=== PATIENT | male | born 1945 | race Caucasian/White ===

== ENCOUNTER → 2019-06-03 08:24 | Outpatient (CLI) | payer MEDICARE, SELFPAY ==
--- NOTE | 2019-06-03 08:29 | NM_ITS ---
CLINICAL: 76-year-old male with reported history of painful left knee arthroplasty operated approximately 12 years previous. LIMITED 99m Tc MDP THREE PHASE BONE SCINTIGRAPHY COMPARISON: None available FINDINGS: Following the intravenous administration of 21.3 mCi of 99m Tc MDP, three-phase bone acquisitions of the knee articulations reveal: 1. The flow and immediate static blood pool acquisitions demonstrate normal-symmetric arterial phase distribution of the radiopharmaceutical. Venous hyperemia appears evident in the region of the left patella. 2. Delayed images depict persistent increased radiopharmaceutical concentration visualized in the left knee-patella corresponding to the blood pool changes. 3. Facilitated uptake is noted in the medial-lateral tibial and distal tibial components of both the painful left and asymptomatic right knee prostheses. 4. Mild increased tracer distribution is noted in the patellofemoral compartment of the right knee. The remaining limited skeletal structures are scintigraphically unremarkable. NM/Bone Scan Three Phase IMPRESSION: 1. The increase in radiopharmaceutical concentration identified in the left patella likely represents trauma-fracture. 2. Enhanced tracer distribution noted in the tibial components of the painful left knee prosthesis may represent minimal loosening. If an infectious etiology is a diagnostic consideration, correlation with labeled leukocyte imaging is recommended. 3. Increased radiotracer uptake noted in the tibial components of the asymptomatic right knee prosthesis is most consistent with normal postsurgical change. Patellofemoral compartment uptake noted in the right knee is commensurate with degenerative arthritis in the absence of patellar hardware placement. Electronically Signed: Néstor Hodge DO at 23:39 EDT Tel , Service support ,
== END ==
PROVIDERS: Family Provider Internal Medicine; PCP Internal Medicine; Referring Provider Physician Assistant; Visit Provider Physician Assistant
DX: Z96.652 Presence of left artificial knee joint (principal)
CPT/HCPCS: 78315

== ENCOUNTER → 2019-06-18 13:24 | Outpatient (CLI) | payer MEDICARE, SELFPAY ==
--- NOTE | 2019-06-18 13:26 | CT_ITS ---
STUDY: CT LEFT KNEE WITHOUT CONTRAST REASON FOR EXAM: Male, 74 years old. Pain after getting out of car, total knee replacement 12 years ago RADIATION DOSAGE (If Supplied By Facility): CTDIvol = ( 15.35 ) mGy, DLP = ( 416.39 ) mGycm TECHNIQUE: Transaxial CT imaging of the knee was performed. Coronal and sagittal images were reformatted. Individualized dose optimization techniques were used for this CT. COMPARISON: None. FINDINGS: Status post total left knee replacement changes are seen. The study is limited secondary to excessive scanning artifact. There is a small suprapatellar effusion. There is no evidence of fracture, dislocation, or implant loosening. CT/Extremity Lower without Contra IMPRESSION: Limited study secondary to excessive scanning artifact. Status post total left knee replacement changes noted with implants appearing in good position. There is no evidence of implant loosening or new associated fracture or dislocation. Plain film correlation may be helpful. Electronically Signed: Kavon Jerome MD at 20:07 EDT , Service support ,
== END ==
PROVIDERS: Family Provider Internal Medicine; PCP Internal Medicine; Referring Provider Specialist; Visit Provider Specialist
DX: M25.562 Pain in left knee (principal); Z96.652 Presence of left artificial knee joint
CPT/HCPCS: 73700

== ENCOUNTER 2019-07-10 09:02 | Inpatient (IN) | payer MEDICARE, SELFPAY ==
--- NOTE | 2019-06-24 08:04 | PCM.HP.BLA ---
History and Physical Patient Name: Nixon Byrd : 1945 From: JOHN VENEGAS PA-C DATE OF SURGERY: 07/10/2019 SCHEDULED PROCEDURE: Left knee polyethylene exchange and possible revision patella component HISTORY OF PRESENT ILLNESS: Preoperative history and physical exam was performed on June 20, 2019. This is a 74-year-old male who has presence of bilateral total knees with his left knee done on September 21, 2007 followed by the right knee on September 01, [address] Nadeem Figueroa. Patient has had pain in bilateral knees over the past 1-2 months. Patient's pain has been increased with going up and down stairs, walking, and standing. Pain is been intermittent and dull. Pain is located over the patella on the left. Patient has had difficult time with leisure activities such as playing softball with his granddaughters. He feels unsafe doing yard work due to the knee pain. He gets clunk sensation in the left knee. Problems after working on his knees in a trench initially. Patient did feel a small pop at that time in front of the knee. The left knee pain has been very disabling. He has been using 2 canes for ambulatory assistance. Pain is primarily over the patella. Patient did have a workup for lab work for infection which was negative. Patient currently denies any chest pain, shortness of breath, fevers chills, recent infections. He has medical history pertinent for fibromyalgia and hypertension. After failure of conservative measures and discussing treatment options of Dr. Richy Christine, the patient does wish to proceed with a revision left knee with polyethylene exchange and possible revision patella component. REVIEW OF SYSTEMS: ROS: Const: Denies anorexia, anxiety, change in appetite, fever and weight change,hard of hearing, and vision problems. CV: Denies chest pain, heart murmur, irregular heartbeat and peripheral vascular disease. Resp: Reports asthma and cough, but denies pneumonia, sleep apnea, shortness of breath, tuberculosis and wheezing. GI: Reports heartburn, but denies constipation, diarrhea, nausea, bloody stools and vomiting, and difficulty swallowing. : Denies incontinence. Musculo: Denies leg swelling, trouble walking and weakness and limp. Skin: Reports history of shingles, but denies Raynaud's and tattoo. Neuro: Denies ambulatory dysfunction, dizziness, numbness/tingling and tremor. Psych: Denies anxiety, depression, insomnia, mental illness and stress. Sánchez/Lymph: Denies anemia, bleeding/bruising tendency and past transfusion. Reviewed and updated. PAST MEDICAL HISTORY: Advance Care Plan: No Advance Directives Effective Date: 05/28/2019 PMH: Medical Problems: Arthritis, High Blood Pressure, Fibromyalgia Accidents: None Surgical Hx: Tonsillectomy - (1949) Knee Replacement - LT KNEE [facility] MSK 09/21/07 RT TKR - (09/01/2008) KNAPIC @ [facility] Hip Replacement LT - (2015) [facility] Anesthesia Complications: None Assistive Devices: Glasses, Cane Reviewed and updated. 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 Personal Habits: Cigarette Use: Former - 28 years 1 pack/day for 20 years.Smokeless Tobacco: Never Used Smokeless Tobacco.E-Cigarette Use: Never used.Alcohol: Occasionally.Drug Use: Denies Use.Enjoy Exercising: Exercises 1-3 X/Week. Reviewed and updated. VITALS: Ht: 61.5 Wt: 258lb Wt k.029 BMI: 48.0 BP: 145/90 Pulse: 91 Resp: 12 T: 98.2 T: 36.8C ALLERGIES: No Known Drug Allergy MEDICATIONS: Celebrex 200 mg I PO Q Day With Food, Hydrochlorothiazide 25 mg 1 PO daily, Nexium 40 mg 1 po daily, Diltiazem XR 240 mg 1 po daily, Centrum Silver 1 PO qd, Fish Oil 1200mg 2 po daily, Metamucil Original Texture 48.57 % daily, Lipitor 20 mg 1 po q hs, Aspir-81 81 mg 1 po qd, Flonase Allergy Relief 50 mcg/Act 1 spray in each nostril AT bedtime, Breo Ellipta 100-25 mcg/Inh 1 inhalation daily, Singulair 10 mg 1po daily @ bed, Ultram 50 mg 1-2 by mouth q6 hour as needed pain, Losartan Potassium 50 mg 1po bid, Magnesium Oxide 400 mg 1po qday PRE-OP EXAM: General appearance:NORMAL Other: Eyes: Conjunctivae and lids: NORMAL Pupils: ERR Ears, Nose, Mouth, and Throat: NORMAL Other: Inspection of lips, teeth and gums: NORMAL Other: Neck: Examination of neck: no masses noted. Respiratory: Assessment of respiratory effort: NORMAL Other: Auscultation of lungs: clear to auscultation no wheezes, rhonchi or rales. Cardiovascular: Auscultation of heart: regular rate and rhythm, no murmurs, gallops or rubs. Gastrointestinal: Exam of abdomen: soft, nontender, nondistended bowel sounds present. PHYSICAL EXAMINATION: Impression does walk with an antalgic gait requiring 2 canes. Previous left knee incision is well-healed without erythema or signs of infection. Patient does have tenderness to palpation along the left patella with a clunk with flexion to extension. Sensation intact to light touch. Neurovascularly intact. IMAGING STUDIES: X-rays of the left knee show well fixed femoral and tibial implants bilaterally. Patellas are not definitively viewable but on the left there does appear to be a lucency consistent with a vertical patella fracture. Bone scan also revealed postsurgical changes in the right tibia and possible loosening on the left. There are patella changes on the left side consistent with trauma or fracture. IMPRESSION: 1. Painful left total knee arthroplasty with concern for loosening of the patellar component 2. Hypertension 3. Fibromyalgia PLAN: Dr. Richy Christine did discuss and review with the patient all treatment options including surgical versus nonsurgical options. Patient does wish to proceed with the above-stated procedure. Potential risks, benefits, and complications of the procedure were discussed in detail including but not limited to , infection, nerve and blood vessel damage, persistent pain, numbness, tingling, paresthesias, blood clot, pulmonary embolism, and requirement for possible further surgery. The patient expressed full understanding and has no further questions for the doctor. Patient does agree to proceed with the above-stated procedure and has signed the surgery consent form. This dictation was created using voice recognition software. Phonetic and/or grammatical errors may exist.. ___ I have re-examined the patient. There are no clinical changes since date of exam. ___ See progress notes for changes. ___ Dictated on admission Date: Time: Signature:
[2019-06-27 14:33] VITALS: BP 144/87; PULSE 78; RESP 18; TEMP 36.8; O2SAT 93; BMI 39.9
--- NOTE | 2019-06-27 15:05 | SDCEKG_ITS ---
Test Reason : Blood Pressure : / mmHG Vent. Rate : 069 BPM Atrial Rate : 069 BPM P-R Int : 170 ms QRS Dur : 134 ms QT Int : 450 ms P-R-T Axes : 053 018 003 degrees QTc Int : 482 ms Normal sinus rhythm Right bundle branch block Abnormal ECG Confirmed by ZOYA MOJICA ([id number]), order editor QUENTIN DA SILVA ([id number]) on 07/02/2019 1:03:32 PM Referred By: Richy Christine Confirmed By:ZOYA MOJICA
[2019-06-27 16:32] LABS: Anion Gap 4 (5-15); BUN 21 mg/dL (7-18); BUN/Creat Ratio 19.8 RATIO (10-20); Calcium,Total 9.1 mg/dL (8.5-10.1); Chloride 106 mmol/L (98-107); Creatinine, Serum 1.06 mg/dL (0.70-1.30); EST Glomerular Filtration Rate 72 mL/min (>60); Est Glom Filt Rate - Afr Amer 87 mL/min (>60); Estimated Creatinine Clearance 55.43 ml/min; Glucose 98 mg/dL (74-106); Potassium 3.7 mmol/L (3.5-5.1); Sodium Level 139 mmol/L (136-145)
[2019-07-10] VITALS (15 sets, daily range): BP systolic 125–165; BP diastolic 70–105; PULSE 80–95; RESP 18; TEMP 36.4–37.5; O2SAT 88–98; BMI 40.6
[2019-07-10] MEDS: Scopolamine 1mg/72hr Patch 1 PATCH TRANSDERM. (09:55)
[2019-07-10] MEDS: Gabapentin 600 MG Tablet PO (09:56)
[2019-07-10] MEDS: Acetaminophen 500 MG Tablet 1000 MG PO ×2 (09:56→18:11)
[2019-07-10] MEDS: Magnesium Sulfate 4gm/100mL 4 GM/100 ML IV.SOLN. IV (10:09)
[2019-07-10] MEDS: Lactated Ringers 1,000 ML 999 ML IV ×2 (10:11→14:13)
[2019-07-10 10:31] LABS: Bedside Glucose 96 mg/dL (70-110)
[2019-07-10] MEDS: Cefazolin 2 GM in 0.9% Normal Saline 100 ML IV (12:16)
--- NOTE | 2019-07-10 13:05 | OP.PCM_ITS ---
Report of Operation Date of Procedure: 07/10/19 Pre-Operative Diagnosis: Painful left total knee replacement, instability Post-Operative Diagnosis: Painful left total knee replacement, fractured polyethylene Surgery/Procedure Performed:: Revision total knee replacement 1 component, tibia Description of Surgical Findings:: 12 mm polyethylene was removed with fractured PS post and associated polyethylene wear. Patella and femoral and tibial components were stably effects. 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 Patient continued to have pain. Bone scan was not convincing for loosening. However he did have instability on examination. We attributed this to polyethylene wear and elected to proceed with polyethylene exchange. He also had some increased signal in the patella CT scan was done to rule out a fracture. We did discuss possibility of patella loosening to be determined intraoperatively and possible polyethylene exchange with a patella revision. Risks and benefits of the procedure were discussed with the patient including but not limited to blood loss, DVTs, PEs, neurovascular damage, infection, general risk of anesthesia including loss of life. Demonstrated understanding and was able to sign informed consent. On the date of procedure patient's L lower extremity was marked in the preopera tive area. The patient was then taken back to the operating room where the patient was placed on the table in the supine position. All bony prominences were identified a well-padded. Anesthesia assumed control of the C-spine and airway and remained controlled throughout the remainder of the procedure. A tourniquet was placed on the operative thigh and the leg was prepped in a sterile fashion. The surgeon then scrubbed at this time .Upon reentering the room left lower extremity was draped in a standard orthopedic fashion. A timeout was then called and everyone agreed upon the side, the site, the procedure to be performed, patient's identity and antibiotics given. A midline skin incision was made and sharp dissection was taken down through skin subcutaneous tissue and fat. Appropriate flaps were elevated medially and laterally. His arthrotomy was identified and the standard medial parapatellar incision was made and the patella was subluxed laterally. Upon opening the joint a small polyethylene tube fell out of the joint. This was the polyethylene post for the PS implant. The standard deep MCL release was done. At this point an aggressive synovectomy commenced. Our attention was first turned towards the subpatellar pouch and all suspicious synovium and tissues were debrided. We then directed our attention towards medial lateral gutters were these tissues were aggressively debrided. Knee was then flexed up the polyethylene was removed. Once polyethylene was removed we did the remainder of the synovium in the medial and lateral gutters and along the lateral structures and MCL. We then debrided the posterior knee. Knee was flexed up and culture was taken from the femoral notch. And also there was a membrane beneath the tibial baseplate that was removed and sent for culture. He had completed our synovectomy and were happy with the joint, the wound implants were examined. All implants appear to be well fixed even the patella. 6 L of normal saline were then irrigated throughout the wound with low-pressure lavage and the wound was once again explored. All remaining tissue that was suspicious was seen in the wound was once again irrigated with normal saline. 12 mm polyethylene was trialed and gave the knee stability. The 12 mm polyethylene was then opened and put back into place after appropriate trialing. Tourniquet was let down and hemostasis was obtained as well as possible. Once the final components were placed the wound was copiously irrigated with normal saline solution. The wound was closed in a layer solorzano fashion using #1 vicryl interrupted sutures for the arthrotomy, 2-0 interrupted Vicryl for the subcuticular layer and jaqui for final skin closure. A sterile compressive dressing was then placed. The patient was then awakened from anesthesia, transferred to the [place] and transferred to the PACU for recovery. Post op plan Patient will be weightbearing as tolerated. Baby aspirin twice daily for DVT prophylaxis. Range of motion and activity as tolerated. My physician nursing home assistant was a vital part of this case. He was important in appropriate retraction during the case, and protection of soft tissues during bony cuts. His intimate knowledge of the case and my steps aided in safe and expedient completion of the procedure as well as appropriate position of the leg during the case. He was also vital in assisting with closure under my direct supervision. Grafts/Implants Used: Natalia NexGen EF 12 mm posterior stabilized highly cross- linked polyethylen - Complications No intraoperative complications - Admit VTE Documentation VTE Present on Admission: No VTE Mechan Device Prophylaxis: SCD's, Thigh High EDMUNDO Hose VTE Pharm Prophylaxis ordered?: Yes
--- NOTE | 2019-07-10 13:14 | RAD_ITS ---
STUDY: X-RAY - LEFT KNEE REASON FOR EXAM: Male, 74 years old. Status post knee arthroplasty TECHNIQUE: 2 view(s) of the knee. COMPARISON: None. FINDINGS: Normal visualized distal femur. Normal visualized proximal tibia and fibula. Normal proximal tibiofibular articulation. Status post recent total knee arthroplasty with skin jaqui and subcutaneous emphysema.. The soft tissue structures are unremarkable. RAD/Knee 1 or 2 Views IMPRESSION: Status post recent total knee arthroplasty. Electronically Signed: Néstor Ash MD at 14:03 EDT Tel , Service support ,
[2019-07-10] MEDS: Lactated Ringers 1,000 ML 125 ML IV ×2 (14:14→17:07)
[2019-07-10] MEDS: Aspirin 81 MG TAB.CHEW PO (17:05)
--- NOTE | 2019-07-10 19:54 | PCM.PN.HOSP ---
Subjective: Post-op medical management note: 74-year-old male with past medical history of arthritis, high blood pressure, tonic back pain who comes in for elective left knee polyethylene exchange and revision of his patella. We have been consulted for medical management. Patient has been having worsening pain in his bilateral knees ongoing for 1 to 2 months, was with going up and down the staircase. At the time of being seen, patient denied any fever or chills or chest pain or dizziness or palpitations. Vitals showed temperature 97.5 F, heart rate 93, blood pressure 127/85, respiratory 18, SPO2 was 94% on room air. His BMP was unremarkable. Vitals/I&O's: Vital Signs Temp Pulse Resp BP Pulse Ox 98.4 F 91 18 128/72 H 93 07/10/19 19:40 07/10/19 19:40 07/10/19 19:40 07/10/19 19:40 07/10/19 19:50 Oxygen Flow Rate (L/min) 2 Oxygen Delivery Method Nasal Cannula Weight: 117.5 kg Body Mass Index (BMI) 40.6 Intake and Output for Last 24 Hours 07/08/19 07/09/19 07/10/19 23:59 23:59 23:59 Intake Total 3105.41 / 3105.41 Balance 3105.41 / 3105.41 General: Alert, Oriented x3, Cooperative, No apparent distress, - - Morbidly obese HEENT: Atraumatic, PERRLA, EOMI, Normocephalic Oral: Moist Mucosa Neck: Supple Lungs: Clear to auscultation, Normal air movement Cardiovascular: Regular rate, Regular Rhythm, Normal S1, Normal S2, No murmurs Abdomen: Bowel Sounds Present, Soft, Non Tender, Non-Distended, No Hepato-splenomegaly Extremities: No edema Skin: No rashes, No breakdown Musculoskeletal: No Tenderness to Palpation of Joints or Extremities Lymphatic: No Cervical, Supraclavicular, or Inguinal Adenopathy Neurological: Cranial nerves II-XII grossly intact, Neuro grossly intact Psych/Mental Status: Normal Affect, Appropriate Microbiology Past 72 Hours 07/10/19 Unknown Tissue - Knee Gram Stain - Final 07/10/19 Unknown Tissue - Knee Gram Stain - Final 07/10/19 Unknown Tissue - Knee Gram Stain - Final Laboratory Results 07/10/19 09:54: POC Glucose 96 Current Medications Acetaminophen (Tylenol) 1,000 mg PO Q8 [facility] Last Admin: 07/10/19 18:11 Dose: 1,000 mg Documented by: Albuterol Sulfate (Ventolin Aerosols) 2.5 mg INHALATION Q4H PRN PRN Reason: ASTHMA [facility]ir[facility] ([facility], Baby) [facility] Last Admin: 07/10/19 17:05 Dose: 81 mg Documented by: Atorvastatin Calcium (Lipitor) 20 mg PO QHS [facility] Celecoxib (Celebrex) 200 mg PO DAILY [facility] Diltiazem HCl (Cardizem Cd) 240 mg PO DAILY [facility] Famotidine (Pepcid) 20 mg PO DAILY [facility] Hydrochlorothiazide (Hctz) 25 mg PO DAILY [facility] Lactated Ringer's () 1,000 mls @ 125 mls/hr IV .Q8H [facility] Last Admin: 07/10/19 17:07 Dose: 125 mls/hr Documented by: Cefazolin Sodium () 1 gm in 50 mls @ 150 mls/hr IV Q8H [facility] Stop: 07/11/19 04:19 Influenza Virus Vaccine Quadrival (Flucelvax /Fluzone ) 0.5 ml IM .ONCE ONE Stop: 07/11/19 10:01 Insulin Human Lispro (Humalog Kwikpen (Bkc)) 1 - 6 unit SC Q4H PRN PRN; Protocol PRN Reason: BG>/= 180, SEE PROTOCOL Ketorolac Tromethamine (Toradol) 15 mg IV Q6H PRN PRN PRN Reason: Pain Score 1-5/10 Losartan Potassium (Cozaar) 50 mg PO BID [facility] Magnesium Oxide (Mag-Ox 400) 400 mg PO DAILY [facility] Meloxicam (Mobic) 7.5 mg PO BID [facility] Morphine Sulfate () 2 - 4 mg IV Q2H PRN PRN PRN Reason: Pain Score 6-10/10 Nutritional Formula (Lactose Free) (Ensure Enlive) 120 ml PO TIDCM [facility] Last Admin: 07/10/19 17:04 Dose: 120 ml Documented by: Ondansetron HCl (Zofran) 4 mg IV Q8H PRN PRN PRN Reason: NAUSEA Oxycodone HCl (Oxyir) 5 - 10 mg PO Q4H PRN PRN PRN Reason: Pain Score 4-10/10 Pantoprazole Sodium (Protonix) 40 mg PO DAILY [facility] Promethazine HCl (Phenergan) 12.5 mg IM Q6H PRN PRN; Protocol PRN Reason: NAUSEA/VOMITING Psyllium Hydrophilic Mucilloid (Metamucil) 1 packet PO DAILY [facility] Senna/Docusate Sodium (Senokot-S, Alicia-Colace) 2 tablet PO BID [facility] Vital Signs/Narrative: Vital Signs Temp Pulse Resp BP Pulse Ox 07/10/19 19:50 93 07/10/19 19:40 98.4 F 91 18 128/72 H 98 07/10/19 17:24 18 07/10/19 17:10 97.5 F L 93 18 127/85 H 94 Medical Necessity - Tobacco Use Smoking Status: Former smoker Tobacco Use: Non-smoker Assessment/Plan 1. Postop day #2 status post revision total knee replacement, pain is fairly controlled On scheduled Tylenol, celecoxib, meloxicam and as needed morphine Would recommend the patient be on one NSAID or not to NSAIDs at once We will hold meloxicam for now 2. Hypertension, will continue on diltiazem, hydrochlorothiazide 3. Hyperlipidemia, on statin 4. Morbid obesity, BMI 40.6, diet and exercise is recommended 5. DVT prophylaxis per primary team Code Visit Inpatient E&M: 85384 Subs Hosp L2
[2019-07-10] MEDS: Cefazolin 1 GM/50 ML BAG IV (20:01)
[2019-07-10] MEDS: Atorvastatin Calcium 20 MG Tablet PO (21:50)
[2019-07-10] MEDS: Losartan Potassium 50 MG Tablet PO (21:50)
[2019-07-10] MEDS: Senna/Docusate Sodium 1 Tablet 2 TABLET PO (21:50)
[2019-07-11] VITALS (7 sets, daily range): BP systolic 132–155; BP diastolic 64–89; PULSE 67–90; RESP 18; TEMP 36.4–37.2; O2SAT 89–96; BMI 40.6
[2019-07-11] MEDS: Cefazolin 1 GM/50 ML BAG IV (03:03)
[2019-07-11] MEDS: 0.9% Saline Lock 10 ML Syringe IV (05:16)
[2019-07-11] MEDS: Acetaminophen 500 MG Tablet 1000 MG PO ×2 (05:20→15:17)
[2019-07-11 05:53] LABS: Hemoglobin 14.6 g/dL (13.0-16.5); Mean Corp Hgb Conc 32.4 g/dL (32-36); Mean Corpuscular Hgb 29.1 pg (27.0-32.0); Mean Corpuscular Volume 89.8 fL (80-94); Mean Platelet Vol. 11.2 fl (6.2-12.0); Platelet Count 180 K/mm3 (150-450); RBC Distribution Width CV 13.3 % (11.6-14.6); RBC Distribution Width SD 43.8 fl (35.1-43.9); Red Blood Count 5.01 M/mm3 (4.6-6.2); White Blood Count 14.8 K/mm3 (4.4-11.0)
[2019-07-11 06:14] LABS: Anion Gap 11 (5-15); BUN 22 mg/dL (7-18); BUN/Creat Ratio 17.2 RATIO (10-20); Calcium,Total 8.5 mg/dL (8.5-10.1); Chloride 101 mmol/L (98-107); Creatinine, Serum 1.28 mg/dL (0.70-1.30); EST Glomerular Filtration Rate 58 mL/min (>60); Est Glom Filt Rate - Afr Amer 70 mL/min (>60); Glucose 136 mg/dL (74-106); Potassium 4.3 mmol/L (3.5-5.1); Sodium Level 137 mmol/L (136-145)
--- NOTE | 2019-07-11 08:26 | PCM.PN.ORT ---
Subjective: The patient was sitting in bed upon examination. Patient denies any chest pain, shortness of breath, dizziness, lightheadedness, nausea or vomiting, or calf pain. Pain is controlled on medications. No adverse overnight events. Patient's pain is been well controlled. Patient did require nasal oxygen due to drop in O2 saturation. He denies any chest pain or shortness of breath. Patient does have history of asthma at home in which he takes an inhaler. Overall patient is doing well postoperatively. Objective: Vital signs stable and afebrile. Patient is currently on nasal oxygen due to drop in O2 saturation. Patient is able to plantarflex and dorsiflex actively. Sensation is intact to light touch to saphenous, sural, superficial and deep peroneal, and tibial distribution. Dressing is clean dry and intact. Negative Homans bilaterally, negative signs and symptoms of DVT. - Physical Exam General: Alert, Oriented x3, Cooperative, No apparent distress Vital Signs Temp Pulse Resp BP Pulse Ox 97.6 F L 67 18 146/64 H 94 07/11/19 02:54 07/11/19 05:33 07/11/19 02:54 07/11/19 05:33 07/11/19 06:15 Oxygen Flow Rate (L/min) 1 Oxygen Delivery Method Nasal Cannula Weight: 117.5 kg Body Mass Index (BMI) 40.6 Intake and Output for Last 24 Hours 07/09/19 07/10/19 07/11/19 23:59 23:59 23:59 Intake Total 3517.91 / 3517.91 625.67 / 625.67 Output Total 800 / 800 850 / 850 Balance 2717.91 / 2717.91 -224.33 / -224.33 Microbiology Past 72 Hours 07/10/19 Unknown Gram Stain - Final Tissue - Knee 07/10/19 Unknown Gram Stain - Final Tissue - Knee 07/10/19 Unknown Gram Stain - Final Tissue - Knee Laboratory Tests Past 24 Hrs 07/11/19 07/11/19 05:22 05:22 WBC 14.8 H RBC 5.01 Hgb 14.6 Hct 45.0 MCV 89.8 MCH 29.1 MCHC 32.4 RDW Std Deviation 43.8 RDW Coeff of Bijan 13.3 Plt Count 180 MPV 11.2 Sodium 137 Potassium 4.3 Chloride 101 Carbon Dioxide 25.0 Anion Gap 11 BUN 22 H Creatinine 1.28 Estim Creat Clear Calc 45.90 Est GFR (MDRD) Af Amer 70 Est GFR (MDRD) Non-Af 58 L BUN/Creatinine Ratio 17.2 Glucose 136 H Calcium 8.5 POC Glucose 07/10/19 09:54 POC Glucose 96 Medical Necessity - Tobacco Use Smoking Status: Former smoker Tobacco Use: Non-smoker Assessment/Plan 1. S/P revision left total knee arthroplasty with polyethylene exchange POD #1 2. Continue Pain Medications: Tylenol and OxyIR 3. DVT Prophylaxis: Aspirin 81 mg twice daily for DVT prophylaxis 4. PT/OT: Weightbearing as tolerated 5. H & H: 14.6/45.0, asymptomatic 6. Reactive leukocytosis: Currently 14.8, afebrile. Patient did receive Decadron intraoperatively 7. Continue postoperative medical management per medicine: At this time patient is overall doing well and I would like to see how he does weaning off of oxygen today. If patient is doing well plan will be for possible discharge home today. Case was discussed with medicine 8. Encouraged Incentive Spirometry 9. Continue antibiotics while following cultures: Currently on doxycycline 10. Disposition: Plan will be for possible discharge home today. Prescriptions will be attached to chart. Patient will follow-up per postop instructions. Outpatient physical therapy has been established..
--- NOTE | 2019-07-11 08:39 | PCM.DC.TKR ---
Discharge Diet: No Restrictions Discharge Activity: May Not Drive May shower in (days): 1 - Turn dressing away from water Ice area for (Minutes): 20 - Every 1-2 hours while awake Weight Bearing Status: Weight bearing as tolerated Elevate: Operative Extremity Additional Activity Instructions:: Wear elastic stockings for 2 weeks after your surgery. Call your doctor if your incision/area has: Continuous Slow Oozing, Sudden Increased Bleeding, Increased Pain/ Swelling, Increased Redness, Foul Smelling Discharge Call your doctor if you observe: Fever of 101 or Higher, Coldness, Increased Pain, Numbness or Tingling, Change in Color, Calf discomfort, Uncontrolled pain Remove Dressing in (days):: 4 - Okay to remove dressing on July 15, 2019 Additional Instructions: Follow orthopedic postop instructions Continue with incentive spirometry Allergies/Adverse Reactions: Allergies No Known Allergies Allergy (Verified 07/10/19 09:39) Medications to take at Discharge Albuterol Inhaler [Ventolin Hfa] 2 puff INHALATION Q4H PRN PRN 06/27/19 Atorvastatin Calcium [Lipitor] 20 mg PO QHS 06/27/19 Celecoxib [Celebrex] 200 mg PO DAILY 06/27/19 Diltiazem HCl [Cartia Xt] 240 mg PO DAILY 06/27/19 Esomeprazole Mag Trihydrate [Nexium] 40 mg PO DAILY 06/27/19 Hydrochlorothiazide [Hctz] 25 mg PO DAILY 06/27/19 Losartan Potassium [Cozaar] 50 mg PO BID 06/27/19 Magnesium Oxide 400 mg PO DAILY 06/27/19 Multivit-Min/FA/Lycopen/Lutein [Centrum Silver Men Tablet] 1 ea PO DAILY 06/27/19 Psyllium [Metamucil] 1 packet PO DAILY 06/27/19 Acetaminophen [Tylenol] 1,000 mg PO Q8 #100 tab 07/11/19 Aspirin [Aspirin, Baby] 81 mg PO BIDCM #60 tab 07/11/19 Doxycycline 100 mg PO BID #12 cap 07/11/19 Oxycodone [Oxyir] 5 - 10 mg PO Q4H PRN PRN 4 Days #48 tablet 07/11/19 Senna/Docusate Sodium [Senokot-S] 2 tab PO BID #10 tab 07/11/19 The following prescriptions were given: Aspirin [Aspirin, Baby] 81 mg PO BIDCM #60 tab Transmission Status: Pending to [email or web address] Doxycycline 100 mg PO BID #12 cap Transmission Status: Pending to [facility] Oxycodone [Oxyir] 5 - 10 mg PO Q4H PRN PRN 4 Days #48 tablet PRN Reason: Pain Score 4-10/10 Transmission Status: Received by [facility] Senna/Docusate Sodium [Senokot-S] 2 tab PO BID #10 tab Transmission Status: Pending to [facility] Acetaminophen [Tylenol] 1,000 mg PO Q8 #100 tab Transmission Status: Pending to [facility] Primary Care Physician: Juancarlos Daley MD [Primary Care Provider] - Test Results: Test results from this visit will be discussed in further detail at your follow-up appointment, if applicable. Please Follow Up With: [facility] When: 07/15/19 @ 2:30 pm Please Follow Up With: Mehdi Rinaldi PA-C When: 07/24/19 @ 10:00 am
[2019-07-11] MEDS: Psyllium 1 PACKET PO (09:58)
[2019-07-11] MEDS: Senna/Docusate Sodium 1 Tablet 2 TABLET PO (09:59)
[2019-07-11] MEDS: Pantoprazole Sodium 40 MG Tablet PO (10:00)
[2019-07-11] MEDS: Magnesium Oxide 400 MG Tablet PO (10:00)
[2019-07-11] MEDS: Losartan Potassium 50 MG Tablet PO (10:00)
[2019-07-11] MEDS: dilTIAZem CD 240 MG Capsule PO (10:00)
[2019-07-11] MEDS: hydroCHLOROthiazide 25 MG Tablet PO (10:01)
[2019-07-11] MEDS: Famotidine 20 MG Tablet PO (10:01)
[2019-07-11] MEDS: Celecoxib 200 MG Capsule PO (10:01)
[2019-07-11] MEDS: Aspirin 81 MG TAB.CHEW PO (10:01)
[2019-07-11] MEDS: Doxycycline 100 MG CAPSULE PO (10:11)
--- NOTE | 2019-07-11 10:55 | CASEMGMT ---
ALINA AHN Face to Face with patient for initial transition planning/care coordination assessment. RN ANABELLE introduced self and role at [facility]. Patient sitting in chair, alert and oriented. Patient willing to participate in assessment and is able to answer all questions appropriately. Care providers, pharmacy, and demographics verified. Patient wishes to discharge home and is setup with [facility] for outpatient therapy. Patient states he has no further needs or concerns at this time. CM to follow for discharge planning needs that may arise. PCP: Edi Specialists: Nanci, ortho; Grimes, pain; Obrych, measurer machine Preferred Pharmacy: [facility] Insurance: [employer] Prescription Benefit: yes Living Will/HPOA: yes, Brina Byrd LNOK: Living Arrangements: patient lives with in house with bed and bath on the first floor, 4 steps to enter the home. Patient independent at home prior to surgery Transportation: DME/HHC: Patient states he has shower chair, raised toilet, cane, walker, grab bars, and nebulizer at home. Patient states he has had HHC in past through [facility]. Patient states he is scheduled for outpatient therapy on Monday. Disposition Plan: Patient to discharge home with outpatient therapy, family support, and follow-up plans in place. Jany PATEL, RN, CM
--- NOTE | 2019-07-11 11:32 | CASEMGMT ---
LW/POA forms scanned into echart. SW printed and will place in paper chart to be scanned into summary tab of echart at discharge. Pt has Brina Byrd listed as Healthcare POA. NOHELIA Handy
[2019-07-11] MEDS: oxyCODONE 5 MG Tablet PO (12:58)
--- NOTE | 2019-07-11 14:09 | PCM.PROGNOTE ---
<Daren Witt - Last Filed: 07/11/19 14:09> Subjective: Patient resting comfortably in bed. Tolerated PT OT well this morning. Minimal pain. No fevers or chills. Denies shortness of breath. Had mild hypoxia overnight. He was not using his incentive spirometer. No cough. No nausea or vomiting. He otherwise feels well and is anticipating discharge. - Physical Exam General: Alert, Oriented x3, Cooperative HEENT: Atraumatic, PERRLA, EOMI, Normocephalic Neck: Supple, No JVD, Negative Carotid Bruits Lungs: Clear to auscultation, Normal air movement Cardiovascular: Regular rate, No murmurs Abdomen: Bowel Sounds Present, Soft, Non Tender Extremities: No edema, Capillary Refill Less than 3 Seconds Skin: No rashes, No breakdown Musculoskeletal: No Tenderness to Palpation of Joints or Extremities Neurological: Cranial nerves II-XII grossly intact Psych/Mental Status: Normal Affect, Appropriate, Alert and oriented to time, place, person, mood and affect Vital Signs Temp Pulse Resp BP Pulse Ox 98.0 F 90 18 155/84 H 95 07/11/19 09:55 07/11/19 09:55 07/11/19 09:55 07/11/19 09:55 07/11/19 09:55 Oxygen Flow Rate (L/min) 1 Oxygen Delivery Method Room Air Weight: 259 lb 0.69 oz Body Mass Index (BMI) 40.6 Intake and Output for Last 24 Hours 07/09/19 07/10/19 07/11/19 23:59 23:59 23:59 Intake Total 3517.91 / 3517.91 625.67 / 625.67 Output Total 800 / 800 850 / 850 Balance 2717.91 / 2717.91 -224.33 / -224.33 Microbiology Past 72 Hours 07/10/19 Unknown Gram Stain - Final Tissue - Knee Wound Culture - Preliminary No growth-Final to follow 07/10/19 Unknown Gram Stain - Final Tissue - Knee Wound Culture - Preliminary No growth-Final to follow 07/10/19 Unknown Gram Stain - Final Tissue - Knee Wound Culture - Preliminary No growth-Final to follow Laboratory Tests Past 24 Hrs 07/11/19 07/11/19 05:22 05:22 WBC 14.8 H RBC 5.01 Hgb 14.6 Hct 45.0 MCV 89.8 MCH 29.1 MCHC 32.4 RDW Std Deviation 43.8 RDW Coeff of Bijan 13.3 Plt Count 180 MPV 11.2 Sodium 137 Potassium 4.3 Chloride 101 Carbon Dioxide 25.0 Anion Gap 11 BUN 22 H Creatinine 1.28 Estim Creat Clear Calc 45.90 Est GFR (MDRD) Af Amer 70 Est GFR (MDRD) Non-Af 58 L BUN/Creatinine Ratio 17.2 Glucose 136 H Calcium 8.5 Medical Necessity - Tobacco Use Smoking Status: Former smoker Tobacco Use: Non-smoker Assessment/Plan 1. Left knee revision postop day #2-doing well. Care as per Ortho. Pain controlled. Doing well with PT OT. 2. Transient hypoxia-continue incentive spirometer at least 10 times per hour. This is already resolved and the patient is doing well off oxygen. 3. Hypertension-continue home meds. Mildly elevated, defer altering his regimen with his acute orthopedic issue, will need follow-up with his PCP as an outpatient. 4. Hyperlipidemia-continue statin. 5. Morbid obesity-with his ongoing orthopedic issues he would benefit from aggressive weight loss. DVT prophylaxis-Per Ortho Thank you for the opportunity to participate in the care of this patient. This patient was seen by Daren Witt PA-C under the supervision of Doctor Joe. <Sony Diaz F - Last Filed: 07/11/19 14:24> - Physical Exam Vital Signs Temp Pulse Resp BP Pulse Ox 98.0 F 90 18 155/84 H 95 07/11/19 09:55 07/11/19 09:55 07/11/19 09:55 07/11/19 09:55 07/11/19 09:55 Oxygen Flow Rate (L/min) 1 Oxygen Delivery Method Room Air Weight: 259 lb 0.69 oz Body Mass Index (BMI) 40.6 Intake and Output for Last 24 Hours 07/09/19 07/10/19 07/11/19 23:59 23:59 23:59 Intake Total 3517.91 / 3517.91 625.67 / 625.67 Output Total 800 / 800 850 / 850 Balance 2717.91 / 2717.91 -224.33 / -224.33 Microbiology Past 72 Hours 07/10/19 Unknown Gram Stain - Final Tissue - Knee Wound Culture - Preliminary No growth-Final to follow 07/10/19 Unknown Gram Stain - Final Tissue - Knee Wound Culture - Preliminary No growth-Final to follow 07/10/19 Unknown Gram Stain - Final Tissue - Knee Wound Culture - Preliminary No growth-Final to follow Laboratory Tests Past 24 Hrs 07/11/19 07/11/19 05:22 05:22 WBC 14.8 H RBC 5.01 Hgb 14.6 Hct 45.0 MCV 89.8 MCH 29.1 MCHC 32.4 RDW Std Deviation 43.8 RDW Coeff of Bijan 13.3 Plt Count 180 MPV 11.2 Sodium 137 Potassium 4.3 Chloride 101 Carbon Dioxide 25.0 Anion Gap 11 BUN 22 H Creatinine 1.28 Estim Creat Clear Calc 45.90 Est GFR (MDRD) Af Amer 70 Est GFR (MDRD) Non-Af 58 L BUN/Creatinine Ratio 17.2 Glucose 136 H Calcium 8.5 Code Visit Addendum: Dr. Diaz I personally examined the patient and reviewed the chart. I agree with the above. 74-year-old male postop day 1 from a left postop total knee revision. He had both knees done in 2006 2007, and he has had to have revision of his left yesterday. He is feeling great from a knee standpoint, and we are consulted for medical management. His medical conditions prior to surgery were stable and he had some postoperative hypoxia necessitating oxygen via nasal cannula. However today with ambulation and physical therapy he was examined on the side of the bed eating breakfast without any oxygen and tolerating it very well. He is cleared for discharge from a medical standpoint with outpatient follow-up with his PCP in 3 to 5 days. Inpatient E&M: 69228 Subs Hosp L2
== END 2019-07-11 15:33 | disposition home or self-care (01) | DRG 467 ==
LOC: MS3 07-11 07:37 → ACINP 07-11 10:12 → MS3 07-11 10:13
PROVIDERS: Anesthesiology; Admitting Provider Specialist; Family Provider Internal Medicine; PCP Internal Medicine; Referring Provider Specialist; Visit Provider Family Medicine
PROC: 0SPW0JZ Removal of Synthetic Substitute from Left Knee Joint, Tibial Surface, Open Approach (ICD-10-PCS; CPT 27487; principal; 2019-07-10 10:55)
DX: T84.063A Wear of articular bearing surface of internal prosthetic left knee joint, initial encounter (principal); Z68.41 Body mass index [BMI] 40.0-44.9, adult; T84.033A Mechanical loosening of internal left knee prosthetic joint, initial encounter; T84.84XA Pain due to internal orthopedic prosthetic devices, implants and grafts, initial encounter; I10 Essential (primary) hypertension; M19.90 Unspecified osteoarthritis, unspecified site; M79.7 Fibromyalgia; K21.9 Gastro-esophageal reflux disease without esophagitis; J45.909 Unspecified asthma, uncomplicated; E66.01 Morbid (severe) obesity due to excess calories; E78.5 Hyperlipidemia, unspecified; R09.02 Hypoxemia; D72.828 Other elevated white blood cell count; Z96.653 Presence of artificial knee joint, bilateral; Z96.642 Presence of left artificial hip joint; Z79.82 Long term (current) use of aspirin; Z79.899 Other long term (current) drug therapy; Z87.891 Personal history of nicotine dependence
CPT/HCPCS: 36415; 73560; 80048; 82962; 85027; 87015; 87070; 87075; 87081; 87102; 87116; 87176; 87205; 87206; 93005; 97110; 97162; 97166; 97530; 99251; C1776; J7120; 90686; A4216; G0463; J2405

== ENCOUNTER → 2019-08-21 12:39 | Outpatient (CLI) | payer MEDICARE, SELFPAY ==
[2019-07-10 15:53] VITALS: BMI 40.6
--- NOTE | 2019-08-21 12:50 | VDLE_ITS ---
Reason For Study: LLE pain RIGHT LEFT CFV is compressible, spontaneous, phasic, GSV is normal. competent and demonstrates normal CFV is compressible, spontaneous, phasic, augmentation. competent, and demonstrates normal Procedure augmentation. Exam performed in department. FV is compressible, spontaneous, phasic, The exam was diagnostic. competent and demonstrates normal A preliminary report was called and/or faxed augmentation. to Dr. Richy Christine @ [phone] @ 1:30 POP V is compressible, spontaneous, phasic, pm. competent and demonstrates normal augmentation. T/P Trunk is compressible. PTV is compressible. LT PerV is compressible. Interpretation Summary Deep veins of the left lower extremity are patent and compressible segmentally. There is no evidence of left lower extremity deep vein thrombosis. Valvular competence appears intact within the proximal deep venous system on the left . The left great saphenous vein appears patent and compressible segmentally. Ordering Physician: Richy Christine Referring Physician: Juancarlos Daley Performed By: Brina Lala, NARINDER, RVT
== END ==
PROVIDERS: Family Provider Internal Medicine; PCP Internal Medicine; Referring Provider Specialist; Visit Provider Specialist
DX: M79.662 Pain in left lower leg (principal)
CPT/HCPCS: 93971

== ENCOUNTER 2021-06-08 19:57 | Inpatient (IN) | payer MEDICARE, SELFPAY ==
[2021-06-08 19:58] VITALS: BP 141/66; PULSE 78; RESP 22; TEMP 37.4; O2SAT 93; BMI 36.8
[2021-06-08 21:22] LABS: Absolute Lymphocyte Count 0.53 X10^3/uL (0.83-4.51); Absolute Neutrophil Count 5.2 X10^3/uL (2.0-7.7); Basophil# 0.01 X10^3/uL; Basophil% 0.2 % (0-1); Hematocrit 49.4 % (40-54); Hemoglobin 16.7 g/dL (13.0-16.5); Lymphocyte # 0.53 X10^3/ul (0.83-4.51); Lymphocyte % 8.7 % (19-41); Mean Corp Hgb Conc 33.8 g/dL (32-36); Mean Corpuscular Hgb 29.2 pg (27.0-32.0); Mean Corpuscular Volume 86.5 fL (80-94); Mean Platelet Vol. 11.4 fl (6.2-12.0); Monocyte# 0.34 X10^3/uL; Monocyte% 5.6 % (0-10); NRBC Flagged by Analyzer 0 % (0-5); Neutrophil # 5.21 X10^3/uL (2.7-7.7); Neutrophil % 85.2 % (47-70); POSITIVE DIFFERENTIAL YES; Platelet Count 110 K/mm3 (150-450); RBC Distribution Width CV 13.6 % (11.6-14.6); Red Blood Count 5.71 M/mm3 (4.6-6.2); White Blood Count 6.1 K/mm3 (4.4-11.0)
--- NOTE | 2021-06-08 21:27 | RAD_ITS ---
STUDY: X-RAY CHEST REASON FOR EXAM: Male, 76 years old. COUGH. COVID POSITIVE TECHNIQUE: Single frontal view of the chest. COMPARISON: None. FINDINGS: There are bilateral patchy opacities within the mid and lower lungs. Normal size heart. Normal mediastinum and samira. Normal visualized pulmonary arteries. Normal visualized aortic arch and descending thoracic aorta. Normal visualized thoracic spine. Normal visualized ribs, clavicles, and shoulders. There is no demonstrated abnormality of the visualized soft tissue structures of the upper abdomen. RAD/Chest 1 View (Portable) IMPRESSION: Bilateral patchy opacities concerning for multifocal pneumonia. Electronically Signed: Amy Lopez MD at 22:26 EDT Tel , Service support ,
[2021-06-08 21:30] VITALS: O2SAT 90
[2021-06-08 21:39] VITALS: O2SAT 96
[2021-06-08 21:45] LABS: Differential Indicated SCAN CRITERIA MET
[2021-06-08 21:47] LABS: Anion Gap 11 (5-15); BUN 43 mg/dL (7-18); BUN/Creat Ratio 25.3 RATIO (10-20); Calcium,Total 8.7 mg/dL (8.5-10.1); Chloride 96 mmol/L (98-107); EST Glomerular Filtration Rate 42 mL/min (>60); Est Glom Filt Rate - Afr Amer 50 mL/min (>60); Estimated Creatinine Clearance 33.48 ml/min; Glucose 141 mg/dL (74-106); Platelet Estimate MOD DEC (ADEQ); Potassium 3.9 mmol/L (3.5-5.1); Sodium Level 131 mmol/L (136-145)
[2021-06-08 21:48] LABS: Anisocytosis RARE; Red Cell Morphology N CHROM NORMAL (NORM C&C)
[2021-06-08 21:52] LABS: Procalcitonin 0.27 ng/mL (0.00-0.09)
[2021-06-08] MEDS: dexAMETHasone 4 MG/ML Vial 6 MG IV (22:15)
[2021-06-08] MEDS: 0.9% Normal Saline 1,000 ML 150 ML IV (22:16)
[2021-06-08] MEDS: 0.9% Normal Saline 1,000 ML 1000 ML IV (22:17)
[2021-06-08 23:19] LABS: D-Dimer Quantitative (DVT/PE) 0.78 FEU/ug/m (0.27-0.49)
--- NOTE | 2021-06-08 23:19 | ED.VIS.DYS ---
HPI History of Present Illness Chief Complaint: Cough Narrative Narrative: Patient presenting secondary to complications of coronavirus. Patient is on day #8 of symptoms. Patient states that he is having significant worsening of shortness of breath. He feels that he is dehydrated had decreased p.o. intake. Not had any nausea vomiting or diarrhea associated with it. Patient states that he does have an underlying history of asthma, he is a past smoker 30 years ago. Patient denies any chest pain. Patient still reports that he is getting chills and low-grade fevers as well as body aches and myalgias. Review of systems otherwise negative. PFSH PFSH Home Medications albuterol sulfate 2 puff INHALATION Q4H PRN PRN 06/27/19 [History Last Taken Unknown] atorvastatin 20 mg PO QHS 06/27/19 [History Last Taken Unknown] celecoxib 200 mg PO DAILY 06/27/19 [History Last Taken Unknown] diltiazem HCl 240 mg PO DAILY 06/27/19 [History Last Taken Unknown] esomeprazole magnesium 40 mg PO DAILY 06/27/19 [History Last Taken Unknown] hydrochlorothiazide 25 mg PO DAILY 06/27/19 [History Last Taken Unknown] losartan 50 mg PO BID 06/27/19 [History Last Taken 07/10/19] magnesium oxide 400 mg PO DAILY 06/27/19 [History Last Taken Unknown] usgpglsm-rao-KG-lycopen-lutein 1 ea PO DAILY 06/27/19 [History Last Taken Unknown] psyllium husk (aspartame) 1 packet PO DAILY 06/27/19 [History Last Taken Unknown] acetaminophen 1,000 mg PO Q8 #100 tab 07/11/19 [Rx Last Taken Unknown] aspirin 81 mg PO BIDCM #60 tab 07/11/19 [Rx Last Taken Unknown] doxycycline monohydrate 100 mg PO BID #12 cap 07/11/19 [Rx Last Taken Unknown] sennosides-docusate sodium 2 tab PO BID #10 tab 07/11/19 [Rx Last Taken Unknown] Allergy/AdvReac Type Severity Reaction Status Date / Time No Known Allergies Allergy Verified 06/08/21 19:58 Social History Smoking Status: Former smoker ROS ROS ED Constitutional Constitutional ED: Reports chills ENT ENT ED: Denies rhinorrhea Cardiovascular Cardiovascular: Denies chest pain Respiratory/Chest Respiratory/Chest: Reports cough and dyspnea Gastrointestinal Gastrointestinal: Reports other Details: Decreased p.o. intake Genitourinary Genitourinary ED: Denies dysuria or hematuria Musculoskeletal Musculoskeletal: Reports myalgias Integumentary Denies rash Neurologic Neurologic: Denies paresthesias or weakness Psychiatric Psychiatric: Denies depression Endocrine Endocrinology: Denies fatigue Allergic/Immunologic Allergic/Immunologic ED: Denies urticaria EXAM Physical Exam Const Vital Signs: 06/08/21 19:58 06/08/21 21:30 06/08/21 21:39 Temperature 99.3 F H Temperature Source Temporal Pulse Rate 78 Respiratory Rate 22 H Blood Pressure 141/66 H Blood Pressure Mean 91 Pulse Ox 93 90 96 Oxygen Delivery Method Room Air Room Air Nasal Cannula Oxygen Flow Rate (L/min) 2 Positive well nourished and well developed Constitutional Narrative: Patient is dyspneic, speaking in 3-5 word sentences General Appearance ED: well developed HEENT Reports dry mucous membranes Negative for trauma or tenderness Mouth ED: Yes dry mucous membranes Mouth: dry mucous membranes Eyes EOMs intact bilaterally Neck no lymphadenopathy, supple and no JVD Chest Wall inspection of chest normal Resp Resp Narrative: Lung sounds are clear. Patient has dyspnea with tachypnea respirations are in the mid to high 20s Cardio regular rhythm, no murmurs and peripheral pulses 2+ throughout Rate: tachycardic GI normal to inspection, nondistended, normoactive bowel sounds, non-tender and no masses Palpation: soft Back/Spine normal to inspection Extremity normal to inspection General Extremety ED: Negative for tenderness Neuro oriented x3 and no sensory deficits noted Sensorium / Orientation: alert Motor Exam: strength 5/5 throughout Psych mental status grossly normal Skin no rashes or lesions noted MDM MDM MDM Narrative Medical decision making narrative: Patient presenting secondary to complications of coronavirus. Patient's room air pulse ox was at 90% at rest and he was significantly tachypneic in the mid to high 20s he was placed on supplemental oxygen. CBC demonstrates hemoglobin at 16.7 with characteristic lymphocyte suppression. Chemistry shows the patient to be dehydrated with a creatinine of 1.7 BUN at 43 no significant electrolyte derangements were noted. Procalcitonin modestly elevated at 0.27. CRP elevated at 60. Chest x-ray by my personal review demonstrates bilateral infiltrates. Patient was given IV fluids given his clinical and laboratory dehydration. He was given Decadron. I do believe that the patient requires admission. I did obtain a D-dimer on the patient's that is pending at this time. Should it be positive then will be taken into account, but I do not feel that the patient can receive CT angiogram until he is adequately fluid resuscitated as he does have acute kidney injury. Patient will be admitted for further treatment of coronavirus. Lab Data Labs: Laboratory Results - last 24 hr 06/08/21 06/08/21 06/08/21 21:07 21:07 21:07 WBC 6.1 RBC 5.71 Hgb 16.7 H Hct 49.4 MCV 86.5 MCH 29.2 MCHC 33.8 RDW Std Deviation 43.0 RDW Coeff of Bijan 13.6 Plt Count 110 L MPV 11.4 Immature Gran % (Auto) 0.300 Neut % (Auto) 85.2 H Lymph % (Auto) 8.7 L Teller % (Auto) 5.6 Eos % (Auto) 0.0 Baso % (Auto) 0.2 Absolute Neuts (auto) 5.2 Absolute Lymphs (auto) 0.53 L Nucleated RBC % 0 Differential Comment SEE COMMENT Platelet Estimate MOD DEC RBC Morphology N CHROM Anisocytosis RARE D-Dimer Quant (PE/DVT) Sodium 131 L Potassium 3.9 Chloride 96 L Carbon Dioxide 24.0 Anion Gap 11 BUN 43 H Creatinine 1.70 H Estim Creat Clear Calc 33.48 Est GFR (MDRD) Af Amer 50 L Est GFR (MDRD) Non-Af 42 L BUN/Creatinine Ratio 25.3 H Glucose 141 H Calcium 8.7 C-React Prot Ext Range Procalcitonin 0.27 H 06/08/21 06/08/21 21:07 21:07 WBC RBC Hgb Hct MCV MCH MCHC RDW Std Deviation RDW Coeff of Bijan Plt Count MPV Immature Gran % (Auto) Neut % (Auto) Lymph % (Auto) Teller % (Auto) Eos % (Auto) Baso % (Auto) Absolute Neuts (auto) Absolute Lymphs (auto) Nucleated RBC % Differential Comment Platelet Estimate RBC Morphology Anisocytosis D-Dimer Quant (PE/DVT) Cancelled Sodium Potassium Chloride Carbon Dioxide Anion Gap BUN Creatinine Estim Creat Clear Calc Est GFR (MDRD) Af Amer Est GFR (MDRD) Non-Af BUN/Creatinine Ratio Glucose Calcium C-React Prot Ext Range 60.50 H Procalcitonin Radiography Chest X-Ray - ED: 1 View, Read by ED Physician, Right Infiltrate and Left Infiltrate Diagnostic Testing: Radiology Impression Chest X-Ray 06/08/21 21:27 IMPRESSION: Bilateral patchy opacities concerning for multifocal pneumonia. Electronically Signed: Amy Lopez MD at 22:26 EDT Tel , Service support , Discharge Plan Triage Chief Complaint: Cough Other Complaint: Weakness ED Provider: Nadeem Blackman Dx/Rx/DC Orders Clinical Impression: COVID-19, Dehydration, Hypoxia Prescriptions: No Action losartan 50 MG tablet 50 mg PO BID RF: 0 celecoxib 200 MG capsule 200 mg PO DAILY RF: 0 atorvastatin 20 MG tablet 20 mg PO QHS RF: 0 diltiazem HCl 240 MG capsule,extended release 24hr 240 mg PO DAILY RF: 0 magnesium oxide 400 MG tablet 400 mg PO DAILY RF: 0 esomeprazole magnesium 40 MG capsule 40 mg PO DAILY RF: 0 hydrochlorothiazide 25 MG tablet 25 mg PO DAILY RF: 0 albuterol sulfate 1 INHALER inhaler 2 puff inhalation Q4H PRN PRN (Reason: Asthma) RF: 0 psyllium husk (aspartame) 1 PACKET packet 1 packet PO DAILY RF: 0 mrddjsrl-rhj-XA-lycopen-lutein 1 EACH tablet 1 ea PO DAILY RF: 0 sennosides-docusate sodium 1 TABLET tablet 2 tab PO BID Qty: 10 RF: 0 acetaminophen 500 MG tablet 1,000 mg PO Q8 Qty: 100 RF: 0 doxycycline monohydrate 100 MG capsule 100 mg PO BID Qty: 12 RF: 0 aspirin 81 MG tablet,chewable 81 mg PO BIDCM Qty: 60 RF: 0 Primary Care Provider: Juancarlos Daley Referrals: Juancarlos Daley MD [Primary Care Provider] - Disposition Disposition: Acute Care [facility]
--- NOTE | 2021-06-08 23:36 | HP.PCM.HOS_ITS ---
HPI - General General Date of Admission: 06/08/21 HPI Narrative CECILIA HOLDER, is a 76 M with a significant history of hypertension; former smoker and asthma who presents to emergency department with a 4-day history of progressively worsening shortness of breath. Patient tested positive for vigil virus about 4 days ago. Associated with his symptom is some diarrhea; productive cough of clear sputum; fatigue; myalgias severe fever. Further he reports anorexia. He denies any dysgeusia or anosmia PFSH Home Medications albuterol sulfate 2 puff INHALATION Q4H PRN PRN 06/27/19 [History Last Taken Unknown] atorvastatin 20 mg PO QHS 06/27/19 [History Last Taken Unknown] celecoxib 200 mg PO DAILY 06/27/19 [History Last Taken Unknown] diltiazem HCl 240 mg PO DAILY 06/27/19 [History Last Taken Unknown] esomeprazole magnesium 40 mg PO DAILY 06/27/19 [History Last Taken Unknown] hydrochlorothiazide 25 mg PO DAILY 06/27/19 [History Last Taken Unknown] losartan 50 mg PO BID 06/27/19 [History Last Taken 07/10/19] magnesium oxide 400 mg PO DAILY 06/27/19 [History Last Taken Unknown] klunapjn-ahy-QJ-lycopen-lutein 1 ea PO DAILY 06/27/19 [History Last Taken Unknown] psyllium husk (aspartame) 1 packet PO DAILY 06/27/19 [History Last Taken Unknown] acetaminophen 1,000 mg PO Q8 #100 tab 07/11/19 [Rx Last Taken Unknown] aspirin 81 mg PO BIDCM #60 tab 07/11/19 [Rx Last Taken Unknown] sennosides-docusate sodium 2 tab PO BID #10 tab 07/11/19 [Rx Last Taken Unknown] Allergy/AdvReac Type Severity Reaction Status Date / Time No Known Allergies Allergy Verified 06/08/21 19:58 Family History (Updated 06/08/21 @ 23:[address] Peña Walters MD) Other Cancer Christel Gehrig's disease Surgical History H/O knee surgery History of back surgery History of hip surgery Social History Smoking Status: Former smoker ROS ROS Narrative Constitutional: Reports anorexia. Denies change in weight Eyes: Denies blurry vision, change in eye color, change in vision, discharge from eye(s), double vision, erythema, eye pain, loss of vision or other HEENT: Denies abnormal hearing, dysphagia, ear pain, epistaxis, headache(s), hearing loss, nasal congestion, nasal discharge, post nasal drip, sinus pressure, sore throat or other Cardiovascular: Denies chest pain or palpitations. Respiratory/Chest: Reports productive cough. Reports shortness of breath. Denies wheezes. Gastrointestinal: Reports diarrhea. Denies abdominal pain, coffee ground emesis, constipation, dyspepsia, hematemesis, hematochezia, loose stools, melena, nausea, vomiting or other Genitourinary: Denies burning urination, difficulty urinating, dysuria, hematuria, nocturia, urinary frequency, urinary hesitancy, urinary incontinence, urinary urgency or other Musculoskeletal: Denies arthralgias. Reports back pain. Neurologic: Denies abnormal gait, abnormal speech, confusion, disequilibrium, dizziness, focal weakness, headache(s), numbness, paresthesias, seizure-like activity, seizures, syncope, tingling, tremor(s) or other Psychiatric: Denies anxiety, depression, homicidal ideation, suicidal ideation or other Endocrinology: Denies change in body appearance, cold intolerance, excessive sweating, heat intolerance, polydipsia, polyuria or other Hematologic/Lymphatic: Denies anemia, easy bleeding, easy bruising, lymphadenopathy or other Integumentary: Denies rashes Allergic/Immunologic: Denies rhinitis, hives, eczema, or other Vital Signs Vital Signs Vital Signs: 06/08/21 19:58 06/08/21 21:30 06/08/21 21:39 Temperature 99.3 F H Temperature Source Temporal Pulse Rate 78 Respiratory Rate 22 H Blood Pressure 141/66 H Blood Pressure Mean 91 Pulse Ox 93 90 96 Oxygen Delivery Method Room Air Room Air Nasal Cannula Oxygen Flow Rate (L/min) 2 Weight Weight: 106.594 kg Body Mass Index (BMI) 36.8 Physical Exam Narrative Physical exam: General: Well-nourished, well-developed. Head: Normocephalic, atraumatic, no tenderness Eyes: PERRLA, EOMI ENT, no trauma, moist mucous membranes, no rhinorrhea Neck: Nontender, full range of motion, no spinal tenderness, deformities, step- off CVS: Tachycardia. S1-S2 present. No murmur, gallop or rub. Respiratory : Rales. chest wall nontender, no wheezing Abdomen: Soft, nontender, nondistended, normal bowel sounds, no masses : Deferred Back: Nontender, no CVA tenderness, no midline spinal tenderness, deformities, step-offs Extremities: Nontender full range of motion, no trauma Skin: Normal color, no trauma, abrasions Neuro: Alert, oriented, cranial nerves II through XII grossly intact. Psychiatry: Normal mood. Normal affect. Not depressed. Not anxious. Results Lab / Micro Data Result Diagrams: 06/08/21 21:07 06/08/21 21:07 Labs: Laboratory Results - last 24 hr 06/08/21 21:07: WBC 6.1, RBC 5.71, Hgb 16.7 H, Hct 49.4, MCV 86.5, MCH 29.2, MCHC 33.8, RDW Std Deviation 43.0, RDW Coeff of Bijan 13.6, Plt Count 110 L, MPV 11.4, Immature Gran % (Auto) 0.300, Neut % (Auto) 85.2 H, Lymph % (Auto) 8.7 L, [place] % (Auto) 5.6, Eos % (Auto) 0.0, Baso % (Auto) 0.2, Absolute Neuts (auto) 5.2, Absolute Lymphs (auto) 0.53 L, Nucleated RBC % 0, Differential Comment SEE COMMENT, Platelet Estimate MOD DEC, RBC Morphology N CHROM, Anisocytosis RARE 06/08/21 21:07: Sodium 131 L, Potassium 3.9, Chloride 96 L, Carbon Dioxide 24.0, Anion Gap 11, BUN 43 H, Creatinine 1.70 H, Estim Creat Clear Calc 33.48, Est GFR (MDRD) Af Amer 50 L, Est GFR (MDRD) Non-Af 42 L, BUN/Creatinine Ratio 25.3 H, G lucose 141 H, Calcium 8.7 06/08/21 21:07: Procalcitonin 0.27 H 06/08/21 21:07: D-Dimer Quant (PE/DVT) Cancelled 06/08/21 21:07: C-React Prot Ext Range 60.50 H 06/08/21 22:35: D-Dimer Quant (PE/DVT) 0.78 H* Radiology Impression Chest X-Ray 06/08/21 21:27 IMPRESSION: Bilateral patchy opacities concerning for multifocal pneumonia. Electronically Signed: Amy Lopez MD at 22:26 EDT Tel , Service support , Assessment & Plan Assessment/Plan (1) COVID-19: (2) Severe acute respiratory syndrome: (3) Dehydration: (4) TRANG (acute kidney injury): PLAN: Acute hypoxemic respiratory failure secondary to SARS- COV 2 Review of community records shows that on 06/04/2021 patient had a Covid PCR test with the [facility] which was positive. Patient required supplemental oxygen at the emergency department his and even with that 93%. Patient with oxygen saturation was respiratory rate; and using accessory muscles of respiration.her oxygen saturation was []% on room air at the emergency department. Oxygen supplementation continued. Impression of chest x-ray by radiologist: Bilateral patchy opacities concerning for multifocal pneumonia. Actual chest x-ray image was independently interpreted. I agree with radiologist interpretation. Dimer was elevated compensated for age is just normal. Procalcitonin is insignificant. Received dexamethasone IV at emergency department. Decadron 6 mg p.o. daily ordered while inpatient. Liver enzymes is elevated but is no more than 10% upper limit. Will initiate remdesivir. If liver enzymes continue to rise consider discontinuing remdesivir. Tylenol for fever and pain. Tessalon Perles as needed ordered. TRANG on chronic kidney disease stage IIIa/dehydration CKD like secondary to hypertensive nephrosclerosis. Baseline creatinine of 1.2. Creatinine on admission was 1.7. BUN is 43. BUN/creatinine is 25.3. Likely prerenal. Started on normal saline 150 mL's per hour limiting department. Because of likely risk of the decompensation with IV fluids normal saline the escalated to 60 mL's per hour. Trend CMP. Avoid nephrotoxins. Hypertension Blood pressure is stable in regard to his age Continue home blood pressure medications. Trend blood pressure and adjust blood pressure medications. DVT prophylaxis: Subcutaneous Lovenox twice daily per Covid protocol ordered. Charges/Coding Visit Charges Inpatient E&M: 25320 Init Hosp L3
[2021-06-08 23:54] VITALS: BP 138/74; PULSE 112; RESP 34; TEMP 36.6; O2SAT 93
[2021-06-08 23:59] LABS: AST(SGOT) 237 U/L (15-37); Alanine Aminotransfer ALT/SGPT 124 U/L (16-61); Albumin, Serum 3.2 g/dL (3.2-5.0); Alkaline Phosphatase 58 U/L (45-117); Bilirubin, Direct 0.13 mg/dL (0.00-0.30); Globulin 4.3 g/dL (2.2-4.2); Protein, Total 7.5 g/dL (6.4-8.2)
[2021-06-09] VITALS (8 sets, daily range): BP systolic 124–167; BP diastolic 63–90; PULSE 62–106; RESP 17–28; TEMP 36.7–38.7; O2SAT 90–95; BMI 37.8
--- NOTE | 2021-06-09 00:26 | PCS.PANDOC ---
PANDEMIC DOCUMENTATION INITIATED: Date: 05/10/2021 Time: 190
[2021-06-09] MEDS: 0.9% Normal Saline 1,000 ML 60 ML IV ×2 (01:16→19:39)
[2021-06-09] MEDS: 0.9% Saline Lock 10 ML Syringe IV (01:17)
[2021-06-09] MEDS: Acetaminophen 325 MG Tablet 650 MG PO ×2 (01:21→21:21)
[2021-06-09] MEDS: MELATONIN 3 MG TABLET PO ×2 (01:21→21:21)
[2021-06-09 06:52] LABS: Absolute Lymphocyte Count 0.47 X10^3/uL (0.83-4.51); Absolute Neutrophil Count 3.2 X10^3/uL (2.0-7.7); Hematocrit 48.2 % (40-54); Hemoglobin 16.1 g/dL (13.0-16.5); Lymphocyte # 0.47 X10^3/ul (0.83-4.51); Lymphocyte % 12.3 % (19-41); Mean Corp Hgb Conc 33.4 g/dL (32-36); Mean Corpuscular Hgb 29.2 pg (27.0-32.0); Mean Corpuscular Volume 87.3 fL (80-94); Monocyte# 0.17 X10^3/uL; Monocyte% 4.5 % (0-10); NRBC Flagged by Analyzer 0 % (0-5); Neutrophil # 3.17 X10^3/uL (2.7-7.7); Neutrophil % 82.9 % (47-70); POSITIVE COUNT YES; POSITIVE DIFFERENTIAL YES; Platelet Count 98 K/mm3 (150-450); RBC Distribution Width CV 13.7 % (11.6-14.6); RBC Distribution Width SD 44.2 fl (35.1-43.9); Red Blood Count 5.52 M/mm3 (4.6-6.2); White Blood Count 3.8 K/mm3 (4.4-11.0)
[2021-06-09 06:55] LABS: Differential Indicated SCAN CRITERIA MET
[2021-06-09 07:16] LABS: Differential Comment SCANNED; Platelet Estimate SLT DEC (ADEQ)
[2021-06-09 07:24] LABS: ALB/GLOB Ratio 0.7 RATIO (0.9-2.4); AST(SGOT) 211 U/L (15-37); Alanine Aminotransfer ALT/SGPT 119 U/L (16-61); Albumin, Serum 2.7 g/dL (3.2-5.0); Alkaline Phosphatase 53 U/L (45-117); Anion Gap 7 (5-15); BUN 34 mg/dL (7-18); BUN/Creat Ratio 24.1 RATIO (10-20); Calcium,Total 8.5 mg/dL (8.5-10.1); Chloride 102 mmol/L (98-107); Creatinine, Serum 1.41 mg/dL (0.70-1.30); EST Glomerular Filtration Rate 52 mL/min (>60); Est Glom Filt Rate - Afr Amer 63 mL/min (>60); Estimated Creatinine Clearance 40.37 ml/min; Globulin 3.9 g/dL (2.2-4.2); Glucose 169 mg/dL (74-106); Potassium 3.4 mmol/L (3.5-5.1); Protein, Total 6.6 g/dL (6.4-8.2); Sodium Level 137 mmol/L (136-145)
[2021-06-09] MEDS: dexAMETHasone 2 MG TABLET 6 MG PO (08:09)
[2021-06-09] MEDS: Enoxaparin 30 MG/0.3 ML Syringe SC ×2 (10:20→19:48)
--- NOTE | 2021-06-09 11:23 | CASEMGMT ---
ALINA AHN Assessment: Face to Face with pt for initial transition planning/care coordination assessment. ALINA AHN introduced self and role at [facility], pt voices understanding and consents to assessment. Pt is A/O x4 and answers all questions appropriately at this time. Pt lying in bed with O2 on in no distress. Care providers, pharmacy, and demographics verified/updated. Admitting Dx: SARS COV-2 PCP:Edi Specialists:Pt denies. Preferred Pharmacy: [facility] Insurance: Erick EWING Prescription Benefit: yes LW/HPOA: Pt has a LW/DPOA on file at [facility]. DPOA is Brina Carson. LNOK: Brina Byrd, ; Shavonne Cano, dtr Living Arrangements: Pt lives with in a story and a half house with 4 steps to enter without rail. Pt reports being I in ADL's and denies concerns at home. Transportation: Pt drives self and denies concerns with transportation. DME/HHC/SNF: Pt has a tub bench, walker and cane. Pt uses the cane all of the time. Pt denies previous HHC or SNF stays. Pt was tested at [facility] urgent care. He states his is also positive. Provided pt with a verbal list of local in network DME companies, pt chose [employer] should he need O2 upon dc. Pt states he has family who can provide him and his with groceries and supplies. Pt states no concerns with going home at time of dc. Pt states no further concerns/needs. CM to follow. Advised pt to ask CM if any further question/concerns/needs arise, voices understanding. Pt Goal: Home Plan: Home
--- NOTE | 2021-06-09 12:06 | CASEMGMT ---
Social Work Note Per resolution agent questions, pt has completed LW and provided document to [facility]. SW reviewed chart, LW is on file at [facility]. SW printed off document and placed on pt's chart. Pt stated that he has completed HCPOA but hasn't provided copy to [facility] and pt unable to bring in copy. Jany Ly DIRECTOR OF ENTERPRISE [employer]CHIT[employer]URE, CONTENT DIRECTOR
[2021-06-09 13:45] LABS: Pathologist Review Reviewed
--- NOTE | 2021-06-09 14:33 | PCM.PN.HOSP ---
Subjective Subjective Breathing better. Did not get vaccinated, because his daughter, who works for [employer], told him there was a better vaccine in the pipeline. Objective Data Objective Data Vital Signs: Vital Signs Temp Pulse Resp BP Pulse Ox 37.8 C H 84 18 124/63 H 94 06/09/21 11:55 06/09/21 11:55 06/09/21 11:55 06/09/21 11:55 06/09/21 11:55 Oxygen Flow Rate (L/min) 3.5 Oxygen Delivery Method Nasal Cannula Weight: 109.5 kg Body Mass Index (BMI) 37.8 Intake & Output: Intake and Output for Last 24 Hours 06/07/21 06/08/21 06/09/21 23:59 23:59 23:59 Intake Total 1000 / 1000 959 / 959 Balance 1000 / 1000 959 / 959 Medical Nutrition Assessment Dietitian: Malnutrition Criteria Met Start: 06/09/21 11:16 Freq: Status: Active Protocol: Document 06/09/21 11:16 RMA (Rec: 06/09/21 11:16 RMA [id number]) Nutrition Malnutrition Evidence of Malnutrition Exists Yes Malnutrition (severe): Acute Illness/Injury Evidenced By Suboptimal Energy Intake ( Severe),Weight Loss (Severe) Clinical Problem Acute Disease or Injury Related Malnutrition Etiology Severe pro/dakota malnutrition in the context of acute illness/ infection related to poor appetite and inability to take adequate PO nutrition Signs/Symptoms as evidenced by ~2% wt loss x past 5 days and PO meeting less than 50% estimated nutrition needs. Status Active Problem Recommendation Dietitian Recommendations/Changes Continue regular diet as ordered. Will add 120ml ensure enlive TID w/ meals. Adjust ONS as needed to optimize oral intake and prevent further wt loss. Lab / Micro Data Result Diagrams: 06/09/21 06:24 06/09/21 06:24 Labs: Laboratory Results - last 24 hr 06/08/21 21:07: WBC 6.1, RBC 5.71, Hgb 16.7 H, Hct 49.4, MCV 86.5, MCH 29.2, MCHC 33.8, RDW Std Deviation 43.0, RDW Coeff of Bijan 13.6, Plt Count 110 L, MPV 11.4, Immature Gran % (Auto) 0.300, Neut % (Auto) 85.2 H, Lymph % (Auto) 8.7 L, [place] % (Auto) 5.6, Eos % (Auto) 0.0, Baso % (Auto) 0.2, Absolute Neuts (auto) 5.2, Absolute Lymphs (auto) 0.53 L, Nucleated RBC % 0, Differential Comment SEE COMMENT, Platelet Estimate MOD DEC, RBC Morphology N CHROM, Anisocytosis RARE 06/08/21 21:07: Sodium 131 L, Potassium 3.9, Chloride 96 L, Carbon Dioxide 24.0, Anion Gap 11, BUN 43 H, Creatinine 1.70 H, Estim Creat Clear Calc 33.48, Est GFR (MDRD) Af Amer 50 L, Est GFR (MDRD) Non-Af 42 L, BUN/Creatinine Ratio 25.3 H, Glucose 141 H, Calcium 8.7 06/08/21 21:07: Procalcitonin 0.27 H 06/08/21 21:07: D-Dimer Quant (PE/DVT) Cancelled 06/08/21 21:07: C-React Prot Ext Range 60.50 H 06/08/21 21:07: Total Bilirubin 0.60, Direct Bilirubin 0.13, AST 237 H, ALT 124 H, Alkaline Phosphatase 58, Total Protein 7.5, Albumin 3.2, Globulin 4.3 H 06/08/21 22:35: D-Dimer Quant (PE/DVT) 0.78 H* 06/09/21 06:24: WBC 3.8 L, RBC 5.52, Hgb 16.1, Hct 48.2, MCV 87.3, MCH 29.2, MCHC 33.4, RDW Std Deviation 44.2 H, RDW Coeff of Bijan 13.7, Plt Count 98 L, MPV 11.0, Immature Gran % (Auto) 0.300, Neut % (Auto) 82.9 H, Lymph % (Auto) 12.3 L, [place] % (Auto) 4.5, Eos % (Auto) 0.0, Baso % (Auto) 0.0, Absolute Neuts (auto) 3.2, Absolute Lymphs (auto) 0.47 L, Nucleated RBC % 0, Differential Comment SCANNED, Diff Path Review Reviewed, Platelet Estimate SLT 06/09/21 06:24: Sodium 137, Potassium 3.4 L, Chloride 102, Carbon Dioxide 28.0, Anion Gap 7, BUN 34 H, Creatinine 1.41 H, Estim Creat Clear Calc 40.37, Est GFR (MDRD) Af Amer 63, Est GFR (MDRD) Non-Af 52 L, BUN/Creatinine Ratio 24.1 H, Glucose 169 H, Calcium 8.5, Total Bilirubin 0.30, AST 211 H, ALT 119 H, Alkaline Phosphatase 53, Total Protein 6.6, Albumin 2.7 L, Globulin 3.9, Albumin/Globulin Ratio 0.7 L Radiography Diagnostic Testing: Radiology Impression Chest X-Ray 06/08/21 21:27 IMPRESSION: Bilateral patchy opacities concerning for multifocal pneumonia. Electronically Signed: Amy Lopez MD at 22:26 EDT Tel , Service support , Physical Exam Const alert Resp normal respiratory effort, no retractions, no use of accessory muscles and clear to auscultation bilaterally Cardio regular rate, regular rhythm, S1 normal heart sound and S2 normal heart sound GI normal to inspection, nondistended, normoactive bowel sounds, soft to palpation, non-tender and non-distended Extremity normal to inspection Assessment & Plan Assessment/Plan (1) COVID-19: (2) Severe acute respiratory syndrome: PLAN: 1. Acute COVID-19 pneumonia Onset was 06/01/2021 On dexamethasone and remdesivir Unvaccinated claiming that he was waiting on a more ideal vaccine. Advised patient that he may overall do well but unclear as to the overall trajectory at this point 2. Elevated creatinine Admission creatinine was 1.7. Last available creatinine was from 2019 was 1.28 at that time. I cannot qualify this is acute kidney injury. Patient did receive IV fluids. Given the acute COVID-19 and 3. Acute hypoxic respiratory failure: No hypoxia was documented He did require up to 5 L nasal cannula. Currently down to 3.5. We will continue to monitor. Patient is demonstrating ongoing improvement could consider potential discharge in the near future. 4. VTE prophylaxis with enoxaparin 30 mg twice daily Charges/Coding Visit Charges Inpatient E&M: 12313 Subs Hosp L2
--- NOTE | 2021-06-09 19:36 | CON.PCM.ID_ITS ---
Assessment & Plan Assessment/Plan (1) COVID-19: PLAN: Sx started 05/31. Unvaccinated. On dex and remdesivir. Quarantine until 06/20, recommend vaccine after that point. Mildly elevated ALT. Will follow, thank you (2) Hypoxia: HPI Consult Data Date of Consult: 06/09/21 HPI Narrative HPI Narrative: CECILIA HOLDER, is a 76 M who presented 06/08 with sx starting 05/31. Him and sick at same time. Neither with vaccine. C/o headache, cough, aches, fever, chills. No change in taste and smell. Came to ED, admitted on dex/remdesivir. Not feeling much better yet. Full ROS performed and neg except as noted above. [facility] Medical History Asthma Former smoker Hypertension Sleep apnea Home Medications albuterol sulfate 2 puff INHALATION Q4H PRN PRN 06/27/19 [History Last Taken Unknown] atorvastatin 20 mg PO QHS 06/27/19 [History Last Taken Unknown] celecoxib 200 mg PO DAILY 06/27/19 [History Last Taken Unknown] diltiazem HCl 240 mg PO DAILY 06/27/19 [History Last Taken Unknown] esomeprazole magnesium 40 mg PO DAILY 06/27/19 [History Last Taken Unknown] hydrochlorothiazide 25 mg PO DAILY 06/27/19 [History Last Taken Unknown] losartan 50 mg PO BID 06/27/19 [History Last Taken 07/10/19] magnesium oxide 400 mg PO DAILY 06/27/19 [History Last Taken Unknown] tfkyuoqr-zdt-PV-lycopen-lutein 1 ea PO DAILY 06/27/19 [History Last Taken Unknown] psyllium husk (aspartame) 1 packet PO DAILY 06/27/19 [History Last Taken Unknown] aspirin 81 mg PO QHS 06/09/21 [History Last Taken Unknown] azelastine 1 spray INTRANASAL BID 06/09/21 [History Last Taken Unknown] tramadol 50 mg PO Q6H PRN PRN 06/09/21 [History Last Taken Unknown] Allergy/AdvReac Type Severity Reaction Status Date / Time No Known Allergies Allergy Verified 06/08/21 19:58 Family History (Updated 06/08/21 @ 23:[address] Peña Walters MD) Other Cancer Christel Gehrig's disease Surgical History H/O knee surgery History of back surgery History of hip surgery Social History Smoking Status: Former smoker Physical Exam Const alert and oriented x3 General Appearance: cooperative Exam Limitations: no limitations HEENT normocephalic and head/scalp atraumatic Eyes PERRL and EOMs intact bilaterally Neck supple and No nodes Resp Auscultation: diminished lung sounds Cardio regular rate and regular rhythm GI normal to inspection, nondistended, normoactive bowel sounds Extremity no clubbing, cyanosis or edema Skin no rashes or lesions noted Neuro CN's II-XII intact bilaterally Medical Records Data Medical Nutrition Assessment Dietitian: Malnutrition Criteria Met Start: 06/09/21 11:16 Freq: Status: Active Protocol: Document 06/09/21 11:16 RMA (Rec: 06/09/21 11:16 RMA [id number]) Nutrition Malnutrition Evidence of Malnutrition Exists Yes Malnutrition (severe): Acute Illness/Injury Evidenced By Suboptimal Energy Intake ( Severe),Weight Loss (Severe) Clinical Problem Acute Disease or Injury Related Malnutrition Etiology Severe pro/dakota malnutrition in the context of acute illness/ infection related to poor appetite and inability to take adequate PO nutrition Signs/Symptoms as evidenced by ~2% wt loss x past 5 days and PO meeting less than 50% estimated nutrition needs. Status Active Problem Recommendation Dietitian Recommendations/Changes Continue regular diet as ordered. Will add 120ml ensure enlive TID w/ meals. Adjust ONS as needed to optimize oral intake and prevent further wt loss. Lab / Micro Data Result Diagrams: 06/09/21 06:24 06/09/21 06:24 Labs: Laboratory Results - last 24 hr 06/08/21 21:07: WBC 6.1, RBC 5.71, Hgb 16.7 H, Hct 49.4, MCV 86.5, MCH 29.2, MCHC 33.8, RDW Std Deviation 43.0, RDW Coeff of Bijan 13.6, Plt Count 110 L, MPV 11.4, Immature Gran % (Auto) 0.300, Neut % (Auto) 85.2 H, Lymph % (Auto) 8.7 L, [place] % (Auto) 5.6, Eos % (Auto) 0.0, Baso % (Auto) 0.2, Absolute Neuts (auto) 5.2, Absolute Lymphs (auto) 0.53 L, Nucleated RBC % 0, Differential Comment SEE COMMENT, Platelet Estimate MOD DEC, RBC Morphology N CHROM, Anisocytosis RARE 06/08/21 21:07: Sodium 131 L, Potassium 3.9, Chloride 96 L, Carbon Dioxide 24.0, Anion Gap 11, BUN 43 H, Creatinine 1.70 H, Estim Creat Clear Calc 33.48, Est GFR (MDRD) Af Amer 50 L, Est GFR (MDRD) Non-Af 42 L, BUN/Creatinine Ratio 25.3 H, Glucose 141 H, Calcium 8.7 06/08/21 21:07: Procalcitonin 0.27 H 06/08/21 21:07: D-Dimer Quant (PE/DVT) Cancelled 06/08/21 21:07: C-React Prot Ext Range 60.50 H 06/08/21 21:07: Total Bilirubin 0.60, Direct Bilirubin 0.13, AST 237 H, ALT 124 H, Alkaline Phosphatase 58, Total Protein 7.5, Albumin 3.2, Globulin 4.3 H 06/08/21 22:35: D-Dimer Quant (PE/DVT) 0.78 H* 06/09/21 06:24: WBC 3.8 L, RBC 5.52, Hgb 16.1, Hct 48.2, MCV 87.3, MCH 29.2, MCHC 33.4, RDW Std Deviation 44.2 H, RDW Coeff of B[place] 13.7, Plt Count 98 L, MPV 11.0, Immature Gran % (Auto) 0.300, Neut % (Auto) 82.9 H, Lymph % (Auto) 12.3 L, [place] % (Auto) 4.5, Eos % (Auto) 0.0, Baso % (Auto) 0.0, Absolute Neuts (auto) 3.2, Absolute Lymphs (auto) 0.47 L, Nucleated RBC % 0, Differential Comment SCANNED, Diff Path Review Reviewed, Platelet Estimate SLT 06/09/21 06:24: Sodium 137, Potassium 3.4 L, Chloride 102, Carbon Dioxide 28.0, Anion Gap 7, BUN 34 H, Creatinine 1.41 H, Estim Creat Clear Calc 40.37, Est GFR (MDRD) Af Amer 63, Est GFR (MDRD) Non-Af 52 L, BUN/Creatinine Ratio 24.1 H, Glucose 169 H, Calcium 8.5, Total Bilirubin 0.30, AST 211 H, ALT 119 H, Alkaline Phosphatase 53, Total Protein 6.6, Albumin 2.7 L, Globulin 3.9, Albumin/Globulin Ratio 0.7 L Radiology Impression Chest X-Ray 06/08/21 21:27 IMPRESSION: Bilateral patchy opacities concerning for multifocal pneumonia. Electronically Signed: Amy Lopez MD at 22:26 EDT Tel , Service support ,
[2021-06-09] MEDS: Atorvastatin Calcium 20 MG Tablet PO (21:21)
[2021-06-09] MEDS: Aspirin 81 MG TAB.CHEW PO (21:21)
[2021-06-09] MEDS: Benzonatate 100 MG Capsule PO (21:21)
[2021-06-09] MEDS: dilTIAZem CD 240 MG Capsule PO (21:21)
[2021-06-10] VITALS (8 sets, daily range): BP systolic 119–133; BP diastolic 66–75; PULSE 62–74; RESP 16–20; TEMP 36.3–36.7; O2SAT 88–93
[2021-06-10 07:27] LABS: Hematocrit 46.8 % (40-54); Hemoglobin 15.5 g/dL (13.0-16.5); Mean Corp Hgb Conc 33.1 g/dL (32-36); Mean Corpuscular Hgb 29.5 pg (27.0-32.0); Mean Platelet Vol. 11.5 fl (6.2-12.0); Platelet Count 115 K/mm3 (150-450); RBC Distribution Width CV 13.8 % (11.6-14.6); RBC Distribution Width SD 45.2 fl (35.1-43.9); Red Blood Count 5.26 M/mm3 (4.6-6.2); White Blood Count 7.4 K/mm3 (4.4-11.0)
[2021-06-10 07:42] LABS: ALB/GLOB Ratio 0.7 RATIO (0.9-2.4); AST(SGOT) 158 U/L (15-37); Alanine Aminotransfer ALT/SGPT 102 U/L (16-61); Albumin, Serum 2.6 g/dL (3.2-5.0); Alkaline Phosphatase 47 U/L (45-117); Anion Gap 7 (5-15); BUN 32 mg/dL (7-18); BUN/Creat Ratio 28.8 RATIO (10-20); Calcium,Total 8.4 mg/dL (8.5-10.1); Chloride 107 mmol/L (98-107); Creatinine, Serum 1.11 mg/dL (0.70-1.30); EST Glomerular Filtration Rate 68 mL/min (>60); Est Glom Filt Rate - Afr Amer 82 mL/min (>60); Estimated Creatinine Clearance 51.28 ml/min; Globulin 3.6 g/dL (2.2-4.2); Glucose 150 mg/dL (74-106); Potassium 3.7 mmol/L (3.5-5.1); Protein, Total 6.2 g/dL (6.4-8.2); Sodium Level 143 mmol/L (136-145)
[2021-06-10] MEDS: dexAMETHasone 2 MG TABLET 6 MG PO (09:40)
[2021-06-10] MEDS: Enoxaparin 30 MG/0.3 ML Syringe SC (09:41)
[2021-06-10] MEDS: Magnesium Chloride 64 MG Delay Rel.Tablet 128 MG PO (09:41)
[2021-06-10] MEDS: Pantoprazole Sodium 40 MG Tablet PO (09:41)
[2021-06-10] MEDS: dilTIAZem CD 240 MG Capsule PO (09:41)
--- NOTE | 2021-06-10 14:08 | PN.HOSP_ITS ---
Subjective Subjective Feels better. Increased oxygen requirments. Objective Data Objective Data Vital Signs: Vital Signs Temp Pulse Resp BP Pulse Ox 36.3 C L 74 18 124/75 H 91 06/10/21 11:03 06/10/21 11:03 06/10/21 11:03 06/10/21 11:03 06/10/21 13:35 Oxygen Flow Rate (L/min) 6 Oxygen Delivery Method Nasal Cannula Weight: 109.5 kg Body Mass Index (BMI) 37.8 Intake & Output: Intake and Output for Last 24 Hours 06/08/21 06/09/21 06/10/21 23:59 23:59 23:59 Intake Total 1000 / 1000 2396 / 2396 300 / 300 Balance 1000 / 1000 2396 / 2396 300 / 300 Medical Nutrition Assessment Dietitian: Malnutrition Criteria Met Start: 06/09/21 11:16 Freq: Status: Active Protocol: Document 06/09/21 11:16 RMA (Rec: 06/09/21 11:16 RMA [id number]) Nutrition Malnutrition Evidence of Malnutrition Exists Yes Malnutrition (severe): Acute Illness/Injury Evidenced By Suboptimal Energy Intake ( Severe),Weight Loss (Severe) Clinical Problem Acute Disease or Injury Related Malnutrition Etiology Severe pro/dakota malnutrition in the context of acute illness/ infection related to poor appetite and inability to take adequate PO nutrition Signs/Symptoms as evidenced by ~2% wt loss x past 5 days and PO meeting less than 50% estimated nutrition needs. Status Active Problem Recommendation Dietitian Recommendations/Changes Continue regular diet as ordered. Will add 120ml ensure enlive TID w/ meals. Adjust ONS as needed to optimize oral intake and prevent further wt loss. Lab / Micro Data Result Diagrams: 06/10/21 06:35 06/10/21 06:35 Labs: Laboratory Results - last 24 hr 06/10/21 06:35: WBC 7.4, RBC 5.26, Hgb 15.5, Hct 46.8, MCV 89.0, MCH 29.5, MCHC 33.1, RDW Std Deviation 45.2 H, RDW Coeff of Bijan 13.8, Plt Count 115 L, MPV 11.5 06/10/21 06:35: Sodium 143, Potassium 3.7, Chloride 107, Carbon Dioxide 29.0, Anion Gap 7, BUN 32 H, Creatinine 1.11, Estim Creat Clear Calc 51.28, Est GFR (MDRD) Af Amer 82, Est GFR (MDRD) Non-Af 68, BUN/Creatinine Ratio 28.8 H, Glucose 150 H, Calcium 8.4 L, Total Bilirubin 0.40, AST 158 H, ALT 102 H, Alkaline Phosphatase 47, Total Protein 6.2 L, Albumin 2.6 L, Globulin 3.6, Alb umin/Globulin Ratio 0.7 L Physical Exam Const alert Resp normal respiratory effort, no retractions, no use of accessory muscles and clear to auscultation bilaterally Cardio regular rate, regular rhythm, S1 normal heart sound and S2 normal heart sound GI normal to inspection, nondistended, normoactive bowel sounds, soft to palpation, non-tender and non-distended Extremity General Extremity: edema Assessment & Plan Assessment/Plan (1) COVID-19: (2) Severe acute respiratory syndrome: PLAN: 1. Acute COVID-19 pneumonia Onset was 06/01/2021 On dexamethasone and remdesivir Unvaccinated claiming that he was waiting on a more ideal vaccine. Advised patient that he may overall do well but unclear as to the overall traj ectory at this point 2. Elevated creatinine Admission creatinine was 1.7. Last available creatinine was from 2019 was 1.28 at that time. I cannot qualify this is acute kidney injury. Patient did receive IV fluids. Given the acute COVID-19 and 3. Acute hypoxic respiratory failure: No hypoxia was documented Now up to 6 liters Incentive spirometer. 4. VTE prophylaxis with enoxaparin 30 mg twice daily Charges/Coding Visit Charges Inpatient E&M: 67677 Subs Hosp L2
--- NOTE | 2021-06-10 14:22 | NURSING ---
Gave pt I.S and explained importance of using it and how to use it. Pt using I.S at this time then this nurse will prone pt in bed. Pt was agreeable to laying prone.
[2021-06-10] MEDS: Furosemide 40 MG/4 ML Vial IV (18:16)
[2021-06-10] MEDS: 0.9% Saline Lock 10 ML Syringe IV (18:17)
--- NOTE | 2021-06-10 19:49 | NURSING ---
Pt did not like laying prone. I wont do that again. Pt states he is refusing to lay like that again because it hurt all my joints. Pt asked What is the next step after this Pt was pointing to his highflow oxygen. This nurse talked about Airvo and then poss a bipap machine. Pt stopped me talking any further and said he would not tolerate Bipap and would never do Bipap. Then precedded to tell me that his obituary is done and plots are picked out.
[2021-06-11] VITALS (11 sets, daily range): BP systolic 115–155; BP diastolic 62–89; PULSE 62–82; RESP 18–32; TEMP 36.1–36.8; O2SAT 88–94
[2021-06-11] MEDS: Aspirin 81 MG TAB.CHEW PO ×2 (00:25→23:03)
[2021-06-11] MEDS: Enoxaparin 30 MG/0.3 ML Syringe SC ×3 (00:25→23:03)
[2021-06-11] MEDS: Atorvastatin Calcium 20 MG Tablet PO ×2 (00:25→23:03)
[2021-06-11] MEDS: 0.9% Saline Lock 10 ML Syringe IV ×3 (00:26→23:13)
[2021-06-11 06:28] LABS: Hematocrit 47.5 % (40-54); Hemoglobin 15.8 g/dL (13.0-16.5); Mean Corp Hgb Conc 33.3 g/dL (32-36); Mean Corpuscular Hgb 29.3 pg (27.0-32.0); Mean Platelet Vol. 10.9 fl (6.2-12.0); Platelet Count 144 K/mm3 (150-450); RBC Distribution Width CV 13.7 % (11.6-14.6); RBC Distribution Width SD 44.2 fl (35.1-43.9); White Blood Count 7.9 K/mm3 (4.4-11.0)
[2021-06-11 06:45] LABS: ALB/GLOB Ratio 0.7 RATIO (0.9-2.4); AST(SGOT) 133 U/L (15-37); Alanine Aminotransfer ALT/SGPT 95 U/L (16-61); Albumin, Serum 2.6 g/dL (3.2-5.0); Alkaline Phosphatase 48 U/L (45-117); Anion Gap 9 (5-15); BUN 37 mg/dL (7-18); BUN/Creat Ratio 33.6 RATIO (10-20); Calcium,Total 8.5 mg/dL (8.5-10.1); Chloride 106 mmol/L (98-107); EST Glomerular Filtration Rate 69 mL/min (>60); Est Glom Filt Rate - Afr Amer 83 mL/min (>60); Estimated Creatinine Clearance 51.74 ml/min; Globulin 3.7 g/dL (2.2-4.2); Glucose 154 mg/dL (74-106); Protein, Total 6.3 g/dL (6.4-8.2); Sodium Level 143 mmol/L (136-145)
[2021-06-11] MEDS: dexAMETHasone 2 MG TABLET 6 MG PO (11:06)
[2021-06-11] MEDS: Furosemide 40 MG/4 ML Vial IV ×2 (11:06→18:37)
[2021-06-11] MEDS: dilTIAZem CD 240 MG Capsule PO (11:06)
[2021-06-11] MEDS: Pantoprazole Sodium 40 MG Tablet PO (11:07)
[2021-06-11] MEDS: Magnesium Chloride 64 MG Delay Rel.Tablet 128 MG PO (11:07)
--- NOTE | 2021-06-11 15:22 | PN.HOSP_ITS ---
Subjective Subjective increased oxygen requirements. His is now admitted with COVID 19. Objective Data Objective Data Vital Signs: Vital Signs Temp Pulse Resp BP Pulse Ox 36.1 C L 79 32 H 137/89 H 88 06/11/21 11:03 06/11/21 11:03 06/11/21 11:03 06/11/21 11:03 06/11/21 11:03 Oxygen Flow Rate (L/min) 15 Oxygen Delivery Method Nasal Cannula Weight: 109.5 kg Body Mass Index (BMI) 37.8 Intake & Output: Intake and Output for Last 24 Hours 06/09/21 06/10/21 06/11/21 23:59 23:59 23:59 Intake Total 2396 / 2396 400 / 400 610 / 610 Balance 2396 / 2396 400 / 400 610 / 610 Medical Nutrition Assessment Dietitian: Malnutrition Criteria Met Start: 06/09/21 11:16 Freq: Status: Active Protocol: Document 06/09/21 11:16 RMA (Rec: 06/09/21 11:16 RMA [id number]) Nutrition Malnutrition Evidence of Malnutrition Exists Yes Malnutrition (severe): Acute Illness/Injury Evidenced By Suboptimal Energy Intake ( Severe),Weight Loss (Severe) Clinical Problem Acute Disease or Injury Related Malnutrition Etiology Severe pro/dakota malnutrition in the context of acute illness/ infection related to poor appetite and inability to take adequate PO nutrition Signs/Symptoms as evidenced by ~2% wt loss x past 5 days and PO meeting less than 50% estimated nutrition needs. Status Active Problem Recommendation Dietitian Recommendations/Changes Continue regular diet as ordered. Will add 120ml ensure enlive TID w/ meals. Adjust ONS as needed to optimize oral intake and prevent further wt loss. Lab / Micro Data Result Diagrams: 06/11/21 06:05 06/11/21 06:05 Labs: Laboratory Results - last 24 hr 06/11/21 06:05: WBC 7.9, RBC 5.40, Hgb 15.8, Hct 47.5, MCV 88.0, MCH 29.3, MCHC 33.3, RDW Std Deviation 44.2 H, RDW Coeff of Bijan 13.7, Plt Count 144 L, MPV 10.9 06/11/21 06:05: Sodium 143, Potassium 4.0, Chloride 106, Carbon Dioxide 28.0, Anion Gap 9, BUN 37 H, Creatinine 1.10, Estim Creat Clear Calc 51.74, Est GFR (MDRD) Af Amer 83, Est GFR (MDRD) Non-Af 69, BUN/Creatinine Ratio 33.6 H, Glucose 154 H, Calcium 8.5, Total Bilirubin 0.50, AST 133 H, ALT 95 H, Alkaline Phosphatase 48, Total Protein 6.3 L, Albumin 2.6 L, Globulin 3.7, Album in/Globulin Ratio 0.7 L Physical Exam Const alert Resp normal respiratory effort, no retractions and no use of accessory muscles Cardio regular rate, regular rhythm, S1 normal heart sound and S2 normal heart sound GI normal to inspection, nondistended, normoactive bowel sounds, soft to palpation, non-tender and non-distended Assessment & Plan Assessment/Plan (1) COVID-19: (2) Severe acute respiratory syndrome: PLAN: 1. Acute COVID-19 pneumonia Onset was 06/01/2021 On dexamethasone and remdesivir Unvaccinated claiming that he was waiting on a more ideal vaccine. ongoing 2. Elevated creatinine Resolved Admission creatinine was 1.7. Last available creatinine was from 2019 was 1.28 at that time. I cannot qualify this is acute kidney injury. Patient did rec eive IV fluids. Given the acute COVID-19 and 3. Acute hypoxic respiratory failure: No hypoxia was documented Worsening non-15 L. 88%. Since patient is no intubation and plan would be to placement to air Vo. 4. VTE prophylaxis with enoxaparin 30 mg twice daily Charges/Coding Visit Charges Inpatient E&M: 11111 Subs Hosp L2
--- NOTE | 2021-06-11 15:53 | PCM.PN.ID ---
Physical Exam Narrative Worsened hypoxia since yesterday afternoon. No fever. Feeling ok overall. Const alert General Appearance: cooperative Resp Auscultation: diminished lung sounds Cardio regular rate and regular rhythm GI normal to inspection, nondistended, normoactive bowel sounds Skin no rashes or lesions noted ID ID: Route of nutrition/ use of supplements: [] Nutritional Intake: [] IV Site: [] Holcomb Catheter: [] Assessment & Plan Assessment/Plan (1) COVID-19: PLAN: Sx started 05/31. Unvaccinated. On dex and remdesivir. Quarantine until 06/20, recommend vaccine after that point. Mildly elevated ALT. Worsened O2. Reviewed EUA and risks/benefits with him, will start baricitinib. He does not want intubated. Will consult pulm. Will follow (2) Hypoxia:
--- NOTE | 2021-06-11 18:48 | NURSING ---
Pt did not want to take Baricitinib without talking to Dr. Talley first despite this nurse reading over and giving the fact sheet to him.
[2021-06-11] MEDS: MELATONIN 3 MG TABLET PO (23:03)
[2021-06-12] VITALS (29 sets, daily range): BP systolic 119–148; BP diastolic 83–94; PULSE 58–85; RESP 12–31; TEMP 36–37.1; O2SAT 85–98
--- NOTE | 2021-06-12 02:22 | NURSING ---
0215 Patient is maxed on Airvo.
[2021-06-12 07:12] LABS: Absolute Lymphocyte Count 0.61 X10^3/uL (0.83-4.51); Absolute Neutrophil Count 5.9 X10^3/uL (2.0-7.7); Basophil# 0.01 X10^3/uL; Basophil% 0.1 % (0-1); Hematocrit 48.5 % (40-54); Hemoglobin 16.3 g/dL (13.0-16.5); Lymphocyte # 0.61 X10^3/ul (0.83-4.51); Lymphocyte % 8.4 % (19-41); Mean Corp Hgb Conc 33.6 g/dL (32-36); Mean Corpuscular Volume 86.3 fL (80-94); Mean Platelet Vol. 11.2 fl (6.2-12.0); Monocyte# 0.72 X10^3/uL; NRBC Flagged by Analyzer 0 % (0-5); Neutrophil # 5.86 X10^3/uL (2.7-7.7); Neutrophil % 81.1 % (47-70); POSITIVE MORPHOLOGY YES; Platelet Count 151 K/mm3 (150-450); RBC Distribution Width CV 13.5 % (11.6-14.6); RBC Distribution Width SD 42.7 fl (35.1-43.9); Red Blood Count 5.62 M/mm3 (4.6-6.2); White Blood Count 7.2 K/mm3 (4.4-11.0)
[2021-06-12 07:20] LABS: Differential Indicated SCAN CRITERIA MET
[2021-06-12 07:36] LABS: ALB/GLOB Ratio 0.7 RATIO (0.9-2.4); AST(SGOT) 109 U/L (15-37); Alanine Aminotransfer ALT/SGPT 95 U/L (16-61); Albumin, Serum 2.5 g/dL (3.2-5.0); Alkaline Phosphatase 50 U/L (45-117); Anion Gap 8 (5-15); BUN 39 mg/dL (7-18); BUN/Creat Ratio 39.5 RATIO (10-20); Calcium,Total 8.4 mg/dL (8.5-10.1); Chloride 104 mmol/L (98-107); Creatinine, Serum 0.99 mg/dL (0.70-1.30); EST Glomerular Filtration Rate 78 mL/min (>60); Est Glom Filt Rate - Afr Amer 94 mL/min (>60); Estimated Creatinine Clearance 57.49 ml/min; Globulin 3.8 g/dL (2.2-4.2); Glucose 166 mg/dL (74-106); Potassium 3.5 mmol/L (3.5-5.1); Protein, Total 6.3 g/dL (6.4-8.2); Sodium Level 140 mmol/L (136-145)
[2021-06-12 07:41] LABS: Differential Comment SCANNED
--- NOTE | 2021-06-12 09:48 | CPS ---
Attempted break from bipap to airvo at 50L and 90%, patients sat's dropped to low 80's%. Bipap put back on patient and fio2 increased to 85%, patients sat's recovered to 91%.
--- NOTE | 2021-06-12 09:56 | PN.HOSP_ITS ---
Subjective Subjective Increased oxygen demands. Was on Aivo, but had to be switched to BIPAP. Oxygenation improved upon initiation of BiPAP. Objective Data Objective Data Vital Signs: Vital Signs Temp Pulse Resp BP Pulse Ox 36.0 C L 58 L 31 H 148/93 H 91 06/12/21 03:35 06/12/21 07:30 06/12/21 07:30 06/12/21 03:35 06/12/21 09:21 Oxygen Flow Rate (L/min) 55 Oxygen Delivery Method Bi-pap Weight: 109.5 kg Body Mass Index (BMI) 37.8 Intake & Output: Intake and Output for Last 24 Hours 06/10/21 06/11/21 06/12/21 23:59 23:59 23:59 Intake Total 400 / 400 730 / 730 450 / 450 Output Total 800 / 800 900 / 900 Balance 400 / 400 -70 / -70 -450 / -450 Medical Nutrition Assessment Dietitian: Malnutrition Criteria Met Start: 06/09/21 11:16 Freq: Status: Active Protocol: Document 06/09/21 11:16 RMA (Rec: 06/09/21 11:16 RMA [id number]) Nutrition Malnutrition Evidence of Malnutrition Exists Yes Malnutrition (severe): Acute Illness/Injury Evidenced By Suboptimal Energy Intake ( Severe),Weight Loss (Severe) Clinical Problem Acute Disease or Injury Related Malnutrition Etiology Severe pro/dakota malnutrition in the context of acute illness/ infection related to poor appetite and inability to take adequate PO nutrition Signs/Symptoms as evidenced by ~2% wt loss x past 5 days and PO meeting less than 50% estimated nutrition needs. Status Active Problem Recommendation Dietitian Recommendations/Changes Continue regular diet as ordered. Will add 120ml ensure enlive TID w/ meals. Adjust ONS as needed to optimize oral intake and prevent further wt loss. Lab / Micro Data Result Diagrams: 06/12/21 06:31 06/12/21 06:31 Labs: Laboratory Results - last 24 hr 06/12/21 06:31: WBC 7.2, RBC 5.62, Hgb 16.3, Hct 48.5, MCV 86.3, MCH 29.0, MCHC 33.6, RDW Std Deviation 42.7, RDW Coeff of Bijan 13.5, Plt Count 151, MPV 11.2, Immature Gran % (Auto) 0.400, Neut % (Auto) 81.1 H, Lymph % (Auto) 8.4 L, Angelina % (Auto) 10.0, Eos % (Auto) 0.0, Baso % (Auto) 0.1, Absolute Neuts (auto) 5.9, Absolute Lymphs (auto) 0.61 L, Nucleated RBC % 0, Differential Comment SCANNED 06/12/21 06:31: Sodium 140, Potassium 3.5, Chloride 104, Carbon Dioxide 28.0, Anion Gap 8, BUN 39 H, Creatinine 0.99, Estim Creat Clear Calc 57.49, Est GFR (MDRD) Af Amer 94, Est GFR (MDRD) Non-Af 78, BUN/Creatinine Ratio 39.5 H, Glucose 166 H, Calcium 8.4 L, Total Bilirubin 0.60, AST 109 H, ALT 95 H, Alkaline Phosphatase 50, Total Protein 6.3 L, Albumin 2.5 L, Globulin 3.8, Albumin/Globulin Ratio 0.7 L Physical Exam Const alert Constitutional Narrative: on BiPAP. Resp no use of accessory muscles Resp Narrative: coarse breath sounds bilaterally. Cardio regular rate, regular rhythm, S1 normal heart sound and S2 normal heart sound GI normal to inspection, nondistended, normoactive bowel sounds, soft to palpation, non-tender and non-distended Extremity normal to inspection Assessment & Plan Assessment/Plan (1) COVID-19: (2) Severe acute respiratory syndrome: PLAN: 1. Acute COVID-19 pneumonia Onset was 06/01/2021 On dexamethasone and remdesivir and barcitinib Unvaccinated claiming that he was waiting on a more ideal vaccine. ongoing 2. Elevated creatinine Resolved Admission creatinine was 1.7. Last available creatinine was from 2019 was 1.28 at that time. I cannot qualify this is acute kidney injury. Patient did receive IV fluids. 3. Acute hypoxic respiratory failure: Worsening, now on BiPAP Change to therapeutic enoxaparin Continue furosemide 4. VTE prophylaxis not indicated with current anticoagulation 5. Code status: Pt was previously DNRCCA, DNI. Informed that if he decompensates with BiPAP, then I would recommend hospice. He then asked what was involved with intubation, which was explained to him. He now wants to intubated, if necessary. I told him he does not require it at this time. He now would want CPR in the event of cardiac arrest. Therefore, pt is now full code. He asked me to call his and update, which I did. Will transfer pt to ICU as I anticipate that he may require intubation in the near future. Electronic Resources Librarian notified. Greater than 35 minutes of which greater than time was discussing with the patient about intubation, BiPAP as well as CODE STATUS. Charges/Coding Visit Charges Inpatient E&M: 44331 Subs Hosp L3
[2021-06-12] MEDS: dexAMETHasone 2 MG TABLET 6 MG PO (10:07)
[2021-06-12] MEDS: dilTIAZem CD 240 MG Capsule PO (10:07)
[2021-06-12] MEDS: Furosemide 40 MG/4 ML Vial IV ×2 (10:08→17:24)
[2021-06-12] MEDS: 0.9% Saline Lock 10 ML Syringe IV ×4 (10:08→21:09)
[2021-06-12] MEDS: Enoxaparin 30 MG/0.3 ML Syringe SC (10:09)
[2021-06-12] MEDS: Magnesium Chloride 64 MG Delay Rel.Tablet 128 MG PO (10:10)
[2021-06-12] MEDS: Pantoprazole Sodium 40 MG Tablet PO (10:12)
--- NOTE | 2021-06-12 11:17 | NURSING ---
Informed spouse via phone concerning transfer to ICU
--- NOTE | 2021-06-12 13:29 | NURSING ---
patient received on floor at 1200 report received from Kenney FULLER
--- NOTE | 2021-06-12 13:29 | EX.PCM.CONCC ---
Assessment & Plan Assessment/Plan (1) Acute respiratory failure with hypoxia: (2) COVID-19: (3) TRANG (acute kidney injury): PLAN: RECOMMENDATIONS: 1. Complete courses of remdesivir, Decadron and barcitinib 2. Diurese as tolerated. Avoid IV fluids if possible 3. Agree with therapeutic Lovenox 4. Wean oxygen as tolerated 5. Encourage prone positioning 6. Monitor renal and liver function daily IMPRESSIONS: 1. Acute hypoxic respiratory failure secondary to COVID-19 Patient appears to be worsening over the course of the hospitalization. Patient is on all available therapy. Will complete courses as ordered. Patient would benefit from diuresis as renal function will allow. Cannot exclude the need for progression to intubation. Patient should be encouraged to maintain a prone position if possible. Given severity and potential of decompensation, agree with transition to therapeutic Lovenox. Will initiate bronchodilators to help with recruitment. We will also place patient on codeine to help prevent development of pneumomediastinum. 2. Obesity/advanced age/asthma/hypertension/chronic pain syndrome/unvaccinated state Complicates care, management, recovery and prognosis. Okay to continue antihypertensives for now. Patient states pain is well controlled. TIME: 35 minutes critical care time spent addressing patient's acute hypoxic respiratory failure, review of all data and collaboration with care team (12 PM to 2 PM) HPI Consult Data Date of Consult: 06/12/21 HPI Narrative HPI Narrative: CECILIA HOLDER is a 76 M, with past medical history listed below, who presents to [facility] 06[facility]08[facility]21 secondary to progressive shortness of breath. Patient reportedly started to have worsening shortness of breath, headache and body aches 8 days prior to presentation. Patient had reported decreased p.o. intake and thought that he was dehydrated. Patient did not have any nausea, vomiting or diarrhea and has not reported any change in taste or smell. Patient does have a history of asthma and was a smoker 30 years ago. In the ER, patient was noted to be 99.3 ?F and slightly tachypneic at 22 breaths/min. Patient was initially doing well on room air, but then required 2 L nasal cannula to maintain saturations. Laboratory work-up was relatively unremarkable except for a hemoglobin of 16.7, BUN of 43 and a creatinine of 1.7. Procalcitonin was slightly elevated at 0.27 and CRP was elevated at 60.5. Chest x-ray showed bilateral patchy infiltrates. Patient was admitted to the floor, initiated on supplemental oxygen, remdesivir and Decadron. Over the course of patient's hospitalization, he has continued to be more hypoxic. Patient changed his CODE STATUS to full code and was requiring BiPAP at over 75% FiO2, so he was transferred to the intensive care unit for further monitoring. Patient overall feels subjectively unchanged from admission. Patient states he feels relatively fine as long as his BiPAP is in place. Patient denies any current chest pain, abdominal pain, nausea or vomiting. Patient has not had any problems with epistaxis. Patient does not report any trouble with swallowing. Review of systems otherwise negative from a constitutional, HEENT, respiratory, cardiovascular, GI, genitourinary, musculoskeletal, skin, neurologic, psychiatric and hematologic system unless stated above. [facility] Medical History Asthma Former smoker Hypertension Sleep apnea Home Medications albuterol sulfate 2 puff INHALATION Q4H PRN PRN 06/27/19 [History Last Taken Unknown] atorvastatin 20 mg PO QHS 06/27/19 [History Last Taken Unknown] celecoxib 200 mg PO DAILY 06/27/19 [History Last Taken Unknown] diltiazem HCl 240 mg PO DAILY 06/27/19 [History Last Taken Unknown] esomeprazole magnesium 40 mg PO DAILY 06/27/19 [History Last Taken Unknown] hydrochlorothiazide 25 mg PO DAILY 06/27/19 [History Last Taken Unknown] losartan 50 mg PO BID 06/27/19 [History Last Taken 07/10/19] magnesium oxide 400 mg PO DAILY 06/27/19 [History Last Taken Unknown] aqxwvhhi-wyq-VH-lycopen-lutein 1 ea PO DAILY 06/27/19 [History Last Taken Unknown] psyllium husk (aspartame) 1 packet PO DAILY 06/27/19 [History Last Taken Unknown] aspirin 81 mg PO QHS 06/09/21 [History Last Taken Unknown] azelastine 1 spray INTRANASAL BID 06/09/21 [History Last Taken Unknown] tramadol 50 mg PO Q6H PRN PRN 06/09/21 [History Last Taken Unknown] Allergy/AdvReac Type Severity Reaction Status Date / Time No Known Allergies Allergy Verified 06/08/21 19:58 Family History Other Cancer Christel Gehrig's disease Surgical History H/O knee surgery History of back surgery History of hip surgery Social History Smoking Status: Former smoker ROS ROS Narrative See HPI Physical Exam Const alert and oriented x3 General Appearance: cooperative and on BiPAP Exam Limitations: no limitations Nutritional Appearance: obese HEENT normocephalic and head/scalp atraumatic Eyes PERRL and EOMs intact bilaterally Eyes Narrative: Scleral injection noted Neck supple and No nodes Chest inspection of chest normal Chest: symmetrical chest wall rise; Negative for crepitus Resp Auscultation: diminished lung sounds; Negative for rales, rhonchi or wheezes Cardio regular rate, regular rhythm, S1 normal heart sound, S2 normal heart sound, no murmurs, no rub and no gallops GI normal to inspection, nondistended, normoactive bowel sounds Extremity General Extremity: edema bilateral lower extremity Details: mild; Negative for clubbing or cyanosis Skin no rashes or lesions noted Neuro CN's II-XII intact bilaterally Psych mental status grossly normal, thought process normal and cooperative Medical Records Data Medical Nutrition Assessment Dietitian: Malnutrition Criteria Met Start: 06/09/21 11:16 Freq: Status: Active Protocol: Document 06/09/21 11:16 RMA (Rec: 06/09/21 11:16 RMA [id number]) Nutrition Malnutrition Evidence of Malnutrition Exists Yes Malnutrition (severe): Acute Illness/Injury Evidenced By Suboptimal Energy Intake ( Severe),Weight Loss (Severe) Clinical Problem Acute Disease or Injury Related Malnutrition Etiology Severe pro/dakota malnutrition in the context of acute illness/ infection related to poor appetite and inability to take adequate PO nutrition Signs/Symptoms as evidenced by ~2% wt loss x past 5 days and PO meeting less than 50% estimated nutrition needs. Status Active Problem Recommendation Dietitian Recommendations/Changes Continue regular diet as ordered. Will add 120ml ensure enlive TID w/ meals. Adjust ONS as needed to optimize oral intake and prevent further wt loss. Lab / Micro Data Result Diagrams: 06/12/21 06:31 06/12/21 06:31 Labs: Laboratory Results - last 24 hr 06/12/21 06:31: WBC 7.2, RBC 5.62, Hgb 16.3, Hct 48.5, MCV 86.3, MCH 29.0, MCHC 33.6, RDW Std Deviation 42.7, RDW Coeff of Bijan 13.5, Plt Count 151, MPV 11.2, Immature Gran % (Auto) 0.400, Neut % (Auto) 81.1 H, Lymph % (Auto) 8.4 L, Kleberg % (Auto) 10.0, Eos % (Auto) 0.0, Baso % (Auto) 0.1, Absolute Neuts (auto) 5.9, Absolute Lymphs (auto) 0.61 L, Nucleated RBC % 0, Differential Comment SCANNED 06/12/21 06:31: Sodium 140, Potassium 3.5, Chloride 104, Carbon Dioxide 28.0, Anion Gap 8, BUN 39 H, Creatinine 0.99, Estim Creat Clear Calc 57.49, Est GFR (MDRD) Af Amer 94, Est GFR (MDRD) Non-Af 78, BUN/Creatinine Ratio 39.5 H, Glucose 166 H, Calcium 8.4 L, Total Bilirubin 0.60, AST 109 H, ALT 95 H, Alkaline Phosphatase 50, Total Protein 6.3 L, Albumin 2.5 L, Globulin 3.8, Albumin/Globulin Ratio 0.7 L Charges/Coding Procedures Hospitalists Procedures: 25221 Critial Care 1st Hr
[2021-06-12] MEDS: Multivitamin (Healthy Eyes) Capsule 1 CAP PO (14:02)
[2021-06-12] MEDS: Enoxaparin 120 MG/0.8 ML Syringe 110 MG SC (21:09)
[2021-06-12] MEDS: Atorvastatin Calcium 20 MG Tablet PO (21:09)
[2021-06-12] MEDS: Aspirin 81 MG TAB.CHEW PO (21:09)
[2021-06-13] VITALS (33 sets, daily range): BP systolic 106–153; BP diastolic 75–112; PULSE 61–100; RESP 12–30; TEMP 36.3–37.2; O2SAT 82–98
--- NOTE | 2021-06-13 03:35 | RAD_ITS ---
STUDY: X-RAY CHEST REASON FOR EXAM: Male, 76 years old. Respiratory Distress TECHNIQUE: Single AP portable view of the chest. COMPARISON: 06/08/2021 FINDINGS: Increase in the patchy alveolar opacities in both lungs consistent with worsening bilateral pneumonia. There is no demonstrated pleural abnormality. Normal size heart. Normal mediastinum and samira. Normal visualized pulmonary arteries. Normal visualized aortic arch and descending thoracic aorta. Normal visualized thoracic spine. Normal visualized ribs, clavicles, and shoulders. There is no demonstrated abnormality of the visualized soft tissue structures of the upper abdomen. RAD/Chest 1 View (Portable) IMPRESSION: Worsening bilateral pneumonia. Electronically Signed: Néstor Ash MD at 7:05 EDT Tel , Service support ,
[2021-06-13 03:49] LABS: Absolute Lymphocyte Count 0.83 X10^3/uL (0.83-4.51); Absolute Neutrophil Count 4.6 X10^3/uL (2.0-7.7); Basophil# 0.02 X10^3/uL; Basophil% 0.3 % (0-1); Eosinophil# 0.16 X10^3/uL; Eosinophils% 2.5 % (0-5); Hematocrit 47.4 % (40-54); Hemoglobin 15.5 g/dL (13.0-16.5); Lymphocyte # 0.83 X10^3/ul (0.83-4.51); Lymphocyte % 13.1 % (19-41); Mean Corp Hgb Conc 32.7 g/dL (32-36); Mean Corpuscular Hgb 29.2 pg (27.0-32.0); Mean Corpuscular Volume 89.3 fL (80-94); Mean Platelet Vol. 10.9 fl (6.2-12.0); Monocyte# 0.66 X10^3/uL; Monocyte% 10.4 % (0-10); NRBC Flagged by Analyzer 0 % (0-5); Neutrophil # 4.63 X10^3/uL (2.7-7.7); Neutrophil % 73.1 % (47-70); POSITIVE MORPHOLOGY YES; Platelet Count 181 K/mm3 (150-450); RBC Distribution Width CV 13.4 % (11.6-14.6); RBC Distribution Width SD 43.8 fl (35.1-43.9); Red Blood Count 5.31 M/mm3 (4.6-6.2); White Blood Count 6.3 K/mm3 (4.4-11.0)
[2021-06-13 03:52] LABS: Differential Indicated SCAN CRITERIA MET
[2021-06-13 04:07] LABS: ALB/GLOB Ratio 0.7 RATIO (0.9-2.4); AST(SGOT) 76 U/L (15-37); Alanine Aminotransfer ALT/SGPT 80 U/L (16-61); Albumin, Serum 2.2 g/dL (3.2-5.0); Alkaline Phosphatase 42 U/L (45-117); Anion Gap 9 (5-15); BUN 44 mg/dL (7-18); BUN/Creat Ratio 43.6 RATIO (10-20); Calcium,Total 7.2 mg/dL (8.5-10.1); Chloride 108 mmol/L (98-107); Creatinine, Serum 1.01 mg/dL (0.70-1.30); EST Glomerular Filtration Rate 76 mL/min (>60); Est Glom Filt Rate - Afr Amer 92 mL/min (>60); Estimated Creatinine Clearance 56.36 ml/min; Globulin 3.3 g/dL (2.2-4.2); Glucose 162 mg/dL (74-106); Potassium 2.9 mmol/L (3.5-5.1); Protein, Total 5.5 g/dL (6.4-8.2); Sodium Level 147 mmol/L (136-145)
[2021-06-13] MEDS: Potassium Chloride 10mEq/100mL 10 MEQ/100 ML IV.SOLN. 100 MEQ IV BOLUS (06:45)
[2021-06-13] MEDS: Potassium Chloride 10mEq/100mL 10 MEQ/100 ML IV.SOLN. 50 MEQ IV BOLUS ×3 (08:17→13:00)
--- NOTE | 2021-06-13 08:36 | PCM.PN.INT ---
Assessment & Plan Assessment/Plan (1) Acute respiratory failure with hypoxia: (2) COVID-19: (3) TRANG (acute kidney injury): PLAN: RECOMMENDATIONS: 1. Completed course of remdesivir. Okay to continue Decadron and barcitinib 2. Replete potassium with potential diuresis this afternoon 3. Agree with therapeutic Lovenox 4. Wean oxygen as tolerated 5. Encourage prone positioning 6. Monitor renal and liver function daily 7. Potential intubation later this morning IMPRESSIONS: 1. Acute hypoxic respiratory failure secondary to COVID-19 Patient appears to be worsening over the course of the hospitalization. Patient is on all available therapy. Liver function is slightly elevated, but will complete courses as ordered. Patient would benefit from diuresis as renal function will allow. Patient with significant hypokalemia, so will attempt to address that before more diuretics. Anticipate progression to intubation later today. Patient should be encouraged to maintain a prone position if possible. Given severity and potential of decompensation, agree with transition to therapeutic Lovenox. Will initiate bronchodilators to help with recruitment. We will also place patient on codeine to help prevent development of pneumomediastinum. 2. Obesity/advanced age/asthma/hypertension/chronic pain syndrome/unvaccinated state Complicates care, management, recovery and prognosis. Okay to continue antihypertensives for now. Patient states pain is well controlled. TIME: 40 minutes critical care time spent addressing patient's acute hypoxic respiratory failure, review of all data and collaboration with care team (7:30 AM to 8:30 AM) Subjective Subjective Patient did okay overnight from a hemodynamic standpoint. Patient has been prone positioning independently intermittently. However, patient is requiring 100% to maintain saturations. There was some concern for the development of crepitus overnight, but chest x-ray did not show pneumomediastinum or pneumothorax. Patient subjectively feels better this morning, but is up from 90% FiO2. Objective Data Objective Data Vital Signs: Vital Signs Temp Pulse Resp BP Pulse Ox 37.2 C 80 26 H 143/100 H 88 06/13/21 04:00 06/13/21 07:39 06/13/21 07:39 06/13/21 07:00 06/13/21 07:39 Oxygen Flow Rate (L/min) 55 Oxygen Delivery Method Bi-pap Weight: 100.698 kg Body Mass Index (BMI) 37.8 Intake & Output: Intake and Output for Last 24 Hours 06/11/21 06/12/21 06/13/21 23:59 23:59 23:59 Intake Total 730 / 730 690 / 690 350.00 / 350.00 Output Total 800 / 800 1050 / 1050 750 / 750 Balance -70 / -70 -360 / -360 -400.00 / -400.00 Medical Nutrition Assessment Dietitian: Malnutrition Criteria Met Start: 06/09/21 11:16 Freq: Status: Active Protocol: Document 06/09/21 11:16 RMA (Rec: 06/09/21 11:16 RMA [id number]) Nutrition Malnutrition Evidence of Malnutrition Exists Yes Malnutrition (severe): Acute Illness/Injury Evidenced By Suboptimal Energy Intake ( Severe),Weight Loss (Severe) Clinical Problem Acute Disease or Injury Related Malnutrition Etiology Severe pro/[place] malnutrition in the context of acute illness/ infection related to poor appetite and inability to take adequate PO nutrition Signs/Symptoms as evidenced by ~2% wt loss x past 5 days and PO meeting less than 50% estimated nutrition needs. Status Active Problem Recommendation Dietitian Recommendations/Changes Continue regular diet as ordered. Will add 120ml ensure enlive TID w/ meals. Adjust ONS as needed to optimize oral intake and prevent further wt loss. Lab / Micro Data Result Diagrams: 06/13/21 03:35 06/13/21 03:35 Labs: Laboratory Results - last 24 hr 06/13/21 03:35: WBC 6.3, RBC 5.31, Hgb 15.5, Hct 47.4, MCV 89.3, MCH 29.2, MCHC 32.7, RDW Std Deviation 43.8, RDW Coeff of [place] 13.4, Plt Count 181, MPV 10.9, Immature Gran % (Auto) 0.600, Neut % (Auto) 73.1 H, Lymph % (Auto) 13.1 L, [place] % (Auto) 10.4 H, Eos % (Auto) 2.5, Baso % (Auto) 0.3, Absolute Neuts (auto) 4.6, Absolute Lymphs (auto) 0.83, Nucleated RBC % 0 06/13/21 03:35: Sodium 147 H, Potassium 2.9 L, Chloride 108 H, Carbon Dioxide 30.0, Anion Gap 9, BUN 44 H, Creatinine 1.01, Estim Creat Clear Calc 56.36, Est GFR (MDRD) Af Amer 92, Est GFR (MDRD) Non-Af 76, BUN/Creatinine Ratio 43.6 H, Glucose 162 H, Calcium 7.2 L, Total Bilirubin 0.60, AST 76 H, ALT 80 H, Alkaline Phosphatase 42 L, Total Protein 5.5 L, Albumin 2.2 L, Globulin 3.3, Albumin/Globulin Ratio 0.7 L Radiography Diagnostic Testing: Radiology Impression Chest X-Ray 06/13/21 03:35 IMPRESSION: Worsening bilateral pneumonia. Electronically Signed: Néstor Ash MD at 7:05 EDT Tel , Service support , Physical Exam Const alert and oriented x3 General Appearance: cooperative and on BiPAP Exam Limitations: no limitations Nutritional Appearance: obese HEENT normocephalic and head/scalp atraumatic Eyes PERRL and EOMs intact bilaterally Eyes Narrative: Scleral injection noted Neck supple and No nodes Chest inspection of chest normal Chest: symmetrical chest wall rise; Negative for crepitus Resp Auscultation: diminished lung sounds; Negative for rales, rhonchi or wheezes Cardio regular rate, regular rhythm, S1 normal heart sound, S2 normal heart sound, no murmurs, no rub and no gallops GI normal to inspection, nondistended, normoactive bowel sounds Extremity General Extremity: edema bilateral lower extremity Details: mild; Negative for clubbing or cyanosis Skin no rashes or lesions noted Neuro CN's II-XII intact bilaterally Psych mental status grossly normal, thought process normal and cooperative Charges/Coding Procedures Hospitalists Procedures: 89783 Critial Care 1st Hr
[2021-06-13] MEDS: guaiFENesin/Codeine 5 ML UDC 10 ML PO ×3 (09:00→20:32)
[2021-06-13] MEDS: dexAMETHasone 2 MG TABLET 6 MG PO (09:01)
[2021-06-13] MEDS: Potassium Chloride Oral Tablet 20 MEQ 40 MEQ PO ×2 (09:01→20:32)
[2021-06-13] MEDS: Magnesium Chloride 64 MG Delay Rel.Tablet 128 MG PO (09:01)
[2021-06-13] MEDS: Acetaminophen 325 MG Tablet 650 MG PO (09:01)
[2021-06-13] MEDS: Pantoprazole Sodium 40 MG Tablet PO (09:01)
[2021-06-13] MEDS: Multivitamin (Healthy Eyes) Capsule 1 CAP PO (09:01)
[2021-06-13] MEDS: dilTIAZem CD 240 MG Capsule PO (09:01)
[2021-06-13] MEDS: Furosemide 40 MG/4 ML Vial IV ×2 (09:02→17:14)
[2021-06-13] MEDS: Enoxaparin 120 MG/0.8 ML Syringe 110 MG SC ×2 (09:02→20:31)
[2021-06-13] MEDS: 0.9% Saline Lock 10 ML Syringe IV ×2 (09:02→17:14)
--- NOTE | 2021-06-13 12:41 | PN.HOSP_ITS ---
Subjective Subjective tolerating BiPAP. Objective Data Objective Data Vital Signs: Vital Signs Temp Pulse Resp BP Pulse Ox 36.4 C L 78 19 H 126/99 H 96 06/13/21 12:00 06/13/21 12:00 06/13/21 12:00 06/13/21 12:00 06/13/21 12:00 Oxygen Flow Rate (L/min) 55 Oxygen Delivery Method Bi-pap Weight: 100.698 kg Body Mass Index (BMI) 37.8 Intake & Output: Intake and Output for Last 24 Hours 06/11/21 06/12/21 06/13/21 23:59 23:59 23:59 Intake Total 730 / 730 690 / 690 570.00 / 570.00 Output Total 800 / 800 1050 / 1050 1450 / 1450 Balance -70 / -70 -360 / -360 -880.00 / -880.00 Medical Nutrition Assessment Dietitian: Malnutrition Criteria Met Start: 06/09/21 11:16 Freq: Status: Active Protocol: Document 06/13/21 10:57 JUAN F (Rec: 06/13/21 10:57 SLA [id number]) Nutrition Malnutrition Evidence of Malnutrition Exists Yes Malnutrition (severe): Acute Illness/Injury Evidenced By Suboptimal Energy Intake ( Severe),Weight Loss (Severe) Intake Problem Inadequate Oral Intake Etiology related to worsening resp status Signs/Symptoms as evidenced by no diet ordered and 8.1% wt loss since adm (06/08) Status Active Problem Clinical Problem Acute Disease or Injury Related Malnutrition Etiology Severe pro/[place] malnutrition in the context of acute illness/ infection related to poor appetite and inability to take adequate PO nutrition Signs/Symptoms as evidenced by 8.1% wt loss and inadequate po intake to meet estimated nutritional needs x >5 days. Status Active Problem Recommendation Dietitian Recommendations/Changes When intubated, rec Vital AF 1 .2 at goal rate 65 ml/hr with 100 ml free water every 4 hours to provide ~ 1872 [place]/ 117 gm pro/ 1865 ml free water per day. Would start tf at 25 ml/hr and increase by 20 ml every 8-10 hrs as pt tolerates until goal rate achieved. Lab / Micro Data Result Diagrams: 06/13/21 03:35 06/13/21 03:35 Labs: Laboratory Results - last 24 hr 06/13/21 03:35: WBC 6.3, RBC 5.31, Hgb 15.5, Hct 47.4, MCV 89.3, MCH 29.2, MCHC 32.7, RDW Std Deviation 43.8, RDW Coeff of [place] 13.4, Plt Count 181, MPV 10.9, Immature Gran % (Auto) 0.600, Neut % (Auto) 73.1 H, Lymph % (Auto) 13.1 L, [place] % (Auto) 10.4 H, Eos % (Auto) 2.5, Baso % (Auto) 0.3, Absolute Neuts (auto) 4.6, Absolute Lymphs (auto) 0.83, Nucleated RBC % 0 06/13/21 03:35: Sodium 147 H, Potassium 2.9 L, Chloride 108 H, Carbon Dioxide 30.0, Anion Gap 9, BUN 44 H, Creatinine 1.01, Estim Creat Clear Calc 56.36, Est GFR (MDRD) Af Amer 92, Est GFR (MDRD) Non-Af 76, BUN/Creatinine Ratio 43.6 H, Glucose 162 H, Calcium 7.2 L, Total Bilirubin 0.60, AST 76 H, ALT 80 H, Alkaline Phosphatase 42 L, Total Protein 5.5 L, Albumin 2.2 L, Globulin 3.3, Albumin/Globulin Ratio 0.7 L Radiography Diagnostic Testing: Radiology Impression Chest X-Ray 06/13/21 03:35 IMPRESSION: Worsening bilateral pneumonia. Electronically Signed: Néstor Ash MD at 7:05 EDT Tel , Service support , Physical Exam Const Constitutional Narrative: on BiPAP. lying on his right side Resp normal respiratory effort, no retractions, no use of accessory muscles and clear to auscultation bilaterally Cardio regular rate, regular rhythm, S1 normal heart sound and S2 normal heart sound GI normal to inspection, nondistended, normoactive bowel sounds, soft to palpation, non-tender and non-distended Neuro Sensorium / Orientation: awake and alert Assessment & Plan Assessment/Plan (1) COVID-19: (2) Severe acute respiratory syndrome: PLAN: 1. Acute COVID-19 pneumonia Onset was 06/01/2021 On dexamethasone and remdesivir and barcitinib Unvaccinated claiming that he was waiting on a more ideal vaccine. ongoing 2. Elevated creatinine Resolved Admission creatinine was 1.7. Last available creatinine was from 2019 was 1.28 at that time. I cannot qualify this is acute kidney injury. Patient did receive IV fluids. 3. Acute hypoxic respiratory failure: Worsening, now on BiPAP Change to therapeutic enoxaparin Continue furosemide 4. VTE prophylaxis not indicated with current anticoagulation 5. Code status: Full Code. Changed on 06/12 from DNRCCA, DNI. Charges/Coding Visit Charges Inpatient E&M: 31109 Subs Hosp L2
[2021-06-13] MEDS: Aspirin 81 MG TAB.CHEW PO (20:32)
[2021-06-13] MEDS: Atorvastatin Calcium 20 MG Tablet PO (20:33)
[2021-06-14] VITALS (34 sets, daily range): BP systolic 120–175; BP diastolic 64–114; PULSE 64–103; RESP 12–33; TEMP 36.1–37.3; O2SAT 88–98
[2021-06-14 04:56] LABS: Absolute Lymphocyte Count 1.04 X10^3/uL (0.83-4.51); Basophil# 0.04 X10^3/uL; Basophil% 0.4 % (0-1); Eosinophil# 0.16 X10^3/uL; Eosinophils% 1.6 % (0-5); Hematocrit 54.9 % (40-54); Lymphocyte # 1.04 X10^3/ul (0.83-4.51); Lymphocyte % 10.1 % (19-41); Mean Corp Hgb Conc 32.8 g/dL (32-36); Mean Corpuscular Hgb 29.3 pg (27.0-32.0); Mean Corpuscular Volume 89.3 fL (80-94); Mean Platelet Vol. 11.5 fl (6.2-12.0); Monocyte# 0.98 X10^3/uL; Monocyte% 9.6 % (0-10); NRBC Flagged by Analyzer 0 % (0-5); Neutrophil # 7.95 X10^3/uL (2.7-7.7); Neutrophil % 77.5 % (47-70); POSITIVE MORPHOLOGY YES; Platelet Count 223 K/mm3 (150-450); RBC Distribution Width CV 13.6 % (11.6-14.6); RBC Distribution Width SD 44.1 fl (35.1-43.9); Red Blood Count 6.15 M/mm3 (4.6-6.2); White Blood Count 10.3 K/mm3 (4.4-11.0)
[2021-06-14 05:05] LABS: Differential Indicated SCAN CRITERIA MET
[2021-06-14 05:15] LABS: ALB/GLOB Ratio 0.7 RATIO (0.9-2.4); AST(SGOT) 81 U/L (15-37); Alanine Aminotransfer ALT/SGPT 97 U/L (16-61); Alkaline Phosphatase 56 U/L (45-117); Anion Gap 7 (5-15); BUN 55 mg/dL (7-18); BUN/Creat Ratio 40.7 RATIO (10-20); Calcium,Total 8.8 mg/dL (8.5-10.1); Chloride 106 mmol/L (98-107); Creatinine, Serum 1.35 mg/dL (0.70-1.30); EST Glomerular Filtration Rate 54 mL/min (>60); Est Glom Filt Rate - Afr Amer 66 mL/min (>60); Estimated Creatinine Clearance 42.16 ml/min; Globulin 4.1 g/dL (2.2-4.2); Glucose 176 mg/dL (74-106); Potassium 4.6 mmol/L (3.5-5.1); Protein, Total 7.1 g/dL (6.4-8.2); Sodium Level 143 mmol/L (136-145)
--- NOTE | 2021-06-14 06:42 | PCM.PN.INT ---
Assessment & Plan Assessment/Plan (1) Acute respiratory failure with hypoxia: (2) COVID-19: (3) TRANG (acute kidney injury): PLAN: RECOMMENDATIONS: 1. Completed course of remdesivir. Okay to continue Decadron and barcitinib. 2. Attempt to wean patient from BiPAP to heated high flow as tolerated. 3. Continue Lovenox twice daily as ordered. 4. Start BuSpar scheduled and as needed Ativan for anxiolysis. 5. Encourage prone positioning. 6. Hold diuretics, given TRANG. IMPRESSIONS: 1. Acute hypoxic respiratory failure secondary to COVID-19 pneumonia The patient has completed a treatment course of remdesivir and remains on Decadron and baricitinib, which will be continued as well. His respiratory status is still somewhat tenuous. We will attempt to wean from BiPAP support to heated high flow today. Continue Lovenox therapy as ordered. Recommend holding diuretic therapy given interval worsening in renal function. Awake prone positioning was again encouraged. Continue bronchodilator therapy. Encourage incentive spirometer use and mobilize patient as tolerated. 2. TRANG Likely prerenal in etiology and related to overdiuresis. Diuretics have been discontinued at this time. Continue to monitor urine output. No current indication for renal replacement therapy. 3. Generalized anxiety Okay to start scheduled BuSpar today along with as needed Ativan. 4. Obesity/advanced age/asthma/hypertension/chronic pain syndrome/unvaccinated state Complicates care, management, recovery and prognosis. Continue bronchodilator therapy. This note was generated with [employer] dictation software. It may contain incorrect words, spelling, and punctuation that were not noted in checking the note before signing. Subjective Subjective The patient was seen and examined at the bedside this morning. Events from the last 24 hours have been reviewed. The patient is currently afebrile, hemodynamically stable and maintaining appropriate oxygen saturations on BiPAP 14/9 with an FiO2 requirement of 60%. The patient has been proning himself throughout the course of the night. Per nursing report, he has a significant amount of anxiety. He is currently documented to be overall net +1.6 L for the hospital admission. The patient remains on Decadron and baricitinib. Creatinine has increased to 1.35 this morning. Objective Data Objective Data The patient's most recent lab work, culture data and imaging studies have all been personally reviewed. Vital Signs: Vital Signs Temp Pulse Resp BP Pulse Ox 99.2 F H 74 19 H 141/99 H 93 06/14/21 04:00 06/14/21 06:00 06/14/21 06:00 06/14/21 06:00 06/14/21 06:00 Oxygen Flow Rate (L/min) 60 Oxygen Delivery Method Bi-pap Weight: 99.7 kg Body Mass Index (BMI) 37.8 Intake & Output: Intake and Output for Last 24 Hours 06/12/21 06/13/21 06/14/21 23:59 23:59 23:59 Intake Total 690 / 690 1130.00 / 1130.00 Output Total 1050 / 1050 2000 / 2550 900 / 900 Balance -360 / -360 -870.00 / -1420.00 -900 / -900 Medical Nutrition Assessment Dietitian: Malnutrition Criteria Met Start: 06/09/21 11:16 Freq: Status: Active Protocol: Document 06/13/21 10:57 JUAN F (Rec: 06/13/21 10:57 SLA [id number]) Nutrition Malnutrition Evidence of Malnutrition Exists Yes Malnutrition (severe): Acute Illness/Injury Evidenced By Suboptimal Energy Intake ( Severe),Weight Loss (Severe) Intake Problem Inadequate Oral Intake Etiology related to worsening resp status Signs/Symptoms as evidenced by no diet ordered and 8.1% wt loss since adm (06/08) Status Active Problem Clinical Problem Acute Disease or Injury Related Malnutrition Etiology Severe pro/d[place] malnutrition in the context of acute illness/ infection related to poor appetite and inability to take adequate PO nutrition Signs/Symptoms as evidenced by 8.1% wt loss and inadequate po intake to meet estimated nutritional needs x >5 days. Status Active Problem Recommendation Dietitian Recommendations/Changes When intubated, rec Vital AF 1 .2 at goal rate 65 ml/hr with 100 ml free water every 4 hours to provide ~ 1872 [place]/ 117 gm pro/ 1865 ml free water per day. Would start tf at 25 ml/hr and increase by 20 ml every 8-10 hrs as pt tolerates until goal rate achieved. Lab / Micro Data Result Diagrams: 06/14/21 04:30 06/14/21 04:30 Labs: Laboratory Results - last 24 hr 06/14/21 04:30: WBC 10.3, RBC 6.15, Hgb 18.0 H*, Hct 54.9 H, MCV 89.3, MCH 29.3, MCHC 32.8, RDW Std Deviation 44.1 H, RDW Coeff of [place] 13.6, Plt Count 223, MPV 11.5, Immature Gran % (Auto) 0.800, Neut % (Auto) 77.5 H, Lymph % (Auto) 10.1 L, [place] % (Auto) 9.6, Eos % (Auto) 1.6, Baso % (Auto) 0.4, Absolute Neuts (auto) 8.0 H, Absolute Lymphs (auto) 1.04, Nucleated RBC % 0 06/14/21 04:30: Sodium 143, Potassium 4.6, Chloride 106, Carbon Dioxide 30.0, Anion Gap 7, BUN 55 H, Creatinine 1.35 H, Estim Creat Clear Calc 42.16, Est GFR (MDRD) Af Amer 66, Est GFR (MDRD) Non-Af 54 L, BUN/Creatinine Ratio 40.7 H, Glucose 176 H, Calcium 8.8, Total Bilirubin 0.80, AST 81 H, ALT 97 H, Alkaline Phosphatase 56, Total Protein 7.1, Albumin 3.0 L, Globulin 4.1, Albumin/Globulin Ratio 0.7 L Radiography Diagnostic Testing: Radiology Impression Chest X-Ray 06/13/21 03:35 IMPRESSION: Worsening bilateral pneumonia. Electronically Signed: Néstor Ash MD at 7:05 EDT Tel , Service support , Physical Exam Const alert Constitutional Narrative: Sitting in bedside recliner. General Appearance: cooperative and on BiPAP Nutritional Appearance: obese HEENT normocephalic and head/scalp atraumatic Eyes PERRL, EOMs intact bilaterally and conjunctivae normal Neck supple General: trachea midline Chest inspection of chest normal Resp Auscultation: diminished lung sounds; Negative for rales, rhonchi or wheezes Cardio regular rate and regular rhythm GI normal to inspection, nondistended, normoactive bowel sounds Extremity no clubbing, cyanosis or edema Skin no rashes or lesions noted Neuro CN's II-XII intact bilaterally, moves all extremities and no focal motor deficits Psych Mood & Affect: anxious Charges/Coding Visit Charges Inpatient E&M: 56966 Subs Hosp L3
[2021-06-14 07:18] LABS: Atypical Lymphocyte 2+ %
[2021-06-14] MEDS: 0.9% Saline Lock 10 ML Syringe IV (08:02)
[2021-06-14] MEDS: guaiFENesin/Codeine 5 ML UDC 10 ML PO (08:03)
[2021-06-14] MEDS: Enoxaparin 120 MG/0.8 ML Syringe 110 MG SC (08:03)
[2021-06-14] MEDS: Pantoprazole Sodium 40 MG Tablet PO (08:04)
[2021-06-14] MEDS: Furosemide 40 MG/4 ML Vial IV (08:04)
[2021-06-14] MEDS: dexAMETHasone 2 MG TABLET 6 MG PO (08:04)
[2021-06-14] MEDS: Multivitamin (Healthy Eyes) Capsule 1 CAP PO (08:04)
[2021-06-14] MEDS: Magnesium Chloride 64 MG Delay Rel.Tablet 128 MG PO (08:04)
[2021-06-14] MEDS: dilTIAZem CD 240 MG Capsule PO (08:08)
[2021-06-14] MEDS: busPIRone 5 MG Tablet 10 MG PO ×2 (10:50→20:51)
--- NOTE | 2021-06-14 14:10 | PCM.PN.HOSP ---
Subjective Subjective Placed back on Airvo and is feeling ok at present. Objective Data Objective Data Vital Signs: Vital Signs Temp Pulse Resp BP Pulse Ox 36.1 C L 84 22 H 137/101 H 90 06/14/21 12:00 06/14/21 12:00 06/14/21 12:00 06/14/21 12:00 06/14/21 12:00 Oxygen Flow Rate (L/min) 60 Oxygen Delivery Method Airvo Weight: 99.7 kg Body Mass Index (BMI) 37.8 Intake & Output: Intake and Output for Last 24 Hours 06/12/21 06/13/21 06/14/21 23:59 23:59 23:59 Intake Total 690 / 690 1130.00 / 1130.00 360 / 360 Output Total 1050 / 1050 2000 / 2550 1850 / 1850 Balance -360 / -360 -870.00 / -1420.00 -1490 / -1490 Medical Nutrition Assessment Dietitian: Malnutrition Criteria Met Start: 06/09/21 11:16 Freq: Status: Active Protocol: Document 06/13/21 10:57 SLA (Rec: 06/13/21 10:57 [facility] [id number]) Nutrition Malnutrition Evidence of Malnutrition Exists Yes Malnutrition (severe): Acute Illness/Injury Evidenced By Suboptimal Energy Intake ( Severe),Weight Loss (Severe) Intake Problem Inadequate Oral Intake Etiology related to worsening resp status Signs/Symptoms as evidenced by no diet ordered and 8.1% wt loss since adm (06/08) Status Active Problem Clinical Problem Acute Disease or Injury Related Malnutrition Etiology Severe pro/[place] malnutrition in the context of acute illness/ infection related to poor appetite and inability to take adequate PO nutrition Signs/Symptoms as evidenced by 8.1% wt loss and inadequate po intake to meet estimated nutritional needs x >5 days. Status Active Problem Recommendation Dietitian Recommendations/Changes When intubated, rec Vital AF 1 .2 at goal rate 65 ml/hr with 100 ml free water every 4 hours to provide ~ 1872 [place]/ 117 gm pro/ 1865 ml free water per day. Would start tf at 25 ml/hr and increase by 20 ml every 8-10 hrs as pt tolerates until goal rate achieved. Lab / Micro Data Result Diagrams: 06/14/21 04:30 06/14/21 04:30 Labs: Laboratory Results - last 24 hr 06/14/21 04:30: WBC 10.3, RBC 6.15, Hgb 18.0 H*, Hct 54.9 H, MCV 89.3, MCH 29.3, MCHC 32.8, RDW Std Deviation 44.1 H, RDW Coeff of [place] 13.6, Plt Count 223, MPV 11.5, Immature Gran % (Auto) 0.800, Neut % (Auto) 77.5 H, Lymph % (Auto) 10.1 L, [place] % (Auto) 9.6, Eos % (Auto) 1.6, Baso % (Auto) 0.4, Absolute Neuts (auto) 8.0 H, Absolute Lymphs (auto) 1.04, Nucleated RBC % 0, Diff Path Review January, Atypical Lymphocytes 2+ 06/14/21 04:30: Sodium 143, Potassium 4.6, Chloride 106, Carbon Dioxide 30.0, Anion Gap 7, BUN 55 H, Creatinine 1.35 H, Estim Creat Clear Calc 42.16, Est GFR (MDRD) Af Amer 66, Est GFR (MDRD) Non-Af 54 L, BUN/Creatinine Ratio 40.7 H, Glucose 176 H, Calcium 8.8, Total Bilirubin 0.80, AST 81 H, ALT 97 H, Alkaline Phosphatase 56, Total Protein 7.1, Albumin 3.0 L, Globulin 4.1, Albumin/Globulin Ratio 0.7 L Physical Exam Const alert Resp normal respiratory effort, no retractions, no use of accessory muscles and clear to auscultation bilaterally Cardio regular rate, regular rhythm, S1 normal heart sound and S2 normal heart sound GI normal to inspection, nondistended, normoactive bowel sounds, soft to palpation, non-tender and non-distended Extremity normal to inspection Assessment & Plan Assessment/Plan (1) COVID-19: (2) Severe acute respiratory syndrome: PLAN: 1. Acute COVID-19 pneumonia Onset was 06/01/2021 On dexamethasone and remdesivir and barcitinib Unvaccinated claiming that he was waiting on a more ideal vaccine. ongoing 2. Elevated creatinine Resolved Admission creatinine was 1.7. Last available creatinine was from 2019 was 1.28 at that time. I cannot qualify this is acute kidney injury. Patient did receive IV fluids. 3. Acute hypoxic respiratory failure: Back on Airvo Change to therapeutic enoxaparin Continue furosemide wean as able 4. VTE prophylaxis not indicated with current anticoagulation 5. Code status: Full Code. Changed on 06/12 from DNRCCA, DNI. Charges/Coding Visit Charges Inpatient E&M: 16086 Subs Hosp L2
--- NOTE | 2021-06-14 14:25 | CASEMGMT ---
SW called at home to offer support. She was able to speak w/her today which helped. She states is not feeling well, but is managing, is very tired. YESSY explained to will remain available for support as needed. NOHELIA Handy
--- NOTE | 2021-06-14 15:42 | PCM.PN.ID ---
Physical Exam Narrative Feeling better, no fever, no n/v/d, breathing improved Const alert and no apparent distress General Appearance: cooperative Resp clear to auscultation bilaterally Auscultation: diminished lung sounds Cardio regular rate and regular rhythm GI normal to inspection, nondistended, normoactive bowel sounds Skin no rashes or lesions noted ID ID: Route of nutrition/ use of supplements: [] Nutritional Intake: [] IV Site: [] Holcomb Catheter: [] Assessment & Plan Assessment/Plan (1) COVID-19: PLAN: Sx started 05/31. Unvaccinated. On dex, baricitinib and completed remdesivir. Quarantine until 06/20, recommend vaccine after that point. On therapeutic lovenox. 60% airvo this afternoon. Will follow (2) Hypoxia:
--- NOTE | 2021-06-14 19:00 | NURSING ---
This RN walks past patient room and sees patient standing in room naked with all lines removed. Only thing remaining intact to patient is saline lock to left hand. Blood spread throughout room on chair, floor, bed, and noted on patient's right hand and groin/legs. Noted that Patient removed IV to right hand with cannula intact and Schmitt catheter with balloon intact. Gauze applied to left hand, bleeding controlled. Patient put back in bed, linens changed and blood cleaned off patient. Pulled up in bed with Alan RT, blood gas drawn and patient placed on Bipap. #16 spanish schmitt catheter inserted using aseptic technique, 10cc saline inserted into balloon, bloody urine returned, bag placed below bladder, secured using a cath secure device. Environmental services contacted to help clean room. Will continue to monitor patient.
[2021-06-14 19:40] LABS: Base Excess 0 mmol/L (-2 to +2); Bicarbonate 22.5 mmol/L (22-26); Blood Gas Specimen Type ART; FI02 93; O2 Delivery Device AIRVO; PO2 55 mmHG (75-100); SITE R Brach; SO2 92 % (95-99); Total Carbon Dioxide 23 mmol/L; pCO2 27.7 mmHg (35-45); pH 7.52 (7.35-7.45)
[2021-06-14] MEDS: Atorvastatin Calcium 20 MG Tablet PO (20:47)
[2021-06-15] VITALS (32 sets, daily range): BP systolic 86–169; BP diastolic 61–114; PULSE 59–113; RESP 12–33; TEMP 36.6–37.2; O2SAT 84–95
--- NOTE | 2021-06-15 07:21 | PCM.PN.INT ---
Assessment & Plan Assessment/Plan (1) Acute respiratory failure with hypoxia: (2) COVID-19: (3) TRANG (acute kidney injury): PLAN: RECOMMENDATIONS: 1. Completed course of remdesivir. Okay to continue Decadron and barcitinib. 2. Continue combination of BiPAP/Airvo heated high flow as tolerated. 3. Continue Lovenox twice daily as ordered. 4. Encourage prone positioning. 5. Continue to hold diuretics, given TRANG. IMPRESSIONS: 1. Acute hypoxic respiratory failure secondary to COVID-19 pneumonia The patient has completed a treatment course of remdesivir and remains on Decadron and baricitinib, which will be continued as well. His respiratory status is still somewhat tenuous. Plan to continue a combination of BiPAP and heated high flow oxygen as tolerated. Goal to maintain oxygen saturations at or above 90%. Continue to hold diuretic therapy given TRANG. Awake prone positioning was again encouraged. Continue bronchodilator therapy. Encourage incentive spirometer use and mobilize patient as tolerated. 2. TRANG Likely prerenal in etiology and related to overdiuresis. Diuretics have been discontinued at this time. Continue to monitor urine output. No current indication for renal replacement therapy. 3. Generalized anxiety Okay to start Precedex for symptom relief. 4. Obesity/advanced age/asthma/hypertension/chronic pain syndrome/unvaccinated state Complicates care, management, recovery and prognosis. Continue bronchodilator therapy. This note was generated with [employer] dictation software. It may contain incorrect words, spelling, and punctuation that were not noted in checking the note before signing. Subjective Subjective The patient was seen and examined at the bedside this morning. Events from the last 24 hours have been reviewed. The patient is currently afebrile, hemodynamically stable and maintaining appropriate oxygen saturations on BiPAP with an FiO2 requirement of 55%. Yesterday evening, the patient became disoriented and agitated. He ripped out all of his IVs and Holcomb catheter. Although the patient was able to be maintained on Airvo heated high flow throughout the day yesterday, he did have to be placed back on BiPAP overnight. Objective Data Objective Data The patient's most recent lab work, culture data and imaging studies have all been personally reviewed. Vital Signs: Vital Signs Temp Pulse Resp BP Pulse Ox 98.2 F 97 26 H 164/113 H 92 06/15/21 00:00 06/15/21 07:00 06/15/21 07:00 06/15/21 07:00 06/15/21 07:00 Oxygen Flow Rate (L/min) 60 Oxygen Delivery Method Bi-pap Weight: 99.382 kg Body Mass Index (BMI) 37.8 Intake & Output: Intake and Output for Last 24 Hours 06/13/21 06/14/21 06/15/21 23:59 23:59 23:59 Intake Total 1130.00 / 1130.00 360 / 372 Output Total 1999 / 0 1850 / 2150 525 / 525 Balance -870.00 / -1420.00 -1490 / -1778 -513 / -513 Medical Nutrition Assessment Dietitian: Malnutrition Criteria Met Start: 06/09/21 11:16 Freq: Status: Active Protocol: Document 06/13/21 10:57 JUAN F (Rec: 06/13/21 10:57 SLA [id number]) Nutrition Malnutrition Evidence of Malnutrition Exists Yes Malnutrition (severe): Acute Illness/Injury Evidenced By Suboptimal Energy Intake ( Severe),Weight Loss (Severe) Intake Problem Inadequate Oral Intake Etiology related to worsening resp status Signs/Symptoms as evidenced by no diet ordered and 8.1% wt loss since adm (06/08) Status Active Problem Clinical Problem Acute Disease or Injury Related Malnutrition Etiology Severe pro/dakota malnutrition in the context of acute illness/ infection related to poor appetite and inability to take adequate PO nutrition Signs/Symptoms as evidenced by 8.1% wt loss and inadequate po intake to meet estimated nutritional needs x >5 days. Status Active Problem Recommendation Dietitian Recommendations/Changes When intubated, rec Vital AF 1 .2 at goal rate 65 ml/hr with 100 ml free water every 4 hours to provide ~ 1872 [place]/ 117 gm pro/ 1865 ml free water per day. Would start tf at 25 ml/hr and increase by 20 ml every 8-10 hrs as pt tolerates until goal rate achieved. Lab / Micro Data Attestation: I reviewed the patient's lab results. Result Diagrams: 06/15/21 09:54 06/15/21 09:54 ABG Data ABG results: ABG 06/14/21 19:37 Specimen Type ART Sample Site R Brach pH 7.52 H Bicarbonate Actual 22.5 Total CO2 23 Base Excess 0 O2 Saturation 92 L O2 % 93 ABG pCO2 27.7 L ABG pO2 55 L Jonathan Test N/A O2 Delivery Device AIRVO Physical Exam Const alert Constitutional Narrative: Sitting in bedside recliner. Airvo currently in place. General Appearance: cooperative Nutritional Appearance: obese HEENT normocephalic and head/scalp atraumatic Eyes PERRL, EOMs intact bilaterally and conjunctivae normal Neck supple General: trachea midline Chest inspection of chest normal Resp Effort and Inspection: tachypneic Auscultation: diminished lung sounds; Negative for rales, rhonchi or wheezes Cardio S1 normal heart sound, S2 normal heart sound and no murmurs Rate: tachycardic GI normal to inspection, nondistended, normoactive bowel sounds Extremity no clubbing, cyanosis or edema Skin no rashes or lesions noted Neuro CN's II-XII intact bilaterally, moves all extremities and no focal motor deficits Psych Mood & Affect: anxious Charges/Coding Visit Charges Inpatient E&M: 56023 Subs Hosp L3
[2021-06-15 07:39] LABS: Pathologist Review Reviewed
[2021-06-15] MEDS: dexAMETHasone 2 MG TABLET 6 MG PO (08:47)
[2021-06-15] MEDS: Pantoprazole Sodium 40 MG Tablet PO (08:48)
[2021-06-15] MEDS: busPIRone 5 MG Tablet 10 MG PO (08:48)
[2021-06-15] MEDS: 0.9% Saline Lock 10 ML Syringe IV (08:48)
[2021-06-15] MEDS: Enoxaparin 100 MG/ML Syringe SC ×2 (08:48→20:49)
[2021-06-15] MEDS: Multivitamin (Healthy Eyes) Capsule 1 CAP PO (08:49)
[2021-06-15] MEDS: Benzonatate 100 MG Capsule PO (08:49)
[2021-06-15] MEDS: dilTIAZem CD 240 MG Capsule PO (08:49)
[2021-06-15] MEDS: Magnesium Chloride 64 MG Delay Rel.Tablet 128 MG PO (08:49)
[2021-06-15] MEDS: guaiFENesin/Codeine 5 ML UDC 10 ML PO (08:49)
[2021-06-15 10:00] LABS: Absolute Neutrophil Count 17.6 X10^3/uL (2.0-7.7); Basophil# 0.08 X10^3/uL; Basophil% 0.4 % (0-1); Mean Corp Hgb Conc 31.8 g/dL (32-36); Mean Corpuscular Hgb 29.1 pg (27.0-32.0); Mean Corpuscular Volume 91.3 fL (80-94); Mean Platelet Vol. 11.4 fl (6.2-12.0); Monocyte# 1.28 X10^3/uL; Monocyte% 6.4 % (0-10); NRBC Flagged by Analyzer 0 % (0-5); Neutrophil # 17.61 X10^3/uL (2.7-7.7); Neutrophil % 88.5 % (47-70); Platelet Count 307 K/mm3 (150-450); RBC Distribution Width CV 13.7 % (11.6-14.6); RBC Distribution Width SD 46.3 fl (35.1-43.9); Red Blood Count 6.23 M/mm3 (4.6-6.2); White Blood Count 19.9 K/mm3 (4.4-11.0)
[2021-06-15 10:03] LABS: Hematocrit 56.9 % (40-54)
[2021-06-15 10:04] LABS: Differential Indicated SCAN CRITERIA MET; Hemoglobin 18.1 g/dL (13.0-16.5)
[2021-06-15 10:52] LABS: ALB/GLOB Ratio 0.7 RATIO (0.9-2.4); AST(SGOT) 83 U/L (15-37); Alanine Aminotransfer ALT/SGPT 99 U/L (16-61); Albumin, Serum 3.1 g/dL (3.2-5.0); Alkaline Phosphatase 61 U/L (45-117); Anion Gap 11 (5-15); BUN 59 mg/dL (7-18); BUN/Creat Ratio 41.3 RATIO (10-20); Calcium,Total 9.6 mg/dL (8.5-10.1); Chloride 105 mmol/L (98-107); Creatinine, Serum 1.43 mg/dL (0.70-1.30); EST Glomerular Filtration Rate 51 mL/min (>60); Est Glom Filt Rate - Afr Amer 62 mL/min (>60); Globulin 4.6 g/dL (2.2-4.2); Glucose 171 mg/dL (74-106); Potassium 4.6 mmol/L (3.5-5.1); Protein, Total 7.7 g/dL (6.4-8.2); Sodium Level 142 mmol/L (136-145)
--- NOTE | 2021-06-15 14:58 | PN.HOSP_ITS ---
Subjective Subjective Tolerating BiPAP. Patient did have agitation disorientation off IVs and catheter. Calm today. Objective Data Objective Data Vital Signs: Vital Signs Temp Pulse Resp BP Pulse Ox 37.2 C 81 27 H 110/82 H 90 06/15/21 12:00 06/15/21 14:00 06/15/21 14:00 06/15/21 14:00 06/15/21 14:00 Oxygen Flow Rate (L/min) 60 Oxygen Delivery Method Bi-pap Weight: 99.382 kg Body Mass Index (BMI) 37.8 Intake & Output: Intake and Output for Last 24 Hours 06/13/21 06/14/21 06/15/21 23:59 23:59 23:59 Intake Total 1130.00 / 1130.00 360 / 372 390.6 / 390.6 Output Total 1999 / 0 1850 / 2150 975 / 975 Balance -870.00 / -1420.00 -1490 / -1778 -584.4 / -584.4 Medical Nutrition Assessment Dietitian: Malnutrition Criteria Met Start: 06/09/21 11:16 Freq: Status: Active Protocol: Document 06/13/21 10:57 SLA (Rec: 06/13/21 10:57 [facility] [id number]) Nutrition Malnutrition Evidence of Malnutrition Exists Yes Malnutrition (severe): Acute Illness/Injury Evidenced By Suboptimal Energy Intake ( Severe),Weight Loss (Severe) Intake Problem Inadequate Oral Intake Etiology related to worsening resp status Signs/Symptoms as evidenced by no diet ordered and 8.1% wt loss since adm (06/08) Status Active Problem Clinical Problem Acute Disease or Injury Related Malnutrition Etiology Severe pro/dakota malnutrition in the context of acute illness/ infection related to poor appetite and inability to take adequate PO nutrition Signs/Symptoms as evidenced by 8.1% wt loss and inadequate po intake to meet estimated nutritional needs x >5 days. Status Active Problem Recommendation Dietitian Recommendations/Changes When intubated, rec Vital AF 1 .2 at goal rate 65 ml/hr with 100 ml free water every 4 hours to provide ~ 1872 [place]/ 117 gm pro/ 1865 ml free water per day. Would start tf at 25 ml/hr and increase by 20 ml every 8-10 hrs as pt tolerates until goal rate achieved. Lab / Micro Data Result Diagrams: 06/15/21 09:54 06/15/21 09:54 Labs: Laboratory Results - last 24 hr 06/14/21 04:30: Diff Path Review Reviewed 06/15/21 09:54: WBC 19.9 H, RBC 6.23 H, Hgb 18.1 H*, Hct 56.9 H, MCV 91.3, MCH 29.1, MCHC 31.8 L, RDW Std Deviation 46.3 H, RDW Coeff of Bijan 13.7, Plt Count 307, MPV 11.4, Immature Gran % (Auto) 0.700, Neut % (Auto) 88.5 H, Lymph % (Auto) 4.0 L, [place] % (Auto) 6.4, Eos % (Auto) 0.0, Baso % (Auto) 0.4, Absolute Neuts (auto) 17.6 H, Absolute Lymphs (auto) 0.80 L, Nucleated RBC % 0, Differential Comment COMMENT, Diff Path Review January foll 06/15/21 09:54: Sodium 142, Potassium 4.6, Chloride 105, Carbon Dioxide 26.0, Anion Gap 11, BUN 59 H, Creatinine 1.43 H, Estim Creat Clear Calc 39.80, Est GFR (MDRD) Af Amer 62, Est GFR (MDRD) Non-Af 51 L, BUN/Creatinine Ratio 41.3 H, Glucose 171 H, Calcium 9.6, Total Bilirubin 1.40 H, AST 83 H, ALT 99 H, Alkaline Phosphatase 61, Total Protein 7.7, Albumin 3.1 L, Globulin 4.6 H, Albumin/Globulin Ratio 0.7 L ABG Data ABG results: ABG 06/14/21 19:37 Specimen Type ART Sample Site R Brach pH 7.52 H Bicarbonate Actual 22.5 Total CO2 23 Base Excess 0 O2 Saturation 92 L O2 % 93 ABG pCO2 27.7 L ABG pO2 55 L Jonathan Test N/A O2 Delivery Device AIRVO Physical Exam Const alert Resp normal respiratory effort, no retractions, no use of accessory muscles and clear to auscultation bilaterally Cardio regular rate, regular rhythm, S1 normal heart sound and S2 normal heart sound GI normal to inspection, nondistended, normoactive bowel sounds, soft to palpation, non-tender and non-distended Assessment & Plan Assessment/Plan (1) COVID-19: (2) Severe acute respiratory syndrome: PLAN: 1. Acute COVID-19 pneumonia Onset was 06/01/2021 On dexamethasone and remdesivir and barcitinib Unvaccinated claiming that he was waiting on a more ideal vaccine. ongoing 2. Elevated creatinine Resolved Admission creatinine was 1.7. Last available creatinine was from 2019 was 1.28 at that time. I cannot qualify this is acute kidney injury. Patient did receive IV fluids. 3. Acute hypoxic respiratory failure: Back on BiPAP Change to therapeutic enoxaparin Continue furosemide wean as able Continue to reinforce use incentive spirometer and Acapella valve as able which is unable do so with the BiPAP. Continue encouraged him to listening to staff and further instructions to help him overall improvement eventually get out of the hospital. 4. VTE prophylaxis not indicated with current anticoagulation 5. Code status: Full Code. Changed on 06/12 from DNRCCA, DNI. Charges/Coding Visit Charges Inpatient E&M: 65011 Subs Hosp L2
[2021-06-15] MEDS: Aspirin 81 MG TAB.CHEW PO (20:50)
[2021-06-15] MEDS: Atorvastatin Calcium 20 MG Tablet PO (20:50)
[2021-06-16] VITALS (38 sets, daily range): BP systolic 92–124; BP diastolic 69–101; PULSE 56–94; RESP 14–29; TEMP 36.4–38.1; O2SAT 84–96
[2021-06-16 04:36] LABS: Absolute Lymphocyte Count 0.59 X10^3/uL (0.83-4.51); Absolute Neutrophil Count 8.7 X10^3/uL (2.0-7.7); Basophil# 0.01 X10^3/uL; Basophil% 0.1 % (0-1); Hematocrit 48.2 % (40-54); Hemoglobin 15.8 g/dL (13.0-16.5); Lymphocyte # 0.59 X10^3/ul (0.83-4.51); Mean Corp Hgb Conc 32.8 g/dL (32-36); Mean Corpuscular Volume 88.6 fL (80-94); Mean Platelet Vol. 11.5 fl (6.2-12.0); Monocyte# 0.44 X10^3/uL; Monocyte% 4.5 % (0-10); NRBC Flagged by Analyzer 0 % (0-5); Neutrophil # 8.68 X10^3/uL (2.7-7.7); POSITIVE DIFFERENTIAL YES; Platelet Count 192 K/mm3 (150-450); RBC Distribution Width CV 13.7 % (11.6-14.6); RBC Distribution Width SD 44.2 fl (35.1-43.9); Red Blood Count 5.44 M/mm3 (4.6-6.2); White Blood Count 9.8 K/mm3 (4.4-11.0)
[2021-06-16 04:51] LABS: Differential Indicated SCAN CRITERIA MET
[2021-06-16 04:57] LABS: ALB/GLOB Ratio 0.6 RATIO (0.9-2.4); AST(SGOT) 51 U/L (15-37); Alanine Aminotransfer ALT/SGPT 70 U/L (16-61); Albumin, Serum 2.4 g/dL (3.2-5.0); Alkaline Phosphatase 48 U/L (45-117); Anion Gap 3 (5-15); BUN 54 mg/dL (7-18); BUN/Creat Ratio 50.5 RATIO (10-20); Calcium,Total 8.5 mg/dL (8.5-10.1); Chloride 110 mmol/L (98-107); Creatinine, Serum 1.07 mg/dL (0.70-1.30); EST Glomerular Filtration Rate 71 mL/min (>60); Est Glom Filt Rate - Afr Amer 86 mL/min (>60); Globulin 4.3 g/dL (2.2-4.2); Glucose 191 mg/dL (74-106); Potassium 4.7 mmol/L (3.5-5.1); Protein, Total 6.7 g/dL (6.4-8.2); Sodium Level 146 mmol/L (136-145)
[2021-06-16] MEDS: TITRATION PARAMETER CHANGE 1 EACH IV (05:13)
--- NOTE | 2021-06-16 10:00 | PCM.PN.INT ---
Assessment & Plan Assessment/Plan (1) Acute respiratory failure with hypoxia: (2) COVID-19: (3) TRANG (acute kidney injury): PLAN: RECOMMENDATIONS: 1. Completed course of remdesivir. Okay to continue Decadron and barcitinib. 2. Continue combination of BiPAP/Airvo heated high flow as tolerated. 3. Continue Lovenox twice daily as ordered. 4. Encourage prone positioning. 5. Encourage incentive spirometer use and mobilize patient as tolerated. IMPRESSIONS: 1. Acute hypoxic respiratory failure secondary to COVID-19 pneumonia The patient has completed a treatment course of remdesivir and remains on Decadron and baricitinib, which will be continued as well. His respiratory status is still somewhat tenuous. Plan to continue a combination of BiPAP and heated high flow oxygen as tolerated. Goal to maintain oxygen saturations at or above 90%. Awake prone positioning was again encouraged. Continue bronchodilator therapy. Encourage incentive spirometer use and mobilize patient as tolerated. 2. TRANG Improved. Likely prerenal in etiology and related to overdiuresis. Diuretics have been discontinued at this time. Continue to monitor urine output. No current indication for renal replacement therapy. 3. Generalized anxiety Okay to continue Precedex for symptom relief. 4. Obesity/advanced age/asthma/hypertension/chronic pain syndrome/unvaccinated state Complicates care, management, recovery and prognosis. Continue bronchodilator therapy. This note was generated with [employer] dictation software. It may contain incorrect words, spelling, and punctuation that were not noted in checking the note before signing. Subjective Subjective The patient was seen and examined at the bedside this morning. Events from the last 24 hours have been reviewed. The patient is currently afebrile, hemodynamically stable and maintaining appropriate oxygen saturations on Airvo heated high flow with an FiO2 requirement of 90% and flow rate of 60 L/min. He is currently documented to be overall net -230 mL for the hospital admission. He appears more relaxed on a Precedex infusion. He remains on Decadron and Lovenox twice daily, along with a treatment course of baricitinib. Objective Data Objective Data The patient's most recent lab work, culture data and imaging studies have all been personally reviewed. Vital Signs: Vital Signs Temp Pulse Resp BP Pulse Ox 98.1 F 58 L 15 115/76 90 06/16/21 04:00 06/16/21 08:00 06/16/21 07:07 06/16/21 07:00 06/16/21 07:07 Oxygen Flow Rate (L/min) 60 Oxygen Delivery Method Airvo Weight: 100.516 kg Body Mass Index (BMI) 37.8 Intake & Output: Intake and Output for Last 24 Hours 06/14/21 06/15/21 06/16/21 23:59 23:59 23:59 Intake Total 360 / 372 742.2 / 754.6 124.8 / 124.8 Output Total 1850 / 2150 1825 / 1825 285 / 285 Balance -1490 / -1778 -1082.8 / -1070.4 -160.2 / -160.2 Medical Nutrition Assessment Dietitian: Malnutrition Criteria Met Start: 06/09/21 11:16 Freq: Status: Active Protocol: Document 06/13/21 10:57 SLA (Rec: 06/13/21 10:57 SLA [id number]) Nutrition Malnutrition Evidence of Malnutrition Exists Yes Malnutrition (severe): Acute Illness/Injury Evidenced By Suboptimal Energy Intake ( Severe),Weight Loss (Severe) Intake Problem Inadequate Oral Intake Etiology related to worsening resp status Signs/Symptoms as evidenced by no diet ordered and 8.1% wt loss since adm (06/08) Status Active Problem Clinical Problem Acute Disease or Injury Related Malnutrition Etiology Severe pro/dakota malnutrition in the context of acute illness/ infection related to poor appetite and inability to take adequate PO nutrition Signs/Symptoms as evidenced by 8.1% wt loss and inadequate po intake to meet estimated nutritional needs x >5 days. Status Active Problem Recommendation Dietitian Recommendations/Changes When intubated, rec Vital AF 1 .2 at goal rate 65 ml/hr with 100 ml free water every 4 hours to provide ~ 1872 [place]/ 117 gm pro/ 1865 ml free water per day. Would start tf at 25 ml/hr and increase by 20 ml every 8-10 hrs as pt tolerates until goal rate achieved. Lab / Micro Data Attestation: I reviewed the patient's lab results. Result Diagrams: 06/16/21 04:15 06/16/21 04:15 Labs: Laboratory Results - last 24 hr 06/15/21 09:54: WBC 19.9 H, RBC 6.23 H, Hgb 18.1 H*, Hct 56.9 H, MCV 91.3, MCH 29.1, MCHC 31.8 L, RDW Std Deviation 46.3 H, RDW Coeff of B[place] 13.7, Plt Count 307, MPV 11.4, Immature Gran % (Auto) 0.700, Neut % (Auto) 88.5 H, Lymph % (Auto) 4.0 L, [place] % (Auto) 6.4, Eos % (Auto) 0.0, Baso % (Auto) 0.4, Absolute Neuts (auto) 17.6 H, Absolute Lymphs (auto) 0.80 L, Nucleated RBC % 0, Differential Comment COMMENT, Diff Path Review January06/15/21 09:54: Sodium 142, Potassium 4.6, Chloride 105, Carbon Dioxide 26.0, Anion Gap 11, BUN 59 H, Creatinine 1.43 H, Estim Creat Clear Calc 39.80, Est GFR (MDRD) Af Amer 62, Est GFR (MDRD) Non-Af 51 L, BUN/Creatinine Ratio 41.3 H, Glucose 171 H, Calcium 9.6, Total Bilirubin 1.40 H, AST 83 H, ALT 99 H, Alkaline Phosphatase 61, Total Protein 7.7, Albumin 3.1 L, Globulin 4.6 H, Albumin/Globulin Ratio 0.7 L 06/16/21 04:15: WBC 9.8, RBC 5.44, Hgb 15.8, Hct 48.2, MCV 88.6, MCH 29.0, MCHC 32.8, RDW Std Deviation 44.2 H, RDW Coeff of [place] 13.7, Plt Count 192, MPV 11.5, Immature Gran % (Auto) 0.400, Neut % (Auto) 89.0 H, Lymph % (Auto) 6.0 L, [place] % (Auto) 4.5, Eos % (Auto) 0.0, Baso % (Auto) 0.1, Absolute Neuts (auto) 8.7 H, Absolute Lymphs (auto) 0.59 L, Nucleated RBC % 0 06/16/21 04:15: Sodium 146 H, Potassium 4.7, Chloride 110 H, Carbon Dioxide 33.0 H, Anion Gap 3 L, BUN 54 H, Creatinine 1.07, Estim Creat Clear Calc 53.20, Est GFR (MDRD) Af Amer 86, Est GFR (MDRD) Non-Af 71, BUN/Creatinine Ratio 50.5 H, Glucose 191 H, Calcium 8.5, Total Bilirubin 1.00, AST 51 H, ALT 70 H, Alkaline Phosphatase 48, Total Protein 6.7, Albumin 2.4 L, Globulin 4.3 H, Albumin/Globulin Ratio 0.6 L Physical Exam Const alert Constitutional Narrative: Sitting in bedside recliner. Airvo currently in place. General Appearance: cooperative Nutritional Appearance: obese HEENT normocephalic and head/scalp atraumatic Eyes PERRL, EOMs intact bilaterally and conjunctivae normal Neck supple General: trachea midline Chest inspection of chest normal Resp Effort and Inspection: tachypneic Auscultation: diminished lung sounds; Negative for rales, rhonchi or wheezes Cardio S1 normal heart sound and S2 normal heart sound Rate: bradycardia GI normal to inspection, nondistended, normoactive bowel sounds Extremity no clubbing, cyanosis or edema Skin no rashes or lesions noted Neuro CN's II-XII intact bilaterally, moves all extremities and no focal motor deficits Psych cooperative Charges/Coding Visit Charges Inpatient E&M: 81597 Subs Hosp L3
[2021-06-16] MEDS: dexAMETHasone 2 MG TABLET 6 MG PO (11:39)
[2021-06-16] MEDS: 0.9% Saline Lock 10 ML Syringe IV (11:39)
[2021-06-16] MEDS: dilTIAZem CD 240 MG Capsule PO (11:40)
[2021-06-16] MEDS: Enoxaparin 100 MG/ML Syringe SC ×2 (11:40→20:31)
[2021-06-16] MEDS: Pantoprazole Sodium 40 MG Tablet PO (11:40)
[2021-06-16] MEDS: Multivitamin (Healthy Eyes) Capsule 1 CAP PO (11:40)
[2021-06-16] MEDS: Magnesium Chloride 64 MG Delay Rel.Tablet 128 MG PO (11:43)
[2021-06-16] MEDS: Senna/Docusate Sodium 1 Tablet 2 TABLET PO ×2 (11:44→20:31)
[2021-06-16] MEDS: Polyethylene Glycol 3350 17 GM PACKET PO (11:44)
--- NOTE | 2021-06-16 12:22 | PN.HOSP_ITS ---
Subjective Subjective Patient was seen and examined. He remains on Airvo. He is on 60 L at FiO2 90%. Objective Data Objective Data Vital Signs: Vital Signs Temp Pulse Resp BP Pulse Ox 98.1 F 77 18 115/76 90 06/16/21 04:00 06/16/21 12:05 06/16/21 12:05 06/16/21 07:00 06/16/21 12:05 Oxygen Flow Rate (L/min) 60 Oxygen Delivery Method Airvo Weight: 100.516 kg Body Mass Index (BMI) 37.8 Intake & Output: Intake and Output for Last 24 Hours 06/14/21 06/15/21 06/16/21 23:59 23:59 23:59 Intake Total 360 / 372 742.2 / 754.6 124.8 / 124.8 Output Total 1850 / 2150 1825 / 1825 285 / 285 Balance -1490 / -1778 -1082.8 / -1070.4 -160.2 / -160.2 Medical Nutrition Assessment Dietitian: Malnutrition Criteria Met Start: 06/09/21 11:16 Freq: Status: Active Protocol: Document 06/16/21 10:52 AG (Rec: 06/16/21 10:52 [id number]) Nutrition Malnutrition Evidence of Malnutrition Exists Yes Malnutrition (severe): Acute Illness/Injury Evidenced By Suboptimal Energy Intake ( Severe),Weight Loss (Severe) Intake Problem Inadequate Oral Intake Etiology r/t resp. failure Signs/Symptoms as evidenced by estimated PO intake meeting <50% of estimated nutritional needs >5 days Status Active Problem Clinical Problem Altered Nutrient-Related Laboratory Values Etiology - Signs/Symptoms - Status Inactive Problem Acute Disease or Injury Related Malnutrition Etiology severe acute malnutrition r/t inadequate energy intake w/ increased nutrient needs w/ COVID-19 Signs/Symptoms as evidenced by estimated PO intake meeting <50% of estimated nutritional needs >5 days; unintentional wt loss of 1.9kg/2% [employer] Status Active Problem Recommendation Dietitian Recommendations/Changes Continue regular diet- texture /consistency per STUDENT LIFE COORDINATOR. Will continue Ensure w/ meals for additional calories/ protein if consumed. Lab / Micro Data Result Diagrams: 06/16/21 04:15 06/16/21 04:15 Labs: Laboratory Results - last 24 hr 06/16/21 04:15: WBC 9.8, RBC 5.44, Hgb 15.8, Hct 48.2, MCV 88.6, MCH 29.0, MCHC 32.8, RDW Std Deviation 44.2 H, RDW Coeff of Bijan 13.7, Plt Count 192, MPV 11.5, Immature Gran % (Auto) 0.400, Neut % (Auto) 89.0 H, Lymph % (Auto) 6.0 L, [place] % (Auto) 4.5, Eos % (Auto) 0.0, Baso % (Auto) 0.1, Absolute Neuts (auto) 8.7 H, Absolute Lymphs (auto) 0.59 L, Nucleated RBC % 0 06/16/21 04:15: Sodium 146 H, Potassium 4.7, Chloride 110 H, Carbon Dioxide 33.0 H, Anion Gap 3 L, BUN 54 H, Creatinine 1.07, Estim Creat Clear Calc 53.20, Est GFR (MDRD) Af Amer 86, Est GFR (MDRD) Non-Af 71, BUN/Creatinine Ratio 50.5 H, Glucose 191 H, Calcium 8.5, Total Bilirubin 1.00, AST 51 H, ALT 70 H, Alkaline Phosphatase 48, Total Protein 6.7, Albumin 2.4 L, Globulin 4.3 H, Albumin/Globulin Ratio 0.6 L Physical Exam Narrative Physical exam: General: Alert, Oriented x3, Cooperative, on Airvo HEENT: Atraumatic Oral: Dry Mucosa Neck: Supple Lungs: Diminished to auscultation, crackles+ Cardiovascular: HS I+II, regular, no murmurs Abdomen: Bowel Sounds Present, Soft, Non Tender Extremities: Bilateral leg edema Assessment & Plan Assessment/Plan (1) Severe malnutrition: (2) Acute respiratory failure with hypoxia: (3) Severe acute respiratory syndrome: (4) TRANG (acute kidney injury): PLAN: 1. Acute hypoxic respiratory failure secondary to acute COVID-19 pneumonia Patient is Airvo. We will continue same, wean off for SPO2 more than 94% 2. Acute COVID-19 pneumonia, CVA with respiratory failure Patient is unvaccinated; symptoms started on 06/01/2021 Continue on dexamethasone and remdesivir and barcitinib 3. Severe protein calorie malnutrition, instructor private consulted, will follow up on recommendations 4. Elevated creatinine secondary to dehydration, resolved, creatinine now is 1.07 Charges/Coding Visit Charges Inpatient E&M: 26230 Subs Hosp L3
[2021-06-16 12:36] LABS: Pathologist Review Reviewed
[2021-06-16] MEDS: Aspirin 81 MG TAB.CHEW PO (20:31)
[2021-06-16] MEDS: Atorvastatin Calcium 20 MG Tablet PO (20:31)
--- NOTE | 2021-06-16 20:54 | NURSING ---
Pt is agitated and argues about all requested procedures and positioning, but does comply. Pt laying on side at this time, as requested by nurse, with pillows placed for comfort. Improved oxygenation with repositioning from mid 80's to low 90's. Increased precedex to aide pt to rest. Will continue to monitor for S&S of delirium.
[2021-06-17] VITALS (32 sets, daily range): BP systolic 96–182; BP diastolic 67–108; PULSE 58–96; RESP 16–28; TEMP 36.6–36.9; O2SAT 88–95
[2021-06-17] MEDS: 0.9% Saline Lock 10 ML Syringe IV (04:50)
[2021-06-17 05:20] LABS: ALB/GLOB Ratio 0.5 RATIO (0.9-2.4); AST(SGOT) 50 U/L (15-37); Alanine Aminotransfer ALT/SGPT 65 U/L (16-61); Albumin, Serum 2.3 g/dL (3.2-5.0); Alkaline Phosphatase 49 U/L (45-117); Anion Gap 5 (5-15); BUN 56 mg/dL (7-18); BUN/Creat Ratio 47.5 RATIO (10-20); Calcium,Total 8.5 mg/dL (8.5-10.1); Chloride 110 mmol/L (98-107); Creatinine, Serum 1.18 mg/dL (0.70-1.30); EST Glomerular Filtration Rate 63 mL/min (>60); Est Glom Filt Rate - Afr Amer 77 mL/min (>60); Estimated Creatinine Clearance 48.24 ml/min; Globulin 4.2 g/dL (2.2-4.2); Glucose 192 mg/dL (74-106); Potassium 4.7 mmol/L (3.5-5.1); Protein, Total 6.5 g/dL (6.4-8.2); Sodium Level 145 mmol/L (136-145)
[2021-06-17 05:25] LABS: Absolute Lymphocyte Count 0.37 X10^3/uL (0.83-4.51); Absolute Neutrophil Count 9.1 X10^3/uL (2.0-7.7); Basophil# 0.01 X10^3/uL; Basophil% 0.1 % (0-1); Hematocrit 47.2 % (40-54); Hemoglobin 15.6 g/dL (13.0-16.5); Lymphocyte # 0.37 X10^3/ul (0.83-4.51); Lymphocyte % 3.7 % (19-41); Mean Corp Hgb Conc 33.1 g/dL (32-36); Mean Corpuscular Hgb 29.5 pg (27.0-32.0); Mean Corpuscular Volume 89.2 fL (80-94); Mean Platelet Vol. 12.1 fl (6.2-12.0); Monocyte# 0.42 X10^3/uL; Monocyte% 4.2 % (0-10); NRBC Flagged by Analyzer 0 % (0-5); Neutrophil # 9.07 X10^3/uL (2.7-7.7); Neutrophil % 91.5 % (47-70); POSITIVE DIFFERENTIAL YES; Platelet Count 202 K/mm3 (150-450); RBC Distribution Width CV 13.7 % (11.6-14.6); RBC Distribution Width SD 44.6 fl (35.1-43.9); Red Blood Count 5.29 M/mm3 (4.6-6.2); White Blood Count 9.9 K/mm3 (4.4-11.0)
[2021-06-17 05:35] LABS: Differential Indicated SCAN CRITERIA MET
[2021-06-17] MEDS: TITRATION PARAMETER CHANGE 1 EACH IV (06:07)
[2021-06-17] MEDS: dilTIAZem CD 240 MG Capsule PO (09:06)
[2021-06-17] MEDS: Magnesium Chloride 64 MG Delay Rel.Tablet 128 MG PO (09:06)
[2021-06-17] MEDS: Senna/Docusate Sodium 1 Tablet 2 TABLET PO ×2 (09:06→21:34)
[2021-06-17] MEDS: dexAMETHasone 2 MG TABLET 6 MG PO (09:06)
[2021-06-17] MEDS: Multivitamin (Healthy Eyes) Capsule 1 CAP PO (09:06)
[2021-06-17] MEDS: Polyethylene Glycol 3350 17 GM PACKET PO (09:06)
[2021-06-17] MEDS: Pantoprazole Sodium 40 MG Tablet PO (09:07)
[2021-06-17] MEDS: Enoxaparin 100 MG/ML Syringe SC ×2 (09:07→21:32)
--- NOTE | 2021-06-17 10:03 | PCM.PN.HOSP ---
Subjective Subjective Patient was seen and examined. He remains on elbow. He has been very rude to staff. No other acute events overnight. Objective Data Objective Data Vital Signs: Vital Signs Temp Pulse Resp BP Pulse Ox 98.4 F 66 26 H 128/83 H 93 06/17/21 04:00 06/17/21 07:00 06/17/21 07:00 06/17/21 07:00 06/17/21 10:01 Oxygen Flow Rate (L/min) 60 Oxygen Delivery Method Airvo Weight: 101.378 kg Body Mass Index (BMI) 37.8 Intake & Output: Intake and Output for Last 24 Hours 06/15/21 06/16/21 06/17/21 23:59 23:59 23:59 Intake Total 742.2 / 754.6 449.36 / 584.46 221.06 / 221.06 Output Total 1825 / 1825 735 / 1235 800 / 800 Balance -1082.8 / -1070.4 -285.64 / -650.54 -578.94 / -578.94 Medical Nutrition Assessment Dietitian: Malnutrition Criteria Met Start: 06/09/21 11:16 Freq: Status: Active Protocol: Document 06/16/21 10:52 AG (Rec: 06/16/21 10:52 [id number]) Nutrition Malnutrition Evidence of Malnutrition Exists Yes Malnutrition (severe): Acute Illness/Injury Evidenced By Suboptimal Energy Intake ( Severe),Weight Loss (Severe) Intake Problem Inadequate Oral Intake Etiology r/t resp. 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 Will continue Ensure w/ meals for additional calories/ protein if consumed. Lab / Micro Data Result Diagrams: 06/17/21 00:45 06/17/21 04:55 Labs: Laboratory Results - last 24 hr 06/15/21 09:54: Diff Path Review Reviewed 06/17/21 00:45: WBC 9.9, RBC 5.29, Hgb 15.6, Hct 47.2, MCV 89.2, MCH 29.5, MCHC 33.1, RDW Std Deviation 44.6 H, RDW Coeff of Bijan 13.7, Plt Count 202, MPV 12.1 H, Immature Gran % (Auto) 0.500, Neut % (Auto) 91.5 H, Lymph % (Auto) 3.7 L, [place] % (Auto) 4.2, Eos % (Auto) 0.0, Baso % (Auto) 0.1, Absolute Neuts (auto) 9.1 H, Absolute Lymphs (auto) 0.37 L, Nucleated RBC % 0 06/17/21 04:55: Sodium 145, Potassium 4.7, Chloride 110 H, Carbon Dioxide 30.0, Anion Gap 5, BUN 56 H, Creatinine 1.18, Estim Creat Clear Calc 48.24, Est GFR (MDRD) Af Amer 77, Est GFR (MDRD) Non-Af 63, BUN/Creatinine Ratio 47.5 H, Glucose 192 H, Calcium 8.5, Total Bilirubin 0.90, AST 50 H, ALT 65 H, Alkaline Phosphatase 49, Total Protein 6.5, Albumin 2.3 L, Globulin 4.2, Albumin/Globulin Ratio 0.5 L Physical Exam Narrative Physical exam: General: Alert, Oriented x3, Cooperative, on Airvo HEENT: Atraumatic Oral: Dry Mucosa Neck: Supple Lungs: Diminished to auscultation, crackles+ Cardiovascular: HS I+II, regular, no murmurs Abdomen: Bowel Sounds Present, Soft, Non Tender Extremities: Bilateral leg edema Assessment & Plan Assessment/Plan (1) Severe malnutrition: (2) Acute respiratory failure with hypoxia: (3) Severe acute respiratory syndrome: (4) TRANG (acute kidney injury): PLAN: 1. Acute hypoxic respiratory failure secondary to acute COVID-19 pneumonia Patient is Airvo -60 L, 93% FiO2. Wean off for SPO2 more than 94% 2. Acute COVID-19 pneumonia, CVA with respiratory failure Patient is unvaccinated; symptoms started on 06/01/2021 Completed dexamethasone and remdesivir Continue on Barcitinib until 06/25/21 3. Acute delirium, present in this admission, remains on Precedex drip, will wean off 4. Severe protein calorie malnutrition, fun house attendant consulted, will follow up on recommendations 5. Elevated creatinine secondary to dehydration, resolved, creatinine now is 1.07 Charges/Coding Visit Charges Inpatient E&M: 98082 Subs Hosp L3
--- NOTE | 2021-06-17 11:02 | PN.CC_ITS ---
Assessment & Plan Assessment/Plan (1) Acute respiratory failure with hypoxia: (2) COVID-19: (3) TRANG (acute kidney injury): PLAN: RECOMMENDATIONS: 1. Completed course of remdesivir and Decadron. Okay to continue barcitinib. 2. Continue Airvo heated high flow as tolerated. 3. Continue Lovenox twice daily as ordered. 4. Encourage prone positioning. 5. Encourage incentive spirometer use and mobilize patient as tolerated. IMPRESSIONS: 1. Acute hypoxic respiratory failure secondary to COVID-19 pneumonia The patient has completed a treatment course of remdesivir and Decadron. The patient will remain on varus admit to complete a treatment course. His respiratory status is still somewhat tenuous. Plan to continue heated high flow oxygen as tolerated. Goal to maintain oxygen saturations at or above 90%. Awake prone positioning was again encouraged. Continue bronchodilator therapy. Encourage incentive spirometer use and mobilize patient as tolerated. 2. Generalized anxiety Attempt to wean from Precedex therapy today and restart BuSpar scheduled twice daily. 3. Obesity/advanced age/asthma/hypertension/chronic pain syndrome/unvaccinated state Complicates care, management, recovery and prognosis. Continue bronchodilator therapy. This note was generated with [employer] dictation software. It may contain incorrect words, spelling, and punctuation that were not noted in checking the note before signing. Subjective Subjective The patient was seen and examined at the bedside this morning. Events from the last 24 hours have been reviewed. The patient is currently afebrile, hemodynami alexsander stable and maintaining appropriate oxygen saturations on Airvo heated high flow with an FiO2 requirement of 93% and flow rate of 60 L/min. He is currently documented to be overall net -890 mL for the hospital admission. The patient remains on twice daily Lovenox and baricitinib. Objective Data Objective Data The patient's most recent lab work, culture data and imaging studies have all been personally reviewed. Vital Signs: Vital Signs Temp Pulse Resp BP Pulse Ox 98.4 F 59 L 26 H 128/83 H 93 06/17/21 04:00 06/17/21 08:00 06/17/21 07:00 06/17/21 07:00 06/17/21 10:01 Oxygen Flow Rate (L/min) 60 Oxygen Delivery Method Airvo Weight: 101.378 kg Body Mass Index (BMI) 37.8 Intake & Output: Intake and Output for Last 24 Hours 06/15/21 06/16/21 06/17/21 23:59 23:59 23:59 Intake Total 742.2 / 754.6 449.36 / 584.46 265.44 / 265.44 Output Total 1825 / 1825 735 / 1235 800 / 800 Balance -1082.8 / -1070.4 -285.64 / -650.54 -534.56 / -534.56 Medical Nutrition Assessment Dietitian: Malnutrition Criteria Met Start: 06/09/21 11:16 Freq: Status: Active Protocol: Document 06/16/21 10:52 AG (Rec: 06/16/21 10:52 AG [id number]) Nutrition Malnutrition Evidence of Malnutrition Exists Yes Malnutrition (severe): Acute Illness/Injury Evidenced By Suboptimal Energy Intake ( Severe),Weight Loss (Severe) Intake Problem Inadequate Oral Intake Etiology r/t resp. failure Signs/Symptoms as evidenced by estimated PO intake meeting <50% of estimated nutritional needs >5 days Status Active Problem Clinical Problem Altered Nutrient-Related Laboratory Values Etiology - Signs/Symptoms - Status Inactive Problem Acute Disease or Injury Related Malnutrition Etiology severe acute malnutrition r/t inadequate energy intake w/ increased nutrient needs w/ COVID-19 Signs/Symptoms as evidenced by estimated PO intake meeting <50% of estimated nutritional needs >5 days; unintentional wt loss of 1.9kg/2% CT SCAN TECH Status Active Problem Recommendation Dietitian Recommendations/Changes Continue regular diet- texture /consistency per PROPULSION MOTOR AND GENERATOR REPAIRER. Will continue Ensure w/ meals for additional calories/ protein if consumed. Lab / Micro Data Attestation: I reviewed the patient's lab results. Result Diagrams: 06/17/21 00:45 06/17/21 04:55 Labs: Laboratory Results - last 24 hr 06/15/21 09:54: Diff Path Review Reviewed 06/17/21 00:45: WBC 9.9, RBC 5.29, Hgb 15.6, Hct 47.2, MCV 89.2, MCH 29.5, MCHC 33.1, RDW Std Deviation 44.6 H, RDW Coeff of Bijan 13.7, Plt Count 202, MPV 12.1 H , Immature Gran % (Auto) 0.500, Neut % (Auto) 91.5 H, Lymph % (Auto) 3.7 L, [place] % (Auto) 4.2, Eos % (Auto) 0.0, Baso % (Auto) 0.1, Absolute Neuts (auto) 9.1 H, Absolute Lymphs (auto) 0.37 L, Nucleated RBC % 0 06/17/21 04:55: Sodium 145, Potassium 4.7, Chloride 110 H, Carbon Dioxide 30.0, Anion Gap 5, BUN 56 H, Creatinine 1.18, Estim Creat Clear Calc 48.24, Est GFR (MDRD) Af Amer 77, Est GFR (MDRD) Non-Af 63, BUN/Creatinine Ratio 47.5 H, Glucose 192 H, Calcium 8.5, Total Bilirubin 0.90, AST 50 H, ALT 65 H, Alkaline Phosphatase 49, Total Protein 6.5, Albumin 2.3 L, Globulin 4.2, Albumin/Globulin Ratio 0.5 L Physical Exam Const alert Constitutional Narrative: Sitting in bedside recliner. Airvo currently in place. General Appearance: cooperative Nutritional Appearance: obese HEENT normocephalic and head/scalp atraumatic Eyes PERRL, EOMs intact bilaterally and conjunctivae normal Neck supple General: trachea midline Chest inspection of chest normal Resp Effort and Inspection: tachypneic Auscultation: diminished lung sounds; Negative for rales, rhonchi or wheezes Cardio regular rate, regular rhythm, S1 normal heart sound and S2 normal heart sound GI normal to inspection, nondistended, normoactive bowel sounds Extremity no clubbing, cyanosis or edema Skin no rashes or lesions noted Neuro CN's II-XII intact bilaterally, moves all extremities and no focal motor deficits Psych cooperative Charges/Coding Visit Charges Inpatient E&M: 70532 Subs Hosp L3
[2021-06-17] MEDS: busPIRone 5 MG Tablet 10 MG PO ×2 (11:53→21:33)
[2021-06-17] MEDS: Aspirin 81 MG TAB.CHEW PO (21:33)
[2021-06-17] MEDS: MELATONIN 3 MG TABLET PO (21:33)
[2021-06-17] MEDS: Atorvastatin Calcium 20 MG Tablet PO (21:33)
[2021-06-18] VITALS (36 sets, daily range): BP systolic 126–169; BP diastolic 69–108; PULSE 46–112; RESP 16–28; TEMP 36.5–37.4; O2SAT 85–98
--- NOTE | 2021-06-18 03:01 | CPS ---
Patient refusing BiPAP. NRB 15L O2 placed overtop of AirVo.
[2021-06-18 06:25] LABS: Absolute Lymphocyte Count 0.64 X10^3/uL (0.83-4.51); Absolute Neutrophil Count 14.4 X10^3/uL (2.0-7.7); Basophil# 0.03 X10^3/uL; Basophil% 0.2 % (0-1); Hematocrit 49.2 % (40-54); Hemoglobin 16.2 g/dL (13.0-16.5); Lymphocyte # 0.64 X10^3/ul (0.83-4.51); Mean Corp Hgb Conc 32.9 g/dL (32-36); Mean Corpuscular Hgb 29.5 pg (27.0-32.0); Mean Corpuscular Volume 89.6 fL (80-94); Mean Platelet Vol. 12.5 fl (6.2-12.0); Monocyte# 0.85 X10^3/uL; Monocyte% 5.3 % (0-10); NRBC Flagged by Analyzer 0 % (0-5); Neutrophil # 14.37 X10^3/uL (2.7-7.7); Neutrophil % 89.4 % (47-70); Platelet Count 254 K/mm3 (150-450); RBC Distribution Width CV 13.6 % (11.6-14.6); RBC Distribution Width SD 44.3 fl (35.1-43.9); Red Blood Count 5.49 M/mm3 (4.6-6.2); White Blood Count 16.1 K/mm3 (4.4-11.0)
[2021-06-18 06:34] LABS: Anion Gap 2 (5-15); BUN 47 mg/dL (7-18); BUN/Creat Ratio 43.5 RATIO (10-20); Calcium,Total 8.9 mg/dL (8.5-10.1); Chloride 110 mmol/L (98-107); Creatinine, Serum 1.08 mg/dL (0.70-1.30); EST Glomerular Filtration Rate 70 mL/min (>60); Est Glom Filt Rate - Afr Amer 85 mL/min (>60); Glucose 163 mg/dL (74-106); Potassium 4.8 mmol/L (3.5-5.1); Sodium Level 143 mmol/L (136-145)
--- NOTE | 2021-06-18 06:47 | CPS ---
pt refusing to use bipap, currently using airvo + NRB
--- NOTE | 2021-06-18 06:56 | PCM.PN.INT ---
Assessment & Plan Assessment/Plan (1) Acute respiratory failure with hypoxia: (2) COVID-19: (3) TRANG (acute kidney injury): PLAN: RECOMMENDATIONS: 1. Completed course of remdesivir and Decadron. Okay to continue barcitinib. 2. Continue Airvo heated high flow as tolerated. 3. Continue Lovenox twice daily as ordered. 4. Encourage prone positioning. 5. Encourage incentive spirometer use and mobilize patient as tolerated. IMPRESSIONS: 1. Acute hypoxic respiratory failure secondary to COVID-19 pneumonia The patient has completed a treatment course of remdesivir and Decadron. The patient will remain on varus admit to complete a treatment course. His respiratory status is still somewhat tenuous. Plan to continue heated high flow oxygen as tolerated. Goal to maintain oxygen saturations at or above 90%. Awake prone positioning was again encouraged. Continue bronchodilator therapy. Encourage incentive spirometer use and mobilize patient as tolerated. 2. Generalized anxiety Continue BuSpar scheduled twice daily. 3. Obesity/advanced age/asthma/hypertension/chronic pain syndrome/unvaccinated state Complicates care, management, recovery and prognosis. Continue bronchodilator therapy. This note was generated with [employer] dictation software. It may contain incorrect words, spelling, and punctuation that were not noted in checking the note before signing. Subjective Subjective The patient was seen and examined at the bedside this morning. Events from the last 24 hours have been reviewed. The patient is currently afebrile, hemodynamically stable and maintaining appropriate oxygen saturations on Airvo heated high flow with an FiO2 requirement of 93% and flow rate of 60 L/min, plus a nonrebreather. The patient has been refusing BiPAP therapy and is no longer willing to prone himself. He is currently documented to be overall net -1.8 L for the hospital admission. The patient remains on twice daily Lovenox and baricitinib. White count is elevated this morning at 16,000. Objective Data Objective Data The patient's most recent lab work, culture data and imaging studies have all been personally reviewed. Vital Signs: Vital Signs Temp Pulse Resp BP Pulse Ox 98.1 F 94 25 H 155/90 H 92 06/18/21 04:00 06/18/21 06:46 06/18/21 06:46 06/18/21 06:00 06/18/21 06:46 Oxygen Flow Rate (L/min) 60 Oxygen Delivery Method Airvo Weight: 102.013 kg Body Mass Index (BMI) 37.8 Intake & Output: Intake and Output for Last 24 Hours 06/16/21 06/17/21 06/18/21 23:59 23:59 23:59 Intake Total 449.36 / 584.46 1118.76 / 1118.76 Output Total 735 / 1235 1974 650 / 650 Balance -285.64 / -650.54 -856.24 / -856.24 -650 / -650 Medical Nutrition Assessment Dietitian: Malnutrition Criteria Met Start: 06/09/21 11:16 Freq: Status: Active Protocol: Document 06/17/21 14:23 RMA (Rec: 06/17/21 14:23 RMA [id number]) Nutrition Malnutrition Evidence of Malnutrition Exists Yes Malnutrition (severe): Acute Illness/Injury Evidenced By Suboptimal Energy Intake ( Severe),Weight Loss (Severe) Intake Problem Inadequate Oral Intake Etiology r/t resp. 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 Will add 120ml ensure enlive TID w/ meals and ensure pudding BID w/ meals. Adjust ONS and restrict diet as needed. Lab / Micro Data Attestation: I reviewed the patient's lab results. Result Diagrams: 06/18/21 05:50 06/18/21 05:50 Labs: Laboratory Results - last 24 hr 06/18/21 05:50: WBC 16.1 H, RBC 5.49, Hgb 16.2, Hct 49.2, MCV 89.6, MCH 29.5, MCHC 32.9, RDW Std Deviation 44.3 H, RDW Coeff of Bijan 13.6, Plt Count 254, MPV 12.5 H, Immature Gran % (Auto) 1.100 H, Neut % (Auto) 89.4 H, Lymph % (Auto) 4.0 L, [place] % (Auto) 5.3, Eos % (Auto) 0.0, Baso % (Auto) 0.2, Absolute Neuts (auto) 14.4 H, Absolute Lymphs (auto) 0.64 L, Nucleated RBC % 0 06/18/21 05:50: Sodium 143, Potassium 4.8, Chloride 110 H, Carbon Dioxide 31.0, Anion Gap 2 L, BUN 47 H, Creatinine 1.08, Estim Creat Clear Calc 52.70, Est GFR (MDRD) Af Amer 85, Est GFR (MDRD) Non-Af 70, BUN/Creatinine Ratio 43.5 H, Glucose 163 H, Calcium 8.9 Physical Exam Const alert Constitutional Narrative: Currently sitting upright in bed with marginal oxygen saturations on Airvo. General Appearance: cooperative Nutritional Appearance: obese HEENT normocephalic and head/scalp atraumatic Eyes PERRL, EOMs intact bilaterally and conjunctivae normal Neck supple General: trachea midline Chest inspection of chest normal Resp Effort and Inspection: tachypneic Auscultation: rales and diminished lung sounds; Negative for rhonchi or wheezes Cardio regular rate, regular rhythm, S1 normal heart sound and S2 normal heart sound GI normal to inspection, nondistended, normoactive bowel sounds Extremity no clubbing, cyanosis or edema Skin no rashes or lesions noted Neuro CN's II-XII intact bilaterally, moves all extremities and no focal motor deficits Psych cooperative Psych Narrative: Odd affect. Charges/Coding Visit Charges Inpatient E&M: 04795 Subs Hosp L3
--- NOTE | 2021-06-18 06:59 | RAD_ITS ---
STUDY: X-RAY CHEST REASON FOR EXAM: Male, 76 years old. CHEST PAIN Respiratory Failure TECHNIQUE: XR Chest 1 View COMPARISON: 06.13.21 FINDINGS: There is no demonstrated pleural abnormality. There is bilateral infiltrate. There is a right PICC line. Normal size heart. Normal mediastinum and samira. Normal visualized pulmonary arteries. There is atherosclerotic calcification of the aortic arch with tortuosity. There are diffuse degenerative changes of the visualized thoracic spine. There is degenerative osteoarthritis of the bilateral shoulders. There is no demonstrated abnormality of the visualized soft tissue structures of the upper abdomen. RAD/Chest 1 View (Portable) IMPRESSION: Bilateral pneumonia. Electronically Signed: Ned Manzano MD at 8:28 EDT , Service support ,
[2021-06-18 08:03] LABS: BNP,B-Type NATRIURETIC PEPTIDE 39.4 pg/mL (0-100)
[2021-06-18 08:52] LABS: Procalcitonin 0.12 ng/mL (0.00-0.09)
[2021-06-18] MEDS: busPIRone 5 MG Tablet 10 MG PO ×2 (09:30→20:42)
[2021-06-18] MEDS: Senna/Docusate Sodium 1 Tablet 2 TABLET PO ×2 (09:31→20:43)
[2021-06-18] MEDS: Pantoprazole Sodium 40 MG Tablet PO (09:31)
[2021-06-18] MEDS: Magnesium Chloride 64 MG Delay Rel.Tablet 128 MG PO (09:31)
[2021-06-18] MEDS: Multivitamin (Healthy Eyes) Capsule 1 CAP PO (09:31)
[2021-06-18] MEDS: dilTIAZem CD 240 MG Capsule PO (09:32)
[2021-06-18] MEDS: Enoxaparin 100 MG/ML Syringe SC ×2 (09:46→20:41)
[2021-06-18] MEDS: Polyethylene Glycol 3350 17 GM PACKET PO (09:47)
--- NOTE | 2021-06-18 10:39 | CASEMGMT ---
Social Work SW attended pt rounds. Physician stating that he spoke to pt regarding code status, however family involvement is warranted due to pt questionable cognitive status. Phone call to pt Brina to explain code status. Brina is frustrated with pt illness and SW attempted to offer reassurance. SW inquired if pt has been speaking with pt on the phone and she states that pt responds better to dgt Shavonne and she has been talking to pt. Brina agreeable for YESSY to call Shavonne. Phone call to Shavonne and discussed pt code status. Shavonne is understanding and requesting pt remain a full code until she is able to talk with pt and talk to pt. Shavonne plans to visit later today to speak with pt. Nursing and physician updated. ARLYN Villarreal
[2021-06-18] MEDS: 0.9% Saline Lock 10 ML Syringe IV (10:53)
[2021-06-18] MEDS: Furosemide 40 MG/4 ML Vial IV (10:53)
--- NOTE | 2021-06-18 12:28 | PN.HOSP_ITS ---
Subjective Subjective Patient was seen and examined. His oxygen levels are worsening. His daughter is coming in to discuss goals of care Objective Data Objective Data Vital Signs: Vital Signs Temp Pulse Resp BP Pulse Ox 98.3 F 98 27 H 144/96 H 91 06/18/21 12:00 06/18/21 12:00 06/18/21 12:00 06/18/21 12:00 06/18/21 12:00 Oxygen Flow Rate (L/min) 60 Oxygen Delivery Method Airvo Weight: 102.013 kg Body Mass Index (BMI) 37.8 Intake & Output: Intake and Output for Last 24 Hours 06/16/21 06/17/21 06/18/21 23:59 23:59 23:59 Intake Total 449.36 / 584.46 1118.76 / 1118.76 480 / 480 Output Total 735 / 1235 1974 / 1974 900 / 900 Balance -285.64 / -650.54 -856.24 / -856.24 -420 / -420 Medical Nutrition Assessment Dietitian: Malnutrition Criteria Met Start: 06/09/21 11:16 Freq: Status: Active Protocol: Document 06/18/21 11:44 RMA (Rec: 06/18/21 11:44 RMA [id number]) Nutrition Malnutrition Evidence of Malnutrition Exists Yes Malnutrition (severe): Acute Illness/Injury Evidenced By Suboptimal Energy Intake ( Severe),Weight Loss (Severe) Clinical Problem Biting/Chewing Difficulty Etiology related to acute illness/ dentition/dysphagia Signs/Symptoms as evidenced by need for mechanical soft; minced/moist solid foods Status Active Problem Swallowing Difficulty Etiology related to acute illness/ coughing Signs/Symptoms as evidenced by need for nectar/mildly-liquids Status Active Problem Acute Disease or Injury Related Malnutrition Etiology severe acute malnutrition r/t inadequate energy intake w/ increased nutrient needs w/ COVID-19 Signs/Symptoms as evidenced by estimated PO intake meeting <50% of estimated nutritional needs >5 days; unintentional wt loss of 1.9kg/2% x 1 week prior to admission Status Active Problem Recommendation Dietitian Recommendations/Changes Continue regular diet- texture /consistency per TRANSPORTATION PLANNING TECHNICIAN; currently mech (minced/moist) solids and nectar/mildly-thick liquids . Will add 240ml ensure enlive with breakfast and 120ml ensure enlive and ensure pudding BID w/ lunch and dinner. Adjust ONS and restrict diet as needed to optimize nutrition. Lab / Micro Data Result Diagrams: 06/18/21 05:50 06/18/21 05:50 Labs: Laboratory Results - last 24 hr 06/18/21 05:50: WBC 16.1 H, RBC 5.49, Hgb 16.2, Hct 49.2, MCV 89.6, MCH 29.5, MCHC 32.9, RDW Std Deviation 44.3 H, RDW Coeff of [place]ijan 13.6, Plt Count 254, MPV 12.5 H, Immature Gran % (Auto) 1.100 H, Neut % (Auto) 89.4 H, Lymph % (Auto) 4.0 L, [place] % (Auto) 5.3, Eos % (Auto) 0.0, Baso % (Auto) 0.2, Absolute Neuts (auto) 14.4 H, Absolute Lymphs (auto) 0.64 L, Nucleated RBC % 0 06/18/21 05:50: Sodium 143, Potassium 4.8, Chloride 110 H, Carbon Dioxide 31.0, Anion Gap 2 L, BUN 47 H, Creatinine 1.08, Estim Creat Clear Calc 52.70, Est GFR (MDRD) Af Amer 85, Est GFR (MDRD) Non-Af 70, BUN/Creatinine Ratio 43.5 H, Glucose 163 H, Calcium 8.9 06/18/21 05:50: B-Natriuretic Peptide 39.4 06/18/21 08:10: Procalcitonin 0.12 H Radiography Diagnostic Testing: Radiology Impression Chest X-Ray 06/18/21 06:59 IMPRESSION: Bilateral pneumonia. Electronically Signed: Ned Manzano MD at 8:28 EDT , Service support , Physical Exam Narrative Physical exam: General: Alert, Oriented x3, Cooperative, on Airvo, in moderate respiratory distress HEENT: Atraumatic Oral: Dry Mucosa Neck: Supple Lungs: Diminished to auscultation, crackles+ Cardiovascular: HS I+II, regular, no murmurs Abdomen: Bowel Sounds Present, Soft, Non Tender Extremities: Bilateral leg edema Assessment & Plan Assessment/Plan (1) Severe malnutrition: (2) Acute respiratory failure with hypoxia: (3) Severe acute respiratory syndrome: (4) TRANG (acute kidney injury): PLAN: 1. Acute hypoxic respiratory failure secondary to acute COVID-19 pneumonia, worsening Patient is on Airvo, in respiratory distress Wean off for SPO2 more than 94% 2. Acute COVID-19 pneumonia, severe with respiratory failure Patient is unvaccinated; symptoms started on 06/01/2021 Completed dexamethasone and remdesivir Continue on Barcitinib until 06/25/21 3. Acute delirium, present in this admission, off Precedex 4. Severe protein calorie malnutrition, director teen post consulted, will follow up on recommendations 5. Elevated creatinine secondary to dehydration, resolved Charges/Coding Visit Charges Inpatient E&M: 80597 Subs Hosp L3
[2021-06-18] MEDS: Aspirin 81 MG TAB.CHEW PO (20:42)
[2021-06-18] MEDS: MELATONIN 3 MG TABLET PO (20:43)
[2021-06-18] MEDS: Atorvastatin Calcium 20 MG Tablet PO (20:43)
[2021-06-18] MEDS: Acetaminophen 325 MG Tablet 650 MG PO (20:50)
[2021-06-19] VITALS (26 sets, daily range): BP systolic 129–162; BP diastolic 81–122; PULSE 96–117; RESP 12–30; TEMP 36.9–37.3; O2SAT 83–96
--- NOTE | 2021-06-19 01:29 | NURSING ---
0050 This RN noticed pts BP cuff was not reading properly. Upon entering the room, this RN noticed blood on the pts bedding and gown. Upon further inspection, pt had taken out his PICC line from his JAMIE. PICC catheter was placed in cup to be measured. Outline was made around the insertion site to monitor erythema and swelling. Ice pack was placed to help with swelling. Will continue to monitor.
[2021-06-19 05:01] LABS: Absolute Lymphocyte Count 1.22 X10^3/uL (0.83-4.51); Absolute Neutrophil Count 18.8 X10^3/uL (2.0-7.7); Basophil# 0.05 X10^3/uL; Basophil% 0.2 % (0-1); Eosinophil# 0.01 X10^3/uL; Hematocrit 49.6 % (40-54); Hemoglobin 16.3 g/dL (13.0-16.5); Lymphocyte # 1.22 X10^3/ul (0.83-4.51); Lymphocyte % 5.8 % (19-41); Mean Corp Hgb Conc 32.9 g/dL (32-36); Mean Corpuscular Hgb 29.5 pg (27.0-32.0); Mean Corpuscular Volume 89.7 fL (80-94); Mean Platelet Vol. 12.2 fl (6.2-12.0); Monocyte# 0.67 X10^3/uL; Monocyte% 3.2 % (0-10); NRBC Flagged by Analyzer 0 % (0-5); Neutrophil # 18.82 X10^3/uL (2.7-7.7); Neutrophil % 89.6 % (47-70); Platelet Count 308 K/mm3 (150-450); RBC Distribution Width CV 13.7 % (11.6-14.6); RBC Distribution Width SD 45.1 fl (35.1-43.9); Red Blood Count 5.53 M/mm3 (4.6-6.2)
[2021-06-19 05:36] LABS: Anion Gap 7 (5-15); BUN 57 mg/dL (7-18); BUN/Creat Ratio 35.6 RATIO (10-20); Calcium,Total 8.9 mg/dL (8.5-10.1); Chloride 107 mmol/L (98-107); EST Glomerular Filtration Rate 45 mL/min (>60); Est Glom Filt Rate - Afr Amer 54 mL/min (>60); Estimated Creatinine Clearance 35.57 ml/min; Glucose 188 mg/dL (74-106); Potassium 4.5 mmol/L (3.5-5.1); Sodium Level 145 mmol/L (136-145)
--- NOTE | 2021-06-19 07:52 | PCM.PN.INT ---
Assessment & Plan Assessment/Plan (1) Acute respiratory failure with hypoxia: (2) COVID-19: (3) TRANG (acute kidney injury): PLAN: RECOMMENDATIONS: 1. Completed course of remdesivir and Decadron. Okay to continue barcitinib. 2. Continue Airvo heated high flow as tolerated. 3. Continue Lovenox twice daily as ordered. 4. Encourage prone positioning. 5. Avoid diuretics in the future given propensity to develop TRANG. 6. Start scheduled Seroquel. 7. Encourage incentive spirometer use and mobilize patient as tolerated. IMPRESSIONS: 1. Acute hypoxic respiratory failure secondary to COVID-19 pneumonia The patient has completed a treatment course of remdesivir and Decadron. The patient will remain on varus admit to complete a treatment course. His respiratory status is still somewhat tenuous. Plan to continue heated high flow oxygen as tolerated. Goal to maintain oxygen saturations at or above 90%. Awake prone positioning was again encouraged. Continue bronchodilator therapy. Encourage incentive spirometer use and mobilize patient as tolerated. 2. Generalized anxiety Continue BuSpar scheduled twice daily. 3. Obesity/advanced age/asthma/hypertension/chronic pain syndrome/unvaccinated state Complicates care, management, recovery and prognosis. Continue bronchodilator therapy. This note was generated with [employer] dictation software. It may contain incorrect words, spelling, and punctuation that were not noted in checking the note before signing. Subjective Subjective The patient was seen and examined at the bedside this morning. Events from the last 24 hours have been reviewed. The patient is currently afebrile, hemodynamically stable and maintaining appropriate oxygen saturations on Airvo heated high flow with an FiO2 requirement of 93% and flow rate of 60 L/min, plus a nonrebreather. Overnight, the patient once again became agitated and ripped out his PICC line. He continues to refuse to utilize BiPAP. The patient is currently documented to be overall net -3.4 L for the hospital admission. The patient remains on twice daily Lovenox and baricitinib. Creatinine has increased this morning to 1.6. Objective Data Objective Data The patient's most recent lab work, culture data and imaging studies have all been personally reviewed. Vital Signs: Vital Signs Temp Pulse Resp BP Pulse Ox 98.9 F 103 H 24 H 152/104 H 87 06/19/21 00:00 06/19/21 07:00 06/19/21 07:00 06/19/21 07:00 06/19/21 07:00 Oxygen Flow Rate (L/min) 60 Oxygen Delivery Method Airvo Weight: 102.4 kg Body Mass Index (BMI) 37.8 Intake & Output: Intake and Output for Last 24 Hours 06/17/21 06/18/21 06/19/21 23:59 23:59 23:59 Intake Total 1118.76 / 1118.76 720 / 720 Output Total 1974 2865 / 2990 125 / 125 Balance -856.24 / -856.24 -2145 / -2270 -125 / -125 Medical Nutrition Assessment Dietitian: Malnutrition Criteria Met Start: 06/09/21 11:16 Freq: Status: Active Protocol: Document 06/18/21 11:44 RMA (Rec: 06/18/21 11:44 RMA [id number]) Nutrition Malnutrition Evidence of Malnutrition Exists Yes Malnutrition (severe): Acute Illness/Injury Evidenced By Suboptimal Energy Intake ( Severe),Weight Loss (Severe) Clinical Problem Biting/Chewing Difficulty Etiology related to acute illness/ dentition/dysphagia Signs/Symptoms as evidenced by need for mechanical soft; minced/moist solid foods Status Active Problem Swallowing Difficulty Etiology related to acute illness/ coughing Signs/Symptoms as evidenced by need for nectar/mildly-liquids Status Active Problem Acute Disease or Injury Related Malnutrition Etiology severe acute malnutrition r/t inadequate energy intake w/ increased nutrient needs w/ COVID-19 Signs/Symptoms as evidenced by estimated PO intake meeting <50% of estimated nutritional needs >5 days; unintentional wt loss of 1.9kg/2% x 1 week prior to admission Status Active Problem Recommendation Dietitian Recommendations/Changes Continue regular diet- texture /consistency per SECOND WORKER; currently mech (minced/moist) solids and nectar/mildly-thick liquids . Will add 240ml ensure enlive with breakfast and 120ml ensure enlive and ensure pudding BID w/ lunch and dinner. Adjust ONS and restrict diet as needed to optimize nutrition. Lab / Micro Data Attestation: I reviewed the patient's lab results. Result Diagrams: 06/19/21 04:55 06/19/21 04:50 Labs: Laboratory Results - last 24 hr 06/18/21 05:50: B-Natriuretic Peptide 39.4 06/18/21 08:10: Procalcitonin 0.12 H 06/19/21 04:50: Sodium 145, Potassium 4.5, Chloride 107, Carbon Dioxide 31.0, Anion Gap 7, BUN 57 H, Creatinine 1.60 H, Estim Creat Clear Calc 35.57, Est GFR (MDRD) Af Amer 54 L, Est GFR (MDRD) Non-Af 45 L, BUN/Creatinine Ratio 35.6 H, Glucose 188 H, Calcium 8.9 06/19/21 04:55: WBC 21.0 H, RBC 5.53, Hgb 16.3, Hct 49.6, MCV 89.7, MCH 29.5, MCHC 32.9, RDW Std Deviation 45.1 H, RDW Coeff of Bijan 13.7, Plt Count 308, MPV 12.2 H, Immature Gran % (Auto) 1.200 H, Neut % (Auto) 89.6 H, Lymph % (Auto) 5.8 L, [place] % (Auto) 3.2, Eos % (Auto) 0.0, Baso % (Auto) 0.2, Absolute Neuts (auto) 18.8 H, Absolute Lymphs (auto) 1.22, Nucleated RBC % 0 Radiography Diagnostic Testing: Radiology Impression Chest X-Ray 06/18/21 06:59 IMPRESSION: Bilateral pneumonia. Electronically Signed: Ned Manzano MD at 8:28 EDT , Service support , Physical Exam Const alert Constitutional Narrative: Marginal oxygen saturations on Airvo. General Appearance: cooperative Nutritional Appearance: obese HEENT normocephalic and head/scalp atraumatic Eyes PERRL, EOMs intact bilaterally and conjunctivae normal Neck supple General: trachea midline Chest inspection of chest normal Resp Effort and Inspection: tachypneic Auscultation: rales and diminished lung sounds; Negative for rhonchi or wheezes Cardio regular rate, regular rhythm, S1 normal heart sound and S2 normal heart sound GI normal to inspection, nondistended, normoactive bowel sounds Extremity no clubbing, cyanosis or edema Skin no rashes or lesions noted Neuro CN's II-XII intact bilaterally, moves all extremities and no focal motor deficits Psych cooperative Psych Narrative: Odd affect. Charges/Coding Visit Charges Inpatient E&M: 09226 Subs Hosp L3
[2021-06-19] MEDS: QUEtiapine 25 MG Tablet PO ×2 (10:30→20:55)
[2021-06-19] MEDS: busPIRone 5 MG Tablet 10 MG PO ×2 (10:30→20:56)
[2021-06-19] MEDS: Senna/Docusate Sodium 1 Tablet 2 TABLET PO ×2 (10:31→20:56)
[2021-06-19] MEDS: Pantoprazole Sodium 40 MG Tablet PO (10:31)
[2021-06-19] MEDS: dilTIAZem CD 240 MG Capsule PO (10:31)
[2021-06-19] MEDS: Enoxaparin 100 MG/ML Syringe SC ×2 (10:31→20:55)
--- NOTE | 2021-06-19 14:14 | PCM.PN.HOSP ---
Subjective Subjective Patient was seen and examined. He remains on BiPAP. Family is discussing intubation or otherwise. Objective Data Objective Data Vital Signs: Vital Signs Temp Pulse Resp BP Pulse Ox 98.4 F 116 H 15 133/99 H 92 06/19/21 12:00 06/19/21 13:00 06/19/21 13:00 06/19/21 13:00 06/19/21 13:00 Oxygen Flow Rate (L/min) 60 Oxygen Delivery Method Airvo Weight: 102.4 kg Body Mass Index (BMI) 37.8 Intake & Output: Intake and Output for Last 24 Hours 06/17/21 06/18/21 06/19/21 23:59 23:59 23:59 Intake Total 1118.76 / 1118.76 720 / 720 Output Total 1974 2865 / 2990 750 / 750 Balance -856.24 / -856.24 -2145 / -2270 -750 / -750 Medical Nutrition Assessment Dietitian: Malnutrition Criteria Met Start: 06/09/21 11:16 Freq: Status: Active Protocol: Document 06/18/21 11:44 RMA (Rec: 06/18/21 11:44 RMA [id number]) Nutrition Malnutrition Evidence of Malnutrition Exists Yes Malnutrition (severe): Acute Illness/Injury Evidenced By Suboptimal Energy Intake ( Severe),Weight Loss (Severe) Clinical Problem Biting/Chewing Difficulty Etiology related to acute illness/ dentition/dysphagia Signs/Symptoms as evidenced by need for mechanical soft; minced/moist solid foods Status Active Problem Swallowing Difficulty Etiology related to acute illness/ coughing Signs/Symptoms as evidenced by need for nectar/mildly-liquids Status Active Problem Acute Disease or Injury Related Malnutrition Etiology severe acute malnutrition r/t inadequate energy intake w/ increased nutrient needs w/ COVID-19 Signs/Symptoms as evidenced by estimated PO intake meeting <50% of estimated nutritional needs >5 days; unintentional wt loss of 1.9kg/2% x 1 week prior to admission Status Active Problem Recommendation Dietitian Recommendations/Changes Continue regular diet- texture /consistency per IRB COMPLIANCE COORDINATOR; currently mech (minced/moist) solids and nectar/mildly-thick liquids . Will add 240ml ensure enlive with breakfast and 120ml ensure enlive and ensure pudding BID w/ lunch and dinner. Adjust ONS and restrict diet as needed to optimize nutrition. Lab / Micro Data Result Diagrams: 06/19/21 04:55 06/19/21 04:50 Labs: Laboratory Results - last 24 hr 06/19/21 04:50: Sodium 145, Potassium 4.5, Chloride 107, Carbon Dioxide 31.0, Anion Gap 7, BUN 57 H, Creatinine 1.60 H, Estim Creat Clear Calc 35.57, Est GFR (MDRD) Af Amer 54 L, Est GFR (MDRD) Non-Af 45 L, BUN/Creatinine Ratio 35.6 H, Glucose 188 H, Calcium 8.9 06/19/21 04:55: WBC 21.0 H, RBC 5.53, Hgb 16.3, Hct 49.6, MCV 89.7, MCH 29.5, MCHC 32.9, RDW Std Deviation 45.1 H, RDW Coeff of Bijan 13.7, Plt Count 308, MPV 12.2 H, Immature Gran % (Auto) 1.200 H, Neut % (Auto) 89.6 H, Lymph % (Auto) 5.8 L, [place] % (Auto) 3.2, Eos % (Auto) 0.0, Baso % (Auto) 0.2, Absolute Neuts (auto) 18.8 H, Absolute Lymphs (auto) 1.22, Nucleated RBC % 0 Physical Exam Narrative Physical exam: General: Alert, Oriented x3, Cooperative, on Airvo, in moderate respiratory distress HEENT: Atraumatic Oral: Dry Mucosa Neck: Supple Lungs: Diminished to auscultation, crackles+ Cardiovascular: HS I+II, regular, no murmurs Abdomen: Bowel Sounds Present, Soft, Non Tender Extremities: Bilateral leg edema Assessment & Plan Assessment/Plan (1) Severe malnutrition: (2) Acute respiratory failure with hypoxia: (3) Severe acute respiratory syndrome: (4) TRANG (acute kidney injury): PLAN: 1. Acute hypoxic respiratory failure secondary to acute COVID-19 pneumonia, worsening Patient remains on Airvo, in respiratory distress Wean off for SPO2 more than 94% 2. Acute COVID-19 pneumonia, severe with respiratory failure Patient is unvaccinated; symptoms started on 06/01/2021 Completed dexamethasone and remdesivir Continue on Barcitinib until 06/25/21 3. Acute delirium, present in this admission, improved, Off Precedex 4. Severe protein calorie malnutrition, food science technician consulted, will follow up on recommendations 5. Elevated creatinine secondary to dehydration, resolved Charges/Coding Visit Charges Inpatient E&M: 84733 Subs Hosp L3
[2021-06-19] MEDS: Aspirin 81 MG TAB.CHEW PO (20:56)
[2021-06-19] MEDS: Atorvastatin Calcium 20 MG Tablet PO (20:57)
[2021-06-20] VITALS (41 sets, daily range): BP systolic 57–176; BP diastolic 39–116; PULSE 0–128; RESP 12–108; TEMP 35.8–37.1; O2SAT 20–100
[2021-06-20 05:02] LABS: Absolute Lymphocyte Count 1.43 X10^3/uL (0.83-4.51); Absolute Neutrophil Count 19.4 X10^3/uL (2.0-7.7); Basophil# 0.08 X10^3/uL; Basophil% 0.4 % (0-1); Eosinophil# 0.01 X10^3/uL; Hematocrit 49.5 % (40-54); Hemoglobin 16.1 g/dL (13.0-16.5); Lymphocyte # 1.43 X10^3/ul (0.83-4.51); Lymphocyte % 6.5 % (19-41); Mean Corp Hgb Conc 32.5 g/dL (32-36); Mean Corpuscular Volume 89.2 fL (80-94); Mean Platelet Vol. 12.8 fl (6.2-12.0); Monocyte# 0.64 X10^3/uL; Monocyte% 2.9 % (0-10); NRBC Flagged by Analyzer 0 % (0-5); Neutrophil # 19.43 X10^3/uL (2.7-7.7); Neutrophil % 89.1 % (47-70); Platelet Count 302 K/mm3 (150-450); RBC Distribution Width CV 13.6 % (11.6-14.6); RBC Distribution Width SD 43.9 fl (35.1-43.9); Red Blood Count 5.55 M/mm3 (4.6-6.2); White Blood Count 21.8 K/mm3 (4.4-11.0)
[2021-06-20 05:16] LABS: Anion Gap 8 (5-15); BUN 61 mg/dL (7-18); BUN/Creat Ratio 38.9 RATIO (10-20); Calcium,Total 8.8 mg/dL (8.5-10.1); Chloride 110 mmol/L (98-107); Creatinine, Serum 1.57 mg/dL (0.70-1.30); EST Glomerular Filtration Rate 46 mL/min (>60); Est Glom Filt Rate - Afr Amer 55 mL/min (>60); Estimated Creatinine Clearance 36.25 ml/min; Glucose 195 mg/dL (74-106); Magnesium 2.9 mg/dL (1.6-2.6); Phosphorus 3.7 mg/dL (2.5-4.9); Potassium 4.4 mmol/L (3.5-5.1); Sodium Level 148 mmol/L (136-145)
--- NOTE | 2021-06-20 07:02 | PCM.PN.INT ---
Assessment & Plan Assessment/Plan (1) Acute respiratory failure with hypoxia: (2) COVID-19: (3) TRANG (acute kidney injury): PLAN: RECOMMENDATIONS: 1. Proceed with intubation. 2. Once intubated, obtain and send sputum for culture. 3. Wean FiO2/PEEP to maintain oxygen saturations at or above 90%. 4. Check strep and urine Legionella antigens along with MRSA screen. 5. Start empiric antimicrobials. 6. Continue therapeutic Lovenox. 7. Continue baricitinib per ID recommendations. 8. Avoid diuretics in the future given propensity to develop TRANG. 9. Start tube feeds. 10. Continue appropriate GI prophylaxis. IMPRESSIONS: 1. Acute hypoxic respiratory failure secondary to COVID-19 pneumonia The patient has completed a treatment course of remdesivir and Decadron. He will be continued on baricitinib to complete a treatment course. The patient has not made any meaningful improvement in his overall clinical state and is less responsive and more fatigued today. Following a discussion with the patient's family, the decision was made to proceed with intubation. Once intubated, will obtain and send sputum for culture. Will check strep and urine Legionella antigens as well. The patient will be initiated on empiric antimicrobials. He will be continued on assist control mode of mechanical ventilation. FiO2 and PEEP will be weaned to maintain saturations at or above 90%. Therapeutic Lovenox will be continued. 2. Acute kidney injury Likely prerenal in etiology and related to recent Lasix utilization. Diuretics remain on hold. Continue to monitor urine output for now. No current indication for renal replacement therapy. 3. Obesity/advanced age/asthma/hypertension/chronic pain syndrome/unvaccinated state Complicates care, management, recovery and prognosis. Continue bronchodilator therapy. TIME: 40 minutes of critical care time, inclusive of procedures, was spent addressing the patient's acute hypoxemic respiratory failure secondary to COVID-19 pneumonia, acute kidney injury, review of all data and collaboration with care team. ([id number]) Subjective Subjective The patient was seen and examined at the bedside this morning. Events from the last 24 hours have been reviewed. The patient is currently afebrile, hemodynamically stable and maintaining appropriate oxygen saturations on BiPAP currently with an FiO2 requirement of 50%. The patient is currently documented to be overall net -4.6 L for the hospital admission. The patient remains on twice daily Lovenox and baricitinib. White count remains elevated at 22,000. Creatinine remains elevated but is stable at 1.57. The patient appears much more fatigued and is less responsive than previous. He has failed to make any significant meaningful improvement in his overall clinical status over the last 24 hours. I have spoke at length with the patient's daughter and she has discussed things with the patient's and they are both in agreement to keep the patient full code and would like the patient to be intubated, if needed. Intubation Indication: Respiratory failure Consent was obtained from: and daughter The patient was placed in the appropriate sniffing position. Preoxygenated sedation via BiPAP was provided for a minimum of 3 minutes. The patient had continuous cardiac as well as pulse oximetry monitoring during the procedure. Procedure sedation was provided by the administration of 2 mg of Versed and 20 mg of etomidate. Direct laryngoscopy was then performed using a number 4 MAC blade, which revealed a grade 1 view. A 7.5 mm endotracheal tube was visualized advancing between the cords to the level of 23 cm at the lip. The stylette was then removed and discarded. Tube placement was confirmed by fogging in the tube along with equal and bilateral breath sounds. Colorimetric change was visualized on the CO2 meter. The cuff was then inflated and the tube secured using a commercially available device. A good pulse oximetry waveform was seen on the monitor throughout the procedure. A portable chest x-ray has been ordered to confirm appropriate placement. The patient tolerated the procedure well. Objective Data Objective Data The patient's most recent lab work, culture data and imaging studies have all been personally reviewed. Vital Signs: Vital Signs Temp Pulse Resp BP Pulse Ox 98.7 F 106 H 27 H 150/114 H 93 06/20/21 00:00 06/20/21 06:00 06/20/21 06:00 06/20/21 03:00 06/20/21 06:00 Oxygen Flow Rate (L/min) 60 Oxygen Delivery Method Bi-pap Weight: 97.114 kg Body Mass Index (BMI) 37.8 Intake & Output: Intake and Output for Last 24 Hours 06/18/21 06/19/21 06/20/21 23:59 23:59 23:59 Intake Total 720 / 720 120 / 120 Output Total 2865 / 2990 1185 / 1275 205 / 205 Balance -2145 / -2270 -1065 / -1155 -205 / -205 Medical Nutrition Assessment Dietitian: Malnutrition Criteria Met Start: 06/09/21 11:16 Freq: Status: Active Protocol: Document 06/19/21 14:38 BP (Rec: 06/19/21 14:38 BP [id number]) Nutrition Malnutrition Evidence of Malnutrition Exists Yes Malnutrition (severe): Acute Illness/Injury Evidenced By Suboptimal Energy Intake ( Severe),Weight Loss (Severe) Clinical Problem Biting/Chewing Difficulty Etiology related to acute illness/ dentition/dysphagia Signs/Symptoms as evidenced by need for mechanical soft; minced/moist solid foods Status Active Problem Swallowing Difficulty Etiology related to acute illness/ coughing Signs/Symptoms as evidenced by need for nectar/mildly-liquids Status Active Problem Acute Disease or Injury Related Malnutrition Etiology severe acute malnutrition r/t inadequate energy intake w/ increased nutrient needs w/ COVID-19 Signs/Symptoms as evidenced by estimated PO intake meeting <50% of estimated nutritional needs >5 days; unintentional wt loss of 1.9kg/2% x 1 week prior to admission Status Active Problem Recommendation Dietitian Recommendations/Changes Continue regular diet- texture /consistency per MELTER SUPERVISOR [employer]; currently mech (minced/moist) solids and nectar/mildly-thick liquids . Continue 240ml ensure enlive with breakfast and 120ml ensure enlive and ensure pudding BID w/ lunch and dinner. Adjust ONS and restrict diet as needed to optimize nutrition. Lab / Micro Data Attestation: I reviewed the patient's lab results. Result Diagrams: 06/20/21 04:40 06/20/21 04:40 Labs: Laboratory Results - last 24 hr 06/20/21 04:40: WBC 21.8 H, RBC 5.55, Hgb 16.1, Hct 49.5, MCV 89.2, MCH 29.0, MCHC 32.5, RDW Std Deviation 43.9, RDW Coeff of Bijan 13.6, Plt Count 302, MPV 12.8 H, Immature Gran % (Auto) 1.100 H, Neut % (Auto) 89.1 H, Lymph % (Auto) 6.5 L, [place] % (Auto) 2.9, Eos % (Auto) 0.0, Baso % (Auto) 0.4, Absolute Neuts (auto) 19.4 H, Absolute Lymphs (auto) 1.43, Nucleated RBC % 0 06/20/21 04:40: Sodium 148 H, Potassium 4.4, Chloride 110 H, Carbon Dioxide 30.0, Anion Gap 8, BUN 61 H, Creatinine 1.57 H, Estim Creat Clear Calc 36.25, Est GFR (MDRD) Af Amer 55 L, Est GFR (MDRD) Non-Af 46 L, BUN/Creatinine Ratio 38.9 H, Glucose 195 H, Calcium 8.8, Phosphorus 3.7, Magnesium 2.9 H Physical Exam Const General Appearance: lethargic, ill appearing and on BiPAP Nutritional Appearance: obese HEENT normocephalic and head/scalp atraumatic Eyes PERRL and EOMs intact bilaterally Neck supple General: trachea midline Chest inspection of chest normal Resp Effort and Inspection: tachypneic Auscultation: diminished lung sounds; Negative for rales, rhonchi or wheezes Cardio S1 normal heart sound and S2 normal heart sound Rate: tachycardic GI normal to inspection, nondistended, normoactive bowel sounds Extremity no clubbing, cyanosis or edema Skin Skin Narrative: Improving ecchymoses over right upper extremity Neuro no focal motor deficits Psych Mood & Affect: flat affect Charges/Coding Procedures Hospitalists Procedures: [id number] Critial Care 1st Hr
--- NOTE | 2021-06-20 07:33 | PCM.PN.HOSP ---
Subjective Subjective Patient was seen and examined. Oxygen sats were low on continuous BiPAP. He was intubated this morning. Objective Data Objective Data Vital Signs: Vital Signs Temp Pulse Resp BP Pulse Ox 98.7 F 106 H 27 H 150/114 H 93 06/20/21 00:00 06/20/21 06:00 06/20/21 06:00 06/20/21 03:00 06/20/21 06:00 Oxygen Flow Rate (L/min) 60 Oxygen Delivery Method Bi-pap Weight: 97.114 kg Body Mass Index (BMI) 37.8 Intake & Output: Intake and Output for Last 24 Hours 06/18/21 06/19/21 06/20/21 23:59 23:59 23:59 Intake Total 720 / 720 120 / 120 Output Total 2865 / 2990 1185 / 1275 / Balance -2145 / -2270 -1065 / -1155 - / -205 Medical Nutrition Assessment Dietitian: Malnutrition Criteria Met Start: 06/09/21 11:16 Freq: Status: Active Protocol: Document 06/19/21 14:38 BP (Rec: 06/19/21 14:38 BP [id number]) Nutrition Malnutrition Evidence of Malnutrition Exists Yes Malnutrition (severe): Acute Illness/Injury Evidenced By Suboptimal Energy Intake ( Severe),Weight Loss (Severe) Clinical Problem Biting/Chewing Difficulty Etiology related to acute illness/ dentition/dysphagia Signs/Symptoms as evidenced by need for mechanical soft; minced/moist solid foods Status Active Problem Swallowing Difficulty Etiology related to acute illness/ coughing Signs/Symptoms as evidenced by need for nectar/mildly-liquids Status Active Problem Acute Disease or Injury Related Malnutrition Etiology severe acute malnutrition r/t inadequate energy intake w/ increased nutrient needs w/ COVID-19 Signs/Symptoms as evidenced by estimated PO intake meeting <50% of estimated nutritional needs >5 days; unintentional wt loss of 1.9kg/2% x 1 week prior to admission Status Active Problem Recommendation Dietitian Recommendations/Changes Continue regular diet- texture /consistency per BLENDING COORDINATOR; currently mech (minced/moist) solids and nectar/mildly-thick liquids . Continue 240ml ensure enlive with breakfast and 120ml ensure enlive and ensure pudding BID w/ lunch and dinner. Adjust ONS and restrict diet as needed to optimize nutrition. Lab / Micro Data Result Diagrams: 06/20/21 04:40 06/20/21 04:40 Labs: Laboratory Results - last 24 hr 06/20/21 04:40: WBC 21.8 H, RBC 5.55, Hgb 16.1, Hct 49.5, MCV 89.2, MCH 29.0, MCHC 32.5, RDW Std Deviation 43.9, RDW Coeff of Bijan 13.6, Plt Count 302, MPV 12.8 H, Immature Gran % (Auto) 1.100 H, Neut % (Auto) 89.1 H, Lymph % (Auto) 6.5 L, [place] % (Auto) 2.9, Eos % (Auto) 0.0, Baso % (Auto) 0.4, Absolute Neuts (auto) 19.4 H, Absolute Lymphs (auto) 1.43, Nucleated RBC % 0 06/20/21 04:40: Sodium 148 H, Potassium 4.4, Chloride 110 H, Carbon Dioxide 30.0, Anion Gap 8, BUN 61 H, Creatinine 1.57 H, Estim Creat Clear Calc 36.25, Est GFR (MDRD) Af Amer 55 L, Est GFR (MDRD) Non-Af 46 L, BUN/Creatinine Ratio 38.9 H, Glucose 195 H, Calcium 8.8, Phosphorus 3.7, Magnesium 2.9 H Physical Exam Narrative Physical exam: General: Alert, Oriented x3, Cooperative, on Bipap, in moderate respiratory distress HEENT: Atraumatic Oral: Dry Mucosa Neck: Supple Lungs: Diminished to auscultation Cardiovascular: HS I+II, regular, no murmurs Abdomen: Bowel Sounds Present, Soft, Non Tender Extremities: Bilateral leg edema trace Assessment & Plan Assessment/Plan (1) Severe malnutrition: (2) Acute respiratory failure with hypoxia: (3) Severe acute respiratory syndrome: (4) TRANG (acute kidney injury): PLAN: 1. Acute hypoxic respiratory failure secondary to acute COVID-19 pneumonia, worsened Status post intubation on 06/20/21. Initially did not want to be intubated, but he kept changing his CODE STATUS but Family weighed in on this for several days; agreed to be intubated Symptoms started on 06/01/2021 Admitted on 06/08/21 with 8 days of symptoms Diagnosed on 06/04/21 Not vaccinated Started on dexamethasone and remdesivir on admission; completed remdesivir ID, pulmonology consulted Started on Baracitinib on 06/11/21; continue until 06/25/21 WBC count has not improved; currently 21.8 Continue on vent settings per inspector conveyor line Started on empiric antibiotics-IV Zosyn? Urine Legionella and streptococcal antigen as well as sputum cultures are pending 2. Acute delirium, appears to wax and wane during this hospitalization especially in ICU Now intubated He was on Precedex; now off 3. Severe protein calorie malnutrition, energy sales consultant consulted, will follow up on recommendations 4. Elevated creatinine secondary to dehydration, resolved Charges/Coding Visit Charges Inpatient E&M: 46887 Subs Hosp L3
--- NOTE | 2021-06-20 10:41 | RAD_ITS ---
STUDY: X-RAY CHEST REASON FOR EXAM: Male, 76 years old. et tube placement TECHNIQUE: Frontal view COMPARISON: 06/18/2021 FINDINGS: Endotracheal tube with tip 50 mm above the sharmila. Nasogastric tube is in the stomach. The lungs are expanded. Persistent bilateral patchy infiltrates similar to previous study. Normal size heart. Normal mediastinum and samira. Normal visualized pulmonary arteries. Normal visualized aortic arch and descending thoracic aorta. Degenerative changes of the thoracic spine. Normal visualized ribs, clavicles, and shoulders. There is no demonstrated abnormality of the visualized soft tissue structures of the upper abdomen. RAD/Chest 1 View (Portable) IMPRESSION: Persistent bilateral infiltrates. Electronically Signed: Zoran Jean DO at 11:30 EDT Tel [phone], Service support ,
[2021-06-20] MEDS: Enoxaparin 100 MG/ML Syringe SC ×2 (10:44→21:00)
[2021-06-20] MEDS: dilTIAZem CD 240 MG Capsule PO (11:10)
[2021-06-20] MEDS: Multivitamin (Healthy Eyes) Capsule 1 CAP PO (11:10)
[2021-06-20] MEDS: Senna/Docusate Sodium 1 Tablet 2 TABLET PO ×2 (11:10→20:55)
[2021-06-20] MEDS: Pantoprazole Sodium 40 MG Tablet PO (11:11)
[2021-06-20] MEDS: Magnesium Chloride 64 MG Delay Rel.Tablet 128 MG PO (11:11)
[2021-06-20] MEDS: Polyethylene Glycol 3350 17 GM PACKET PO (11:12)
[2021-06-20] MEDS: Propofol 10MG/Ml 1,000 MG/100 ML Bottle 5.8 MG CONT INF (11:15)
--- NOTE | 2021-06-20 11:39 | RAD_ITS ---
HISTORY: og placement. TECHNIQUE: XR Chest 1 View. EXAM TIME: 2021-06-20 11:40. # of images incl. paperwork: 1. COMPARISON:10:48. FINDINGS: LINES/DEVICES: Nasogastric tube tip in the mid upper abdomen in the region of the stomach. Endotracheal tube likely out of the [id number]. CARDIOMEDIASTINAL BORDERS: Stable. LUNGS: Patchy bilateral pneumonia again seen. PLEURA: No pleural effusion seen and the costophrenic angles with the lung apices excluded from the [id number]. RAD/Chest 1 View (Portable) IMPRESSION: Nasogastric tube tip extending to the region of the stomach. at 1326 Reported and signed by: Jolynn Delgado MD Electronically Signed: Jolynn Delgado MD at 13:25 EDT Tel , Service support ,
[2021-06-20 12:01] LABS: Allen Test Positive; Base Excess 5 mmol/L (-2 to +2); Bicarbonate 28.7 mmol/L (22-26); Blood Gas Specimen Type ART; FI02 80; Mode AC; O2 Delivery Device Adult Vent; PEEP 12; PO2 96 mmHG (75-100); RR 16; SITE L Radial; SO2 98 % (95-99); Total Carbon Dioxide 30 mmol/L; Vt 450; pCO2 41.8 mmHg (35-45); pH 7.45 (7.35-7.45)
[2021-06-20 13:02] LABS: CPK Total, Creatine Kinase 1295 U/L (39-308); Triglycerides 511 mg/dL
--- NOTE | 2021-06-20 13:47 | NURSING ---
06/20/21 1037 am, versed given for intubation, 1038 Etomidate given, 1044am pt successfully intubated, tolerating well. tube is 7.5 and 23 at the lip
[2021-06-20 14:24] LABS: M R Staph aureus DNA By PCR Negative (Negative); Probe Check PASS; Specimen Processing Control PASS
[2021-06-20] MEDS: Propofol 10MG/Ml 1,000 MG/100 ML Bottle 11.7 MG CONT INF (15:00)
[2021-06-20] MEDS: Atorvastatin Calcium 20 MG Tablet PO (20:54)
[2021-06-20] MEDS: Aspirin 81 MG TAB.CHEW PO (20:55)
--- NOTE | 2021-06-20 22:30 | NURSING ---
Dr. Katelynn Willams at bedside for central line placement.
[2021-06-20 22:56] LABS: Allen Test Positive; Base Excess -8 mmol/L (-2 to +2); Bicarbonate 19.7 mmol/L (22-26); Blood Gas Specimen Type ART; FI02 100; Mode AC; O2 Delivery Device Adult Vent; PEEP 12; PO2 110 mmHG (75-100); RR 16; SITE L Radial; SO2 97 % (95-99); Total Carbon Dioxide 21 mmol/L; Vt 450; pCO2 45.5 mmHg (35-45); pH 7.24 (7.35-7.45)
--- NOTE | 2021-06-20 23:05 | NURSING ---
Rapid response called.
--- NOTE | 2021-06-20 23:10 | NURSING ---
Rapid response advanced to [place]
--- NOTE | 2021-06-20 23:44 | PCM.HOSP.N ---
Hospitalist Note Central line note: Patient with ongoing hypotension per ICU staff note. Given MAP not maintaining >65, discussed with ICU staff with request to Hospitalist for central line placement to initiate pressor therapy. Consent obtained for placement of central line. R IJ region prepped and draped in standard fashion. US guidance used to obtain access, guidewire threaded without issue, central line catheter placed over guidewire and wire removed w/ cap placed. Lines again drawn and flushed without difficulty. Central line sutured in place. CXR ordered. Procedures Hospitalists Procedures: [id number] Insert Non-tunnel CV Cath
--- NOTE | 2021-06-20 23:46 | PCM.HOSP.N ---
Hospitalist Note CODE BLUE NOTE: Following placement of central line patient with noted bradycardia, atropine administered at 2309 however patient became pulseless and CPR initiated at 2310. Patient following this administered epinephrine and 2 A of bicarb. At 2315 pulse noted, patient noted to be in third-degree block transition to SVT at 2316. Patient ministered 200 J eventually transition to again third-degree block. Patient with recurrent SVT with failed cardioversion attempts. 300 mg amnio bolus administered and requested drip in addition to pressor therapy. Patient's presented at this time and discussed patient's current status. Patient's transitioned him to comfort care and sat with him until he passed at 2329. Dr. Beatty updated on patient status. Date of : 06/20/2021 Time of : 23:29
--- NOTE | 2021-06-20 23:53 | EXP.PCM_ITS ---
Preliminary Cause of Preliminary Cause of Preliminary Cause of : Acute Hypoxic Respiratory Failure secondary to Acute COVID-19 Pneumonia in unvaccinated state Date of Admission: 06/08/21 Principle Diagnosis Problem List: Active and Suspected Problems (Updated 06/16/21 @ 12:[address] Elisha Cortes MD) Severe malnutrition (Acute) Acute respiratory failure with hypoxia (Acute) COVID-19 (Acute) Dehydration (Acute) Hypoxia (Acute) Severe acute respiratory syndrome (Acute) TRANG (acute kidney injury) (Acute) Hospital Course Patient admitted on 06/08/21 with BL pneumonia secondary to Acute COVID-19 viral syndrome with history of progressively worsening dyspnea, headache and body aches 8 days prior to presentation with decreased oral intake. He had denied at that time any associated nausea, emesis, diarrhea or any alteration sense of taste or smell. Patient was initially admitted to the floor and initiated on supplemental oxygen with remdesivir and Decadron however he became more hypoxic and required BiPAP on 06/12/2021. Patient was treated at that time additionally treated with barcitinib and pulse diuresed in addition to therapeutic lovenox with close renal and liver function monitoring. The patient was also placed on codeine to help prevent development of pneumomediastinum. Licensed Pesticide Applicator and Infectious disease followed patient. Patient clinically worsened and was intubated 06/20/2021 earlier in the day. Towards the evening patient blood pressures noted to be decreased therefore central line placed. Following placement of central line patient with noted bradycardia, atropine administered at 2309 however patient became pulseless and CPR initiated at 2310. Patient following this administered epinephrine and 2 A of bicarb. At 2315 pulse noted, patient noted to be in third-degree block transition to SVT at 2316. Patient ministered 200 J eventually transition to again third-degree block. Patient with recurrent SVT with failed cardioversion attempts. 300 mg amnio bolus administered and requested drip in addition to pressor therapy. Patient's presented at this time and discussed patient's current status. Patient's transitioned him to comfort care and sat with him until he passed at 2329. Dr. Beatty updated on patient status.
== END 2021-06-20 23:29 | DRG 208 ==
LOC: ED 23:32 → MS3 23:48 → ICU 06-12 11:20
PROVIDERS: Internal Medicine Critical Care Medicine; Internal Medicine Infectious Disease; Admitting Provider Hospitalist; Emergency Provider Emergency Medicine; PCP Internal Medicine; Visit Provider Internal Medicine
DX: U07.1 COVID-19 (principal); J12.82 Pneumonia due to coronavirus disease 2019; J96.01 Acute respiratory failure with hypoxia; E43 Unspecified severe protein-calorie malnutrition; N17.9 Acute kidney failure, unspecified; I47.1 Supraventricular tachycardia; I44.2 Atrioventricular block, complete; I95.9 Hypotension, unspecified; E87.6 Hypokalemia; F41.1 Generalized anxiety disorder; R41.0 Disorientation, unspecified; I12.9 Hypertensive chronic kidney disease with stage 1 through stage 4 chronic kidney disease, or unspecified chronic kidney disease; N18.31 Chronic kidney disease, stage 3a; G89.4 Chronic pain syndrome; E86.0 Dehydration; E66.9 Obesity, unspecified; Z68.37 Body mass index [BMI] 37.0-37.9, adult; J45.909 Unspecified asthma, uncomplicated; Z66 Do not resuscitate; Z87.891 Personal history of nicotine dependence
CPT/HCPCS: 31500; 31720; 36415; 36569; 36600; 71045; 80048; 80053; 80076; 82550; 82803; 83735; 83880; 84100; 84145; 84478; 85025; 85027; 85379; 86140; 87070; 87205; 87449; 87641; 92507; 92526; 92610; 92950; 94002; 94003; 94660; 94760; 94762; 97110; 97162; 97166; 97530; 97535; 97802; 99251; 99282; J7030; J7050; A4216; G0463; J1940; J3010